=== PATIENT | male | born 1955 | race Caucasian/White ===

== ENCOUNTER 2017-08-06 20:28 | Inpatient (IN) | payer MEDICARE, OTHER ==
[~2017-08-06] VITALS: Ht 180.3 cm; Wt 136.3 kg
[2017-08-06 21:02] LABS: BASOPHILS % (AUTO) 1.3 % (0.0-2.0); EOSINOPHILS % (AUTO) 3.1 % (0.0-3.0); HEMATOCRIT 49.5 % (42.0-52.0); HEMOGLOBIN 17.4 G/DL (14.2-18.0); MEAN CORPUSCULAR VOLUME 88 FL (80-99); MONOCYTES % (AUTO) 9.9 % (1.0-10.0); NEUTROPHILS % (AUTO) 53.7 % (45.0-75.0); PLATELET COUNT 167 K/UL (150-450); RED CELL DISTRIBUTION WIDTH 12.1 % (11.6-14.8); WHITE BLOOD COUNT 10.6 K/UL (4.8-10.8)
[2017-08-06 21:06] LABS: ANION GAP 5 mmol/L (5-15); BLOOD UREA NITROGEN 18 mg/dL (7-18); CALCIUM 9.5 MG/DL (8.5-10.1); CARBON DIOXIDE 29 MMOL/L (21-32); CHLORIDE 103 MMOL/L (98-107); CREATININE 0.9 MG/DL (0.55-1.30); POTASSIUM 3.9 MMOL/L (3.5-5.1); SODIUM 137 MMOL/L (136-145)
--- NOTE | 2017-08-06 21:09 | Emergency Room Report ---
History of Present Illness General Chief Complaint: Chest Pain Source: Patient, Medical Record, EMS Present Illness HPI This is a 62-year-old male who has a history of schizophrenia and also has a pacemaker. [facility]. He presents with chief complaint of chest pain. This is an ongoing problem for several months. He said his been on and off since March. But seemed to be getting worse in the last week. Pain is nonexertional localized the left chest. Better when he goes to sleep. Usually lasts for a few hours. No nausea no vomiting. No fever or chills. Denies any other complaint. He said this is the first time that he tell anybody at the [facility]iary. EMS gave him aspirin and nitroglycerin which seemed to help. Denies any other complaint. No shortness of breath. No diaphoresis. Legs has chronic edema. He is wheelchair-bound. Allergies: Coded Allergies: No Known Allergies (Unverified , 08/06/17) Patient History Past Medical History: see triage record, old chart reviewed, psych hx Past Surgical History: pacemaker Pertinent Family History: none Social History: Reports: smoking Immunizations: other Reviewed Nursing Documentation: PMH: Agreed; PSxH: Agreed Nursing Documentation-PMH Past Medical History: No History, Except For Hx Hypertension: Yes Hx Pacemaker: Yes Hx Asthma: No - Bronchitis Hx Gastrointestinal Problems: Yes - Inflammatory Liver Disease History Of Psychiatric Problem: Yes - Schizophrenia, Anxiety, Major Depressive Disorder Hx Neurological Problems: No - Artifical left Hip Joint, Muscle Weakness, Localized edema, Gout Review of Systems Eye: Denies: eye pain, blurred vision ENT: Denies: ear pain, nose congestion, throat swelling Respiratory: Denies: cough, shortness of breath Cardiovascular: Reports: chest pain; Denies: palpitations Gastrointestinal: Denies: abdominal pain, diarrhea, nausea, vomiting Musculoskeletal: Denies: back pain, joint pain Skin: Denies: rash Neurological: Denies: headache, numbness Endocrine: Denies: increased thirst, increased urine Hematologic/Lymphatic: Denies: easy bruising All Other Systems: negative except mentioned in HPI Physical Exam Vital Signs Date Time Temp Pulse Resp B/P (MAP) Pulse Ox O2 Delivery O2 Flow Rate FiO2 08/06/17 20:22 97.8 96 18 167/85 97 Room Air 97.9 08/06/17 20:26 2.0 vitals with high blood pressure Sp02 EP Interpretation: reviewed, normal General Appearance: well appearing, no apparent distress, alert, obese Head: normocephalic, atraumatic Eyes: bilateral eye PERRL, bilateral eye EOMI ENT: hearing grossly normal, normal pharynx Neck: full range of motion, supple, no meningismus Respiratory: chest non-tender, lungs clear, normal breath sounds Cardiovascular #1: regular rate, rhythm, no murmur Gastrointestinal: normal bowel sounds, non tender, no mass, no organomegaly, no bruit, non-distended Musculoskeletal: back normal, normal range of motion, other - Lower extremities : There is lymphedema. There is hyperemia of the skin to the lower extremities. Some mild warmth on right versus left. Psychiatric: mood/affect normal Skin: warm/dry Medical Decision Making Diagnostic Impression: Primary Impression: Chest pain Qualified Codes: R07.9 - Chest pain, unspecified Additional Impression: Morbid obesity with BMI of 40.0-44.9, adult ER Course This patient presents with chest pain intermittently for prolonged period of time. He does have risk factor with his obesity, smoking, questionable previous heart issue with his maker. Troponin negative. EKG unremarkable. We' ll admit for further workup and cardiology consult. I contacted Dr. Valdez for admission. Lab Results Impression labs unremarkable EKG Diagnostic Results Rate: normal Rhythm: NSR ST Segments: no acute changes Rhythm Strip Diag. Results Rhythm Strip Time: 21:08 EP Interpretation: yes Rate: 70 Rhythm: NSR, no PVC's, no ectopy Chest X-Ray Diagnostic Results Chest X-Ray Diagnostic Results : Chest X-Ray Ordered: Yes # of Views/Limited/Complete: 1 View Indication: Chest Pain EP Interpretation: Yes Interpretation: no consolidation, no effusion, no pneumothorax, no acute cardiopulmonary disease, other - CM, pacer Impression: No acute disease Electronically Signed by: Anders Ray MD Last Vital Signs Date Time Temp Pulse Resp B/P (MAP) Pulse Ox O2 Delivery O2 Flow Rate FiO2 08/06/17 20:26 96 18 Nasal Cannula 2.0 08/06/17 20:22 97.8 167/85 97 97.9 Status: improved Disposition: ADMITTED INPATIENT Condition: Serious ANDERS RAY M.D. Aug 06, 2017 21:09
[2017-08-06] MEDS ORDERED: cefTRIAXone 1 GM in NS 55 ML IVPB ONE (21:15)
[2017-08-06 21:17] LABS: ALANINE AMINOTRANSFERASE 84 U/L (12-78); ALBUMIN 3.2 G/DL (3.4-5.0); ALBUMIN/GLOBULIN RATIO 0.6 (1.0-2.7); ALKALINE PHOSPHATASE 90 U/L (46-116); ASPARTATE AMINO TRANSFERASE 48 U/L (15-37); BILIRUBIN,TOTAL 0.3 MG/DL (0.2-1.0)
--- NOTE | 2017-08-06 21:21 | Diagnostic Imaging Report ---
EXAM: XR Chest, 1 View CLINICAL HISTORY: CP TECHNIQUE: Frontal view of the chest. COMPARISON: No relevant prior studies available. FINDINGS: Lungs: Unremarkable. No consolidation. Pleural space: Unremarkable. No pneumothorax. Heart: Cardiomegaly. Mediastinum: Unremarkable. Bones/joints: Unremarkable. Tubes, lines and devices: Left chest pacer. IMPRESSION: Cardiomegaly, otherwise unremarkable chest.
[2017-08-06] MEDS ORDERED: DULCOLAX10 MG RC (22:12)
[2017-08-06] MEDS ORDERED: BENZTROPINE ME0.5 MG PO (22:12)
[2017-08-06] MEDS ORDERED: ALBUTEROL2.5 MG/3 M INH (22:12)
[2017-08-06] MEDS ORDERED: FLEET ENEMA133 ML RECTAL (22:13)
[2017-08-06] MEDS ORDERED: GABAPENTIN300 MG ORAL (22:13)
[2017-08-06] MEDS ORDERED: GABAPENTIN100 MG ORAL (22:13)
[2017-08-06] MEDS ORDERED: SYNTHROID25 MCG ORAL (22:15)
[2017-08-06] MEDS ORDERED: LATUDA40 MG PO (22:15)
[2017-08-06] MEDS ORDERED: LISINOPRIL20 MG ORAL (22:15)
[2017-08-06] MEDS ORDERED: MILK OF MA400 MG/51 ORAL (22:22)
[2017-08-06] MEDS ORDERED: POTASSIUM CHLO20 ME1 ORAL (22:22)
[2017-08-06] MEDS ORDERED: ACETAMINOPHEN325 M1 ORAL (22:22)
[2017-08-06 22:30] VITALS: BP 111/41
[2017-08-06 23:30] VITALS: BP 102/54
[2017-08-07] VITALS: BP 102/54
[2017-08-07] MEDS ORDERED: Morphine Sulfate 2mg/ml Inj IVP PRN (03:45)
[2017-08-07] MEDS ORDERED: Albuterol/Ipratropium 3ml neb HHN PRN (03:45)
[2017-08-07] MEDS ORDERED: Nitroglycerin Subl 0.4mg tab SL PRN (03:45)
[2017-08-07] MEDS ORDERED: Enalaprilat 2.5mg/2ml Inj IV PRN (03:45)
[2017-08-07] MEDS ORDERED: Ketorolac 30mg Inj IV PRN (03:45)
[2017-08-07] MEDS ORDERED: dilTIAZem HCl 25mg/5ml Inj IV PRN (03:45)
[2017-08-07] MEDS ORDERED: Miralax 17gm pkt ORAL PRN (03:45)
[2017-08-07 04:00] VITALS: BP 100/65
--- NOTE | 2017-08-07 07:16 | Consultation ---
History of Present Illness General Date patient seen: Aug 07, 2017 Time patient seen: 06:45 Chief Complaint: Chest Pain Referring physician: Dr. Valdez Reason for Consultation: in hospital mnagement, asthma/bronchitis Present Illness HPI 62 years old male with past medical history of HTN, bronchitis/asthma, pacemaker , liver disease, hypothyroidism schizophrenia, anxiety, depression, resident of detention facility presented to emergency room with chief complaint of chest pain. ongoing problem for several months chest pain described as nonexertional ,lasting usually few hours. no fever no chills no shortness of breath no dizziness no palpitation sleep helps to alleviate pain paramedics gave en route nitroglycerin and aspirin with some relief Upon evaluation stable vital signs except elevated blood pressure 165/87 troponin negative , pro BNP 35 EKG revealed normal sinus rhythm, no acute ischemic changes Chest x-ray revealed no acute cardiopulmonary pathology Stable renal parameters and electrolytes no leukocytosis stable hemoglobin and hematocrit AST 48 ALT 84 patient admitted for further workup Allergies: Coded Allergies: No Known Allergies (Unverified , 08/06/17) Medication History Scheduled Benztropine Mesylate* (Cogentin*), 1 MG PO BID, (Reported) Gabapentin* (Gabapentin*), 300 MG ORAL BEDTIME, (Reported) Gabapentin* (Gabapentin*), 100 MG ORAL THREE TIMES A DAY, (Reported) Levothyroxine Sodium* (Synthroid*), 50 MCG ORAL DAILY, (Reported) Lisinopril (Lisinopril*), 20 MG ORAL DAILY, (Reported) Lurasidone Hcl (Latuda), 40 MG PO BEDTIME, (Reported) Magnesium Hydroxide* (Milk Of Magnesia*), 30 ML ORAL EVERY 3 DAYS, (Reported) Potassium Chloride* (K-Dur*), 20 MEQ ORAL DAILY, (Reported) Scheduled PRN Acetaminophen* (Acetaminophen 325MG Tablet*), 650 MG ORAL Q4H PRN for Fever/ Headache/Mild Pain, (Reported) Albuterol Sulfate* (Albuterol Sulfate Hhn*), 3 ML INH Q6H PRN for Shortness of Breath, (Reported) Bisacodyl (Dulcolax), 10 MG RC DAILY PRN for Constipation, (Reported) Na Phos,M-B/Na Phos,Di-Ba* (Fleet Enema*), 133 ML RECTAL EVERY OTHER DAY PRN for Constipation, (Reported) Patient History Healthcare decision maker Resuscitation status Full Code Advanced Directive on File No Review of Systems Constitutional: Reports: weakness Eye: Reports: no symptoms ENT: Reports: no symptoms Respiratory: Reports: see HPI, other - bronchitis, asthma Cardiovascular: Reports: see HPI, other - pacemaker, HTN Gastrointestinal: Reports: other - liver disease Genitourinary: Reports: no symptoms Musculoskeletal: Reports: other - w/chair bound Psychiatric: Reports: other - schizophrenia, anxiety, depression Neurological: Reports: no symptoms Endocrine: Reports: other - hypothyroidism Hematologic/Lymphatic: Reports: no symptoms Physical Exam General Appearance: no apparent distress, morbidly obese, other - awake, alert Lines, tubes and drains: peripheral HEENT: normocephalic, atraumatic, anicteric, mucous membranes moist, PERRL Neck: supple Respiratory/Chest: lungs clear, no respiratory distress, no accessory muscle use Cardiovascular/Chest: normal rate - SR on tele Abdomen: normal bowel sounds, non tender, soft - obese Extremities: other - +1 edema BLE Neurologic: abnormal gait - w/chair bound , alert, responsive Last 24 Hour Vital Signs Date Time Temp Pulse Resp B/P (MAP) Pulse Ox O2 Delivery O2 Flow Rate FiO2 08/07/17 04:00 97.6 71 18 100/65 93 Nasal Cannula 2.0 97.6 08/07/17 03:51 56 08/07/17 00:00 68 08/07/17 00:00 97.5 70 20 102/54 93 Nasal Cannula 2.0 97.5 08/06/17 23:30 97.6 70 17 102/54 95 Nasal Cannula 2.0 97.6 08/06/17 23:20 60 15 101/46 95 Nasal Cannula 2.0 08/06/17 22:30 63 17 111/41 95 Nasal Cannula 2.0 08/06/17 20:26 96 18 Nasal Cannula 2.0 08/06/17 20:22 97.8 96 18 167/85 97 Room Air 97.9 Intake and Output 08/06/17 08/07/17 19:00 07:00 Intake Total 310 ml Balance 310 ml Intake Oral 200 ml IV Total 110 ml # Voids 3 Laboratory Tests Test 08/06/17 20:20 08/07/17 05:15 White Blood Count 10.6 K/UL (4.8-10.8) Red Blood Count 5.60 M/UL (4.70-6.10) Hemoglobin 17.4 G/DL (14.2-18.0) Hematocrit 49.5 % (42.0-52.0) Mean Corpuscular Volume 88 FL (80-99) Mean Corpuscular Hemoglobin 31.1 PG (27.0-31.0) H Mean Corpuscular Hemoglobin Concent 35.2 G/DL (32.0-36.0) Red Cell Distribution Width 12.1 % (11.6-14.8) Platelet Count 167 K/UL (150-450) Mean Platelet Volume 9.5 FL (6.5-10.1) Neutrophils (%) (Auto) 53.7 % (45.0-75.0) Lymphocytes (%) (Auto) 32.0 % (20.0-45.0) Monocytes (%) (Auto) 9.9 % (1.0-10.0) Eosinophils (%) (Auto) 3.1 % (0.0-3.0) H Basophils (%) (Auto) 1.3 % (0.0-2.0) Sodium Level 137 MMOL/L (136-145) Potassium Level 3.9 MMOL/L (3.5-5.1) Chloride Level 103 MMOL/L (98-107) Carbon Dioxide Level 29 MMOL/L (21-32) Anion Gap 5 mmol/L (5-15) Blood Urea Nitrogen 18 mg/dL (7-18) Creatinine 0.9 MG/DL (0.55-1.30) Estimat Glomerular Filtration Rate > 60 mL/min (>60) Glucose Level 117 MG/DL (74-106) H Calcium Level 9.5 MG/DL (8.5-10.1) Total Bilirubin 0.3 MG/DL (0.2-1.0) Aspartate Amino Transf (AST/SGOT) 48 U/L (15-37) H Alanine Aminotransferase (ALT/SGPT) 84 U/L (12-78) H Alkaline Phosphatase 90 U/L (46-116) Troponin I 0.000 ng/mL (0.000-0.056) 0.000 ng/mL (0.000-0.056) Pro-B-Type Natriuretic Peptide 35 pg/mL (0-125) Total Protein 8.2 G/DL (6.4-8.2) Albumin 3.2 G/DL (3.4-5.0) L Globulin 5.0 g/dL Albumin/Globulin Ratio 0.6 (1.0-2.7) L Height (Feet): 5 Height (Inches): 11.00 Weight (Pounds): 305 Medications Current Medications Medications (Trade) Dose Ordered Sig/Aster Route PRN Reason Start Time Stop Time Status Last Admin Dose Admin Acetaminophen (Tylenol) 650 mg Q4H PRN ORAL FEVER 08/07/17 03:45 09/06/17 03:44 Albuterol/ Ipratropium (Albuterol/ Ipratropium) 3 ml Q4HRT PRN HHN Shortness of Breath 08/07/17 03:45 08/12/17 03:44 Aspirin (ASA) 162 mg DAILY ORAL 08/07/17 09:00 09/06/17 08:59 Benztropine Mesylate (Cogentin) 0.5 mg EVERY 12 HOURS ORAL 08/07/17 09:00 09/06/17 08:59 Diltiazem HCl (Cardizem) 10 mg EVERY HOUR PRN IV heart rate more than 120, 08/07/17 03:45 09/06/17 03:44 Enalaprilat (Vasotec) 2.5 mg EVERY 6 HOURS PRN IV sbp more than 160 08/07/17 03:45 09/06/17 03:44 Gabapentin (Neurontin) 100 mg THREE TIMES A DAY ORAL 08/07/17 09:00 09/06/17 08:59 Heparin Sodium (Porcine) (Heparin 5000 units/ml) 5,000 units EVERY 12 HOURS SUBQ 08/07/17 09:00 09/06/17 08:59 Ketorolac Tromethamine (Toradol 30mg) 30 mg Q6HR PRN IV moderate pain ( 4-6) 08/07/17 03:45 08/12/17 03:44 Levothyroxine Sodium (Synthroid) 50 mcg DAILY@0630 ORAL 08/07/17 06:30 09/06/17 06:29 08/07/17 06:47 Lisinopril (Prinivil) 20 mg DAILY ORAL 08/07/17 09:00 09/06/17 08:59 Morphine Sulfate (Morphine Sulfate) 2 mg EVERY 4 HOURS PRN IVP severe Pain (Pain Scale 7-10) 08/07/17 03:45 08/14/17 03:44 Nitroglycerin (Ntg) 0.4 mg PRN PRN SL Prn Chest Pain 08/07/17 03:45 09/06/17 03:44 Ondansetron HCl (Zofran) 4 mg Q6H PRN IVP Nausea & Vomiting 08/07/17 03:45 09/06/17 03:44 Polyethylene Glycol (Miralax) 17 gm DAILYPRN PRN ORAL Constipation 08/07/17 03:45 09/06/17 03:44 Temazepam (Restoril) 15 mg HSPRN PRN ORAL Insomnia 08/07/17 03:45 08/14/17 03:44 Ziprasidone (Geodon) 20 mg BIDPC ORAL 08/07/17 09:00 09/06/17 08:59 Assessment/Plan Assessment/Plan ASSESSMENT Chest pain rule, out acute coronary syndrome pacemaker Hypertension Morbid obesity Transaminitis Hypothyroidism Schizophrenia PLAN OF CARE [facility] Serial troponin , EKG to rule out acute AL 2-D Echo Cardiology consult per PMD Aspirin and nitroglycerin Blood pressure management with CATRACHO, consider beta mai if okay with healthcare project manager Lipid panel, TSH Pain management supplemental oxygen titrated to keep pulse ox above 92% pulmonary toilet when necessary no evidence of asthma exacerbation DVT prophylaxis continue current dose of Levothyroxine for now Psych consult per PMD bowel regimen supportive care case discussed and evaluated by supervising physician Lindy Bañuelos NP Aug 07, 2017 07:16
[2017-08-07 08:00] VITALS: BP 154/72
[2017-08-07] MEDS: Benztropine 1mg tab ORAL SCH ×2 (09:22→20:39)
[2017-08-07] MEDS: Ziprasidone 20mg cap ORAL SCH ×2 (09:22→17:23)
[2017-08-07] MEDS: Aspirin Baby 81mg ORAL SCH (09:22)
[2017-08-07] MEDS: Lisinopril 20mg tab ORAL SCH (09:22)
[2017-08-07] MEDS: Heparin 5000 units/ml inj SUBQ SCH ×2 (09:23→20:46)
[2017-08-07 12:00] VITALS: BP 122/56
[2017-08-07 16:00] VITALS: BP 128/68
--- NOTE | 2017-08-07 18:30 | Cardiac Electrophysiology PN ---
Subjective Subjective [id number] Objective Last 24 Hour Vital Signs Date Time Temp Pulse Resp B/P (MAP) Pulse Ox O2 Delivery O2 Flow Rate FiO2 08/07/17 16:00 98.1 68 18 128/68 94 Room Air 98.1 08/07/17 12:00 97.3 65 20 122/56 98 Nasal Cannula 2.0 97.3 08/07/17 12:00 60 08/07/17 09:22 154/72 08/07/17 08:04 66 18 Room Air 21 08/07/17 08:00 60 08/07/17 08:00 97.3 60 18 154/72 93 Nasal Cannula 2.0 97.3 08/07/17 04:00 97.6 71 18 100/65 93 Nasal Cannula 2.0 97.6 08/07/17 03:51 56 08/07/17 00:00 68 08/07/17 00:00 97.5 70 20 102/54 93 Nasal Cannula 2.0 97.5 08/06/17 23:30 97.6 70 17 102/54 95 Nasal Cannula 2.0 97.6 08/06/17 23:20 60 15 101/46 95 Nasal Cannula 2.0 08/06/17 22:30 63 17 111/41 95 Nasal Cannula 2.0 08/06/17 20:26 96 18 Nasal Cannula 2.0 08/06/17 20:22 97.8 96 18 167/85 97 Room Air 97.9 Intake and Output 08/06/17 08/07/17 19:00 07:00 Intake Total 310 ml Balance 310 ml Intake Oral 200 ml IV Total 110 ml # Voids 3 Laboratory Tests Test 08/06/17 20:20 08/07/17 05:15 White Blood Count 10.6 K/UL (4.8-10.8) Red Blood Count 5.60 M/UL (4.70-6.10) Hemoglobin 17.4 G/DL (14.2-18.0) Hematocrit 49.5 % (42.0-52.0) Mean Corpuscular Volume 88 FL (80-99) Mean Corpuscular Hemoglobin 31.1 PG (27.0-31.0) H Mean Corpuscular Hemoglobin Concent 35.2 G/DL (32.0-36.0) Red Cell Distribution Width 12.1 % (11.6-14.8) Platelet Count 167 K/UL (150-450) Mean Platelet Volume 9.5 FL (6.5-10.1) Neutrophils (%) (Auto) 53.7 % (45.0-75.0) Lymphocytes (%) (Auto) 32.0 % (20.0-45.0) Monocytes (%) (Auto) 9.9 % (1.0-10.0) Eosinophils (%) (Auto) 3.1 % (0.0-3.0) H Basophils (%) (Auto) 1.3 % (0.0-2.0) Sodium Level 137 MMOL/L (136-145) Potassium Level 3.9 MMOL/L (3.5-5.1) Chloride Level 103 MMOL/L (98-107) Carbon Dioxide Level 29 MMOL/L (21-32) Anion Gap 5 mmol/L (5-15) Blood Urea Nitrogen 18 mg/dL (7-18) Creatinine 0.9 MG/DL (0.55-1.30) Estimat Glomerular Filtration Rate > 60 mL/min (>60) Glucose Level 117 MG/DL (74-106) H Calcium Level 9.5 MG/DL (8.5-10.1) Total Bilirubin 0.3 MG/DL (0.2-1.0) Aspartate Amino Transf (AST/SGOT) 48 U/L (15-37) H Alanine Aminotransferase (ALT/SGPT) 84 U/L (12-78) H Alkaline Phosphatase 90 U/L (46-116) Troponin I 0.000 ng/mL (0.000-0.056) 0.000 ng/mL (0.000-0.056) Pro-B-Type Natriuretic Peptide 35 pg/mL (0-125) Total Protein 8.2 G/DL (6.4-8.2) Albumin 3.2 G/DL (3.4-5.0) L Globulin 5.0 g/dL Albumin/Globulin Ratio 0.6 (1.0-2.7) Larry Wellington MD Aug 07, 2017 18:30
--- NOTE | 2017-08-07 19:30 | Consultation ---
DATE OF CONSULTATION: NOTE: POOR AUDIO CONSULTING PHYSICIAN: Asad Mayfield M.D. HISTORY OF PRESENT ILLNESS: This is a 62-year-old male patient with . The patient has acute coronary artery syndrome. This patient also was diagnosed with bipolar 2 disorder. He is very confused, disorganized, and mood labile. This patient is originally from [facility]. He came in very confused and disorganized. His mood is labile. thought process. Speech worsened by stresses and acute coronary syndrome. That is why his attending has requested daily psychiatric consultation. SOCIAL HISTORY: He is financially supported by [employer] and Medicare. Lives in [facility]. SUBSTANCE ABUSE HISTORY: Denies drug or alcohol use. ALLERGIES: No known drug allergies. PSYCHIATRIC HISTORY: Bipolar 2 . FAMILY PSYCHIATRIC HISTORY: Denies. STRENGTHS: He is motivated to get better and he is healthy. . WEAKNESS: He is impulsive. MENTAL STATUS EXAMINATION: This is a 62-year-old male. Appearance is disheveled. Attitude, irritable and agitated. Affect, guarded and restricted. Intellect poor. Mood, depressed and anxious. Motor activity, psychomotor agitation. Attention span is poor. Orientation x2. Speech is pressured. Thought process, disorganized and illogical. Thought content, no auditory hallucinations and paranoid delusions. Insight and judgment is poor. DIAGNOSIS: History of bipolar 2. PLAN: Plan for this patient, followed by Psychiatry throughout hospital course. Chart reviewed and discussed with staff. The patient is seen and assessed in his bedside. Tran Batista M.D. DR: RAMSES JOB#: [id number] CC:
--- NOTE | 2017-08-07 19:30 | History and Physical Report ---
DATE OF ADMISSION: 08/06/2017 TIME SEEN: At 9 a.m. ADMITTING PHYSICIAN: Rocael Valdez D.O. CONSULTANTS: 1. Nicolas Brady M.D. 2. Larry Willard M.D. 3. Tran Gentile M.D. CHIEF COMPLAINT: Chest pain. BRIEF HISTORY: This is a 62-year-old male from [facility], who presented with history of chest pain, substernal, sharp, intermittent, no loss of consciousness, slight dizziness. The patient was sent to [place], diagnosed with the above, admitted to [facility] for further care. Currently, calm in bed, slight chest pain and slight shortness of breath, no other complaint. REVIEW OF SYSTEMS: Slight chest pain. Slight shortness of breath. No nausea, vomiting, or diarrhea. PAST MEDICAL HISTORY: Hypertension, asthma, obesity, schizophrenia. PAST SURGICAL HISTORY: Left hip and liver surgery. ALLERGIES: Denies. MEDICATIONS: Include Neurontin, Prinivil, Cogentin, aspirin, heparin, Geodon, Synthroid, nitroglycerin, Tylenol, ketorolac, morphine, Zofran, temazepam, enalapril, and diltiazem. SOCIAL HISTORY: Positive smoking. No alcohol. No intravenous drug abuse. FAMILY HISTORY: Noncontributory. PHYSICAL EXAMINATION: GENERAL: Calm in bed, oriented x3, in no acute distress. VITAL SIGNS: Temperature 97 degrees, pulse 71, respirations 18, and blood pressure 100/65. CARDIOVASCULAR: No murmur. LUNGS: Distant and clear. ABDOMEN: Bowel sounds positive. Nontender. Nondistended. EXTREMITIES: No cyanosis or clubbing. He has 1+ edema. NEUROLOGIC: The patient moves all extremities, slightly weak. LABORATORY DATA: Labs at this time show CBC is normal. BMP shows glucose 117, AST 48, ALT 84. Troponin 0.00. Albumin 3.2. ASSESSMENT: Chest pain, ACS, hypertension, asthma, obesity, schizophrenia. PLAN: Troponin q.8 h. x3. EKG in the morning. O2 and pulmonary treatment. Pain control. Blood pressure control. Dietary followup. Resume home medications. OT, PT, dietary evaluation. CBC and BMP in the morning. Dr. Brady, Dr. Willard, and Dr. Gentile to consult. Rocael Valdez D.O. DR: Waleska JOB#: [id number] CC:
--- NOTE | 2017-08-07 19:45 | Consultation ---
DATE OF CONSULTATION: 08/07/2017 CARDIOLOGY CONSULTATION CONSULTING PHYSICIAN: Larry Willard M.D. REFERRING PHYSICIAN: Rocael Valdez D.O. REASON FOR CONSULTATION: Chest pain and management of hypertension and pacemaker. HISTORY OF PRESENT ILLNESS: The patient is a 62-year-old gentleman with history of hypertension, asthma, morbid obesity as well as history for permanent pacemaker implantation as well as hypothyroidism and schizophrenia who is a resident of [facility] Facility was brought to the emergency room for chest pain. The patient has been having this for several months and is nonexertional lasting a few hours. The patient denies any nausea, vomiting, or known coronary artery disease. The patient was admitted and a Cardiology consultation was obtained for further evaluation. The patient's BNP was only 35 and troponin was negative. Chest x-ray showed no acute cardiopulmonary pathology. REVIEW OF SYSTEMS: Review of systems was thoroughly performed and was negative other than what was mentioned in the history of present illness. PAST MEDICAL HISTORY: As as mentioned above. ALLERGIES: He has no known drug allergies. MEDICATIONS: Per reconciliation. FAMILY HISTORY: Noncontributory. PHYSICAL EXAMINATION: VITAL SIGNS: Blood pressure 128/68, pulse 60, respirations 18, and he is afebrile. HEAD AND NECK: Shows no JVD. LUNGS: Decreased breath sounds. CARDIOVASCULAR: Regular S1 and S2 with no gallop or murmur. The pacemaker is in left subclavian. ABDOMEN: Morbidly obese EXTREMITIES: A 2+ pitting edema. DIAGNOSTIC DATA: Echocardiogram showed ejection fraction of 55% to 60%. His EKG shows normal sinus rhythm, normal electrocardiogram. LABORATORY DATA: White count of 10.7, hemoglobin 17.4, hematocrit of 49.5, and platelet count 167. Sodium 137, potassium 3.9, BUN of 18, creatinine 0.9, and glucose of 117. Troponin negative x2. ASSESSMENT AND PLAN: 1. Chest pain. The patient's pain is atypical. The patient will be ruled out for myocardial infarction by serial cardiac enzymes. EKG is completely normal, this is likely noncardiac. 2. Status post dual-chamber permanent pacemaker implantation. Chest x-ray also confirmed there is a dual-chamber pacemaker. The patient does know the brand of the pacemaker. We will try to call the half-way and try to find the brand of the pacemaker for further interrogation. 3. Hypertension, on lisinopril 20 mg daily. 4. Hypothyroidism on Synthroid. 5. Morbid obesity. 6. Chronic obstructive pulmonary disease. 7. Schizophrenia. Thank you very much, Dr. Valdez, for allowing me to participate in the care of this patient. Please do not hesitate to contact me for any questions regarding my evaluation. Sincerely, Larry Willard M.D. DR: Tommy JOB#: [id number] CC:
[2017-08-07 20:00] VITALS: BP 100/50
[2017-08-08 05:36] LABS: EOSINOPHILS % (AUTO) 4.3 % (0.0-3.0); HEMATOCRIT 50.2 % (42.0-52.0); LYMPHOCYTES % (AUTO) 28.8 % (20.0-45.0); MEAN CORPUSCULAR VOLUME 90 FL (80-99); MONOCYTES % (AUTO) 11.4 % (1.0-10.0); NEUTROPHILS % (AUTO) 54.5 % (45.0-75.0); PLATELET COUNT 169 K/UL (150-450); RED BLOOD COUNT 5.55 M/UL (4.70-6.10); WHITE BLOOD COUNT 9.5 K/UL (4.8-10.8)
[2017-08-08 06:15] LABS: ANION GAP 5 mmol/L (5-15); BLOOD UREA NITROGEN 19 mg/dL (7-18); CALCIUM 9.2 MG/DL (8.5-10.1); CARBON DIOXIDE 29 MMOL/L (21-32); CHLORIDE 105 MMOL/L (98-107); CREATININE 0.9 MG/DL (0.55-1.30); SODIUM 138 MMOL/L (136-145)
[2017-08-08 06:31] LABS: CHOLESTEROL 134 MG/DL (< 200); HDL CHOLESTEROL 33 MG/DL (40-60); TRIGLYCERIDES 131 MG/DL (30-150)
--- NOTE | 2017-08-08 08:10 | Pulmonology Progress Note ---
Assessment/Plan Assessment/Plan ASSESSMENT atypical chest pain / ACS was ruled out pacemaker Hypertension Morbid obesity Transaminitis Hypothyroidism with elevated TSH Schizophrenia Bipolar disorder PLAN OF CARE ANUJA Serial troponin negative, EKG no acute ischemic changes, ruled out for ACS 2-D Echo with pEF 55-60% Cardiology follows Aspirin and nitroglycerin Blood pressure management with CATRACHO, consider beta mai if okay with technical sales specialist cardio started on diuresis, monitor volumes, cardiorenal parameter Lipid panel stable, TSH elevated, increase Synthroid dose Pain management supplemental oxygen titrated to keep pulse ox above 92% pulmonary toilet when necessary no evidence of asthma exacerbation DVT prophylaxis Psych follows, psych meds as per psych recs bowel regimen supportive care case discussed and evaluated by supervising physician Subjective Allergies: Coded Allergies: No Known Allergies (Unverified , 08/06/17) Subjective denies chest pain no SOB pulse ox stable on RA Objective Last 24 Hour Vital Signs Date Time Temp Pulse Resp B/P (MAP) Pulse Ox O2 Delivery O2 Flow Rate FiO2 08/08/17 03:38 60 08/08/17 00:00 61 08/07/17 20:00 98.2 60 18 100/50 94 Room Air 98.2 08/07/17 20:00 60 08/07/17 19:30 68 18 Room Air 21 08/07/17 16:00 98.1 68 18 128/68 94 Room Air 98.1 08/07/17 16:00 60 08/07/17 12:00 97.3 65 20 122/56 98 Nasal Cannula 2.0 97.3 08/07/17 12:00 60 08/07/17 09:22 154/72 08/07/17 08:04 66 18 Room Air 21 Intake and Output 08/07/17 08/08/17 19:00 07:00 Intake Total 700 ml Output Total 1000 ml 1600 ml Balance -300 ml -1600 ml Intake Oral 700 ml Output Urine Total 1000 ml 1600 ml # Voids 2 # Bowel Movements 1 Objective General Appearance: no apparent distress, morbidly obese, awake, alert Lines, tubes and drains: peripheral HEENT: normocephalic, atraumatic, anicteric, mucous membranes moist, PERRL Neck: supple Respiratory/Chest: lungs clear, no respiratory distress, no accessory muscle use Cardiovascular/Chest: normal rate - SR on tele Abdomen: normal bowel sounds, non tender, soft - obese Extremities: other - +1 edema BLE Neurologic: abnormal gait - w/chair bound , alert, responsive Laboratory Tests 08/08/17 04:50: White Blood Count 9.5, Red Blood Count 5.55, Hemoglobin 17.0, Hematocrit 50.2, Mean Corpuscular Volume 90, Mean Corpuscular Hemoglobin 30.7, Mean Corpuscular Hemoglobin Concent 34.0, Red Cell Distribution Width 12.0, Platelet Count 169, Mean Platelet Volume 9.8, Neutrophils (%) (Auto) 54.5, Lymphocytes (%) (Auto) 28.8, Monocytes (%) (Auto) 11.4H, Eosinophils (%) (Auto) 4.3H, Basophils (%) ( Auto) 1.0, Prothrombin Time 10.4, Prothromb Time International Ratio 1.0, Activated Partial Thromboplast Time 28, Sodium Level 138, Potassium Level 4.0, Chloride Level 105, Carbon Dioxide Level 29, Anion Gap 5, Blood Urea Nitrogen 19H, Creatinine 0.9, Estimat Glomerular Filtration Rate > 60, Glucose Level 100 , Calcium Level 9.2, Troponin I 0.000, C-Reactive Protein, Quantitative 0.6, Triglycerides Level 131, Cholesterol Level 134, LDL Cholesterol 95, HDL Cholesterol 33L, Cholesterol/HDL Ratio 4.1, Thyroid Stimulating Hormone (TSH) 9.232H Current Medications Medications (Trade) Dose Ordered Sig/Aster Route PRN Reason Start Time Stop Time Status Last Admin Dose Admin Acetaminophen (Tylenol) 650 mg Q4H PRN ORAL FEVER 08/07/17 03:45 09/06/17 03:44 Albuterol/ Ipratropium (Albuterol/ Ipratropium) 3 ml Q4HRT PRN HHN Shortness of Breath 08/07/17 03:45 08/12/17 03:44 Aspirin (ASA) 162 mg DAILY ORAL 08/07/17 09:00 09/06/17 08:59 08/07/17 09:22 Benztropine Mesylate (Cogentin) 0.5 mg EVERY 12 HOURS ORAL 08/07/17 09:00 09/06/17 08:59 08/07/17 20:39 Diltiazem HCl (Cardizem) 10 mg EVERY HOUR PRN IV heart rate more than 120, 08/07/17 03:45 09/06/17 03:44 Enalaprilat (Vasotec) 2.5 mg EVERY 6 HOURS PRN IV sbp more than 160 08/07/17 03:45 09/06/17 03:44 Furosemide (Lasix) 40 mg DAILY IV 08/08/17 09:00 09/07/17 08:59 Gabapentin (Neurontin) 100 mg THREE TIMES A DAY ORAL 08/07/17 09:00 09/06/17 08:59 08/07/17 17:23 Heparin Sodium (Porcine) (Heparin 5000 units/ml) 5,000 units EVERY 12 HOURS SUBQ 08/07/17 09:00 09/06/17 08:59 08/07/17 20:46 Ketorolac Tromethamine (Toradol 30mg) 30 mg Q6HR PRN IV moderate pain ( 4-6) 08/07/17 03:45 08/12/17 03:44 Levothyroxine Sodium (Synthroid) 50 mcg DAILY@0630 ORAL 08/07/17 06:30 09/06/17 06:29 08/08/17 06:41 Lisinopril (Prinivil) 20 mg DAILY ORAL 08/07/17 09:00 09/06/17 08:59 08/07/17 09:22 Morphine Sulfate (Morphine Sulfate) 2 mg EVERY 4 HOURS PRN IVP severe Pain (Pain Scale 7-10) 08/07/17 03:45 08/14/17 03:44 Nitroglycerin (Ntg) 0.4 mg PRN PRN SL Prn Chest Pain 08/07/17 03:45 09/06/17 03:44 Ondansetron HCl (Zofran) 4 mg Q6H PRN IVP Nausea & Vomiting 08/07/17 03:45 09/06/17 03:44 Polyethylene Glycol (Miralax) 17 gm DAILYPRN PRN ORAL Constipation 08/07/17 03:45 09/06/17 03:44 Temazepam (Restoril) 15 mg HSPRN PRN ORAL Insomnia 08/07/17 03:45 08/14/17 03:44 Ziprasidone (Geodon) 20 mg BIDPC ORAL 08/07/17 09:00 09/06/17 08:59 08/07/17 17:23 Lindy Bañuelos SYSTEM DEVELOPMENT MANAGER Aug 08, 2017 08:10
[2017-08-08 08:41] VITALS: BP 122/67
[2017-08-08] MEDS: Aspirin Baby 81mg ORAL SCH (08:58)
[2017-08-08] MEDS: Lisinopril 20mg tab ORAL SCH (08:58)
[2017-08-08] MEDS: Benztropine 1mg tab ORAL SCH ×2 (08:58→20:42)
[2017-08-08] MEDS: Ziprasidone 20mg cap ORAL SCH ×2 (08:58→17:29)
[2017-08-08] MEDS: Heparin 5000 units/ml inj SUBQ SCH ×2 (08:59→20:44)
--- NOTE | 2017-08-08 09:18 | General Progress Note ---
Assessment/Plan Problem List: (1) Asthma ICD Codes: J45.909 - Unspecified asthma, uncomplicated SNOMED: 470995906 (2) Chest pain ICD Codes: R07.9 - Chest pain, unspecified SNOMED: 01860315, 591966616 Qualifiers: Qualified Codes: R07.9 - Chest pain, unspecified (3) Morbid obesity with BMI of 40.0-44.9, adult ICD Codes: E66.01 - Morbid (severe) obesity due to excess calories; Z68.41 - Body mass index (BMI) 40.0-44.9, adult SNOMED: 759409667, 176699240 (4) Acute coronary syndrome ICD Codes: I24.9 - Acute ischemic heart disease, unspecified SNOMED: 046207881 Status: unchanged Assessment/Plan ot pt diet bp pain control cbc bmp am Subjective Constitutional: Reports: weakness Allergies: Coded Allergies: No Known Allergies (Unverified , 08/06/17) All Systems: reviewed and negative except above Subjective calm in bed tired Objective Last 24 Hour Vital Signs Date Time Temp Pulse Resp B/P (MAP) Pulse Ox O2 Delivery O2 Flow Rate FiO2 08/08/17 08:58 122/67 08/08/17 08:41 97.7 63 22 122/67 96 Nasal Cannula 4.0 97.7 08/08/17 03:38 60 08/08/17 00:00 61 08/07/17 20:00 98.2 60 18 100/50 94 Room Air 98.2 08/07/17 20:00 60 08/07/17 19:30 68 18 Room Air 21 08/07/17 16:00 98.1 68 18 128/68 94 Room Air 98.1 08/07/17 16:00 60 08/07/17 12:00 97.3 65 20 122/56 98 Nasal Cannula 2.0 97.3 08/07/17 12:00 60 08/07/17 09:22 154/72 Intake and Output 08/07/17 08/08/17 19:00 07:00 Intake Total 700 ml Output Total 1000 ml 1600 ml Balance -300 ml -1600 ml Intake Oral 700 ml Output Urine Total 1000 ml 1600 ml # Voids 2 # Bowel Movements 1 Laboratory Tests 08/08/17 04:50: White Blood Count 9.5, Red Blood Count 5.55, Hemoglobin 17.0, Hematocrit 50.2, Mean Corpuscular Volume 90, Mean Corpuscular Hemoglobin 30.7, Mean Corpuscular Hemoglobin Concent 34.0, Red Cell Distribution Width 12.0, Platelet Count 169, Mean Platelet Volume 9.8, Neutrophils (%) (Auto) 54.5, Lymphocytes (%) (Auto) 28.8, Monocytes (%) (Auto) 11.4H, Eosinophils (%) (Auto) 4.3H, Basophils (%) ( Auto) 1.0, Prothrombin Time 10.4, Prothromb Time International Ratio 1.0, Activated Partial Thromboplast Time 28, Sodium Level 138, Potassium Level 4.0, Chloride Level 105, Carbon Dioxide Level 29, Anion Gap 5, Blood Urea Nitrogen 19H, Creatinine 0.9, Estimat Glomerular Filtration Rate > 60, Glucose Level 100 , Calcium Level 9.2, Troponin I 0.000, C-Reactive Protein, Quantitative 0.6, Triglycerides Level 131, Cholesterol Level 134, LDL Cholesterol 95, HDL Cholesterol 33L, Cholesterol/HDL Ratio 4.1, Thyroid Stimulating Hormone (TSH) 9.232H Height (Feet): 5 Height (Inches): 11.00 Weight (Pounds): 305 General Appearance: lethargic EENT: normal ENT inspection Neck: normal alignment Cardiovascular: normal peripheral pulses, normal rate, regular rhythm Respiratory/Chest: chest wall non-tender, lungs clear, normal breath sounds Abdomen: normal bowel sounds, non tender, soft Extremities: normal inspection Edema: 1+ Arm (L), 1+ Arm (R), 1+ Leg (L), 1+ Leg (R), 1+ Pedal (L), 1+ Pedal ( R), 1+ Generalized Edema: trace edema Neurologic: responsive, motor weakness Skin: normal pigmentation, warm/dry Rocael Valdez DO Aug 08, 2017 09:18
[2017-08-08 12:34] VITALS: BP 123/62
--- NOTE | 2017-08-08 14:43 | Cardiac Electrophysiology PN ---
Assessment/Plan Assessment/Plan 1. Atypical Chest pain. Ruled out for myocardial infarction by serial cardiac enzymes. EKG is normal 2. Status post dual-chamber permanent pacemaker implantation. Chest x-ray also confirmed there is a dual-chamber pacemaker. The patient does not know the brand of the pacemaker. We will try to call the [facility] and try to find the brand of the pacemaker for further interrogation. 3. Hypertension, on lisinopril 20 mg daily. 4. Hypothyroidism on Synthroid. 5. Morbid obesity. 6. Chronic obstructive pulmonary disease. 7. Schizophrenia. Subjective Subjective Feeling better with diuresis. Had an episode of Mobitz type2. Objective Last 24 Hour Vital Signs Date Time Temp Pulse Resp B/P (MAP) Pulse Ox O2 Delivery O2 Flow Rate FiO2 08/08/17 12:34 97.5 76 22 123/62 92 Room Air 97.5 08/08/17 11:28 61 08/08/17 08:58 122/67 08/08/17 08:41 97.7 63 22 122/67 96 Nasal Cannula 4.0 97.7 08/08/17 07:56 75 08/08/17 03:38 60 08/08/17 00:00 61 08/07/17 20:00 98.2 60 18 100/50 94 Room Air 98.2 08/07/17 20:00 60 08/07/17 19:30 68 18 Room Air 21 08/07/17 16:00 98.1 68 18 128/68 94 Room Air 98.1 08/07/17 16:00 60 Intake and Output 08/07/17 08/08/17 19:00 07:00 Intake Total 700 ml Output Total 1000 ml 1600 ml Balance -300 ml -1600 ml Intake Oral 700 ml Output Urine Total 1000 ml 1600 ml # Voids 2 # Bowel Movements 1 Laboratory Tests Test 08/08/17 04:50 White Blood Count 9.5 K/UL (4.8-10.8) Red Blood Count 5.55 M/UL (4.70-6.10) Hemoglobin 17.0 G/DL (14.2-18.0) Hematocrit 50.2 % (42.0-52.0) Mean Corpuscular Volume 90 FL (80-99) Mean Corpuscular Hemoglobin 30.7 PG (27.0-31.0) Mean Corpuscular Hemoglobin Concent 34.0 G/DL (32.0-36.0) Red Cell Distribution Width 12.0 % (11.6-14.8) Platelet Count 169 K/UL (150-450) Mean Platelet Volume 9.8 FL (6.5-10.1) Neutrophils (%) (Auto) 54.5 % (45.0-75.0) Lymphocytes (%) (Auto) 28.8 % (20.0-45.0) Monocytes (%) (Auto) 11.4 % (1.0-10.0) H Eosinophils (%) (Auto) 4.3 % (0.0-3.0) H Basophils (%) (Auto) 1.0 % (0.0-2.0) Prothrombin Time 10.4 SEC (9.30-11.50) Prothromb Time International Ratio 1.0 (0.9-1.1) Activated Partial Thromboplast Time 28 SEC (23-33) Sodium Level 138 MMOL/L (136-145) Potassium Level 4.0 MMOL/L (3.5-5.1) Chloride Level 105 MMOL/L (98-107) Carbon Dioxide Level 29 MMOL/L (21-32) Anion Gap 5 mmol/L (5-15) Blood Urea Nitrogen 19 mg/dL (7-18) H Creatinine 0.9 MG/DL (0.55-1.30) Estimat Glomerular Filtration Rate > 60 mL/min (>60) Glucose Level 100 MG/DL (74-106) Calcium Level 9.2 MG/DL (8.5-10.1) Troponin I 0.000 ng/mL (0.000-0.056) C-Reactive Protein, Quantitative 0.6 mg/dL (0.00-0.90) Triglycerides Level 131 MG/DL (30-150) Cholesterol Level 134 MG/DL (< 200) LDL Cholesterol 95 mg/dL (<100) HDL Cholesterol 33 MG/DL (40-60) L Cholesterol/HDL Ratio 4.1 (3.3-4.4) Thyroid Stimulating Hormone (TSH) 9.232 uiU/mL (0.358-3.740) Objective HEAD AND NECK: No JVD. LUNGS: Decreased breath sounds. CARDIOVASCULAR: Regular S1 and S2 with no gallop or murmur. The pacemaker is in left subclavian. ABDOMEN: Morbidly obese EXTREMITIES: A 2+ pitting edema. Larry Willard MD Aug 08, 2017 14:42
[2017-08-08 16:00] VITALS: BP 128/68
--- NOTE | 2017-08-08 17:45 | Cardiology Report ---
APPROVED REPORT EKG Measurement Heart [id number] Normal sinus rhythm Normal ECG
[2017-08-08 20:00] VITALS: BP 122/70
[2017-08-08] MEDS ORDERED: Milk of Magnesia 30ml Ud ORAL ONE (21:00)
[2017-08-09] VITALS: BP 100/60
[2017-08-09 04:04] LABS: BASOPHILS % (AUTO) 0.9 % (0.0-2.0); EOSINOPHILS % (AUTO) 3.7 % (0.0-3.0); HEMATOCRIT 50.4 % (42.0-52.0); HEMOGLOBIN 17.1 G/DL (14.2-18.0); MEAN CORPUSCULAR VOLUME 90 FL (80-99); NEUTROPHILS % (AUTO) 49.3 % (45.0-75.0); PLATELET COUNT 165 K/UL (150-450)
[2017-08-09 04:18] LABS: ANION GAP 3 mmol/L (5-15); BLOOD UREA NITROGEN 22 mg/dL (7-18); CALCIUM 9.2 MG/DL (8.5-10.1); CARBON DIOXIDE 32 MMOL/L (21-32); CHLORIDE 104 MMOL/L (98-107); POTASSIUM 4.1 MMOL/L (3.5-5.1); SODIUM 139 MMOL/L (136-145)
[2017-08-09 04:22] VITALS: BP 105/55
[2017-08-09 08:00] VITALS: BP 154/76
[2017-08-09] MEDS: Ziprasidone 20mg cap ORAL SCH ×2 (08:52→17:20)
[2017-08-09] MEDS: Lisinopril 20mg tab ORAL SCH (08:52)
[2017-08-09] MEDS: Aspirin Baby 81mg ORAL SCH (08:52)
[2017-08-09] MEDS: Heparin 5000 units/ml inj SUBQ SCH ×2 (08:53→20:54)
[2017-08-09] MEDS: Benztropine 1mg tab ORAL SCH ×2 (08:54→20:53)
--- NOTE | 2017-08-09 09:13 | Cardiology Report ---
APPROVED REPORT EXAM: Two-dimensional and M-mode echocardiogram with Doppler and color Doppler. INDICATION Left ventricular function M-Mode DIMENSIONS IVSd1.0 (0.7-1.1cm)Left Atrium (MM)5.1 (1.6-4.0cm) LVDd5.5 (3.5-5.6cm)Aortic Root2.9 (2.0-3.7cm) PWd1.1 (0.7-1.1cm)Aortic Cusp Exc.2.0 (1.5-2.0cm) LVDs4.4 (2.5-4.0cm) PWs1.4 cm Technically limited and difficult study due to poor acoustical windows. Normal left ventricular chamber size, systolic function and wall motion. Left ventricular ejection fraction estimated to be 55-60 %. No evidence of left ventricular hypertrophy. No evidence of pericardial or pleural effusion. Left cardiac chamber sizes are within normal limits. Mild right atrial enlargement by 2D. Focal aortic valve sclerosis with adequate cusp excursion. Thickened mitral valve leaflets with normal excursion. Mild mitral annulus and aortic root calcification. Pulmonic valve not well visualized. Normal tricuspid valve structure. IVC is normal in size and collapsible with respiration. A color flow and spectral Doppler study was performed and revealed: No aortic regurgitation. No mitral regurgitation. Mitral diastolic velocities suggest reduced left ventricular relaxation c/w diastolic dysfunction grade 1. No tricuspid regurgitation. Pulmonic regurgitation present.
--- NOTE | 2017-08-09 10:00 | Consultation ---
DATE OF CONSULTATION: 08/08/2017 ENDOCRINOLOGY CONSULTATION CONSULTING PHYSICIAN: Macario Varela M.D. REFERRING PHYSICIAN: Rocael Valdez D.O. REASON FOR CONSULTATION: Hypothyroidism. HISTORY OF PRESENT ILLNESS: The patient is a pleasant 62-year-old male with past medical history of hypertension, asthma, hypothyroidism, pacemaker placement, and schizophrenia, who resides in a skilled nurse facility. The patient was admitted to the hospital for evaluation of chest pain by Dr. Larry Willard, wellness consultant. TSH was obtained, which was as high as 9. Endocrinology was consulted as an outpatient. He is on Synthroid 50 mcg. PAST MEDICAL HISTORY: 1. Asthma. 2. Morbid obesity. 3. Hypertension. 4. Schizophrenia. 5. pacemaker placement. 6. Hypothyroidism. MEDICATIONS: Reviewed and reconciled. FAMILY HISTORY: Noncontributory. REVIEW OF SYSTEMS: A 12-point review of systems was performed. The pertinent positives and negatives are as mentioned in the history of present illness. PHYSICAL EXAMINATION: VITAL SIGNS: Blood pressure 128/68, pulse of 60, temperature of 98 degrees, and respiratory rate 18. HEENT: Pupils are equal and reactive to light. Sclerae are anicteric. NECK: No JVD. No thyromegaly. No bruit. LUNGS: Clear. HEART: Regular rate and rhythm. ABDOMEN: Positive bowel sounds. EXTREMITIES: No clubbing, cyanosis, or edema. LABORATORY DATA: TSH as discussed. WBC 9, hemoglobin 17, hematocrit 44. Sodium 138, potassium 4, chloride 105, bicarbonate 29, BUN 19, and creatinine 0.9. TSH of 9.2. . DIAGNOSES: 1. Chest pain. 2. Hypertension. 3. Hypothyroidism. 4. Obesity. 5. Schizophrenia. DISCUSSION: The patient's Synthroid dose is not adequate. The dosage needs to be increased to 75 mcg daily. In 4-6 weeks he needs to have a TSH and free T4 measured for further adjustment. We will follow the patient closely during hospital stay. Troponins are negative. Thank you, Dr. Valdez, for the courtesy of this consultation. Macario Varela M.D. DR: Ct JOB#: [id number] CC: EARNESTINE
--- NOTE | 2017-08-09 10:00 | Consultation ---
DATE OF CONSULTATION: 08/08/2017 HISTORY: This is a 62-year-old male patient, here with acute coronary syndrome. The patient is confused and disorganized and mood labile. The reason why he was admitted is acute coronary syndrome, but he has altered mental status secondary to the stress of his medical illness. That is why, his attending physician has requested daily psychiatric consultation. MENTAL STATUS EXAMINATION: This is a 62-year-old male. Appearance is disheveled. Attitude, irritable and agitated. Affect, guarded and restricted. Intellect poor. Mood, depressed and anxious. Motor activity, psychomotor agitation. Attention span is poor. Orientation x2. Speech is low volume and slurred. Thought process, disorganized. Thought content, paranoid delusions. Insight and judgment is poor. DIAGNOSIS: Major depression with psychotic features, rule out pseudodementia. PLAN: Treat the patient with Geodon 20 mg twice a day to reduce psychosis and stabilize his mood, 00:42 0.5 mg q.12 h., and Neurontin 100 mg 3 times a day. Provide 18 to 20 minutes of cognitive behavioral therapy to help the patient recognize his 01:01 due to outside stimuli and 01:05 more positive thinking to improve his mood and this is 18 to 20 minutes of cognitive behavior therapy. Chart reviewed. Discussed with staff. Seen and assessed in his room. Tran Batista M.D. DR: AUGUSTINE JOB#: [id number] CC:
--- NOTE | 2017-08-09 10:22 | Pulmonology Progress Note ---
Assessment/Plan Problems: (1) Chest pain (2) Asthma (3) Acute coronary syndrome (4) Morbid obesity with BMI of 40.0-44.9, adult Assessment/Plan respiratory treatment titrate fio2 to sat of 92% check sputum rule out NH, serial ekg, and troponin were negative. monitor BP dvt prophylaxis. Subjective ROS Limited/Unobtainable: No Constitutional: Reports: no symptoms HEENT: Repors: no symptoms Respiratory: Reports: no symptoms Allergies: Coded Allergies: No Known Allergies (Unverified , 08/06/17) Objective Last 24 Hour Vital Signs Date Time Temp Pulse Resp B/P (MAP) Pulse Ox O2 Delivery O2 Flow Rate FiO2 08/09/17 08:52 154/76 08/09/17 08:00 98.0 73 22 154/76 92 Room Air 98.0 08/09/17 08:00 76 08/09/17 04:22 97.3 73 20 105/55 95 Room Air 97.3 08/09/17 04:00 78 08/09/17 00:00 70 08/09/17 00:00 96.3 70 18 100/60 95 Room Air 96.3 08/08/17 20:00 97.9 74 18 122/70 95 Room Air 97.9 08/08/17 20:00 78 08/08/17 19:41 74 20 Room Air 21 08/08/17 16:00 98.1 68 18 128/68 94 Room Air 98.1 08/08/17 15:10 69 08/08/17 12:34 97.5 76 22 123/62 92 Room Air 97.5 08/08/17 11:28 61 Intake and Output 08/08/17 08/09/17 19:00 07:00 Intake Total 750 ml 120 ml Output Total 350 ml 700 ml Balance 400 ml -580 ml Intake Oral 750 ml 120 ml Output Urine Total 350 ml 700 ml # Voids 3 General Appearance: WD/WN HEENT: normocephalic Respiratory/Chest: chest wall non-tender, lungs clear Cardiovascular: normal peripheral pulses, normal rate Abdomen: normal bowel sounds, soft, non tender Genitourinary: normal external genitalia Extremities: no cyanosis Skin: no rash Neurologic/Psychiatric: no motor/sensory deficits Lymphatic: no neck adenopathy Microbiology Date/Time Source Procedure Growth Status 08/06/17 22:08 Rectum VRE Culture - Final NO VANCOMYCIN RESISTANT ENTEROCOCCUS ... Complete Laboratory Tests 08/09/17 03:15: White Blood Count 9.0, Red Blood Count 5.60, Hemoglobin 17.1, Hematocrit 50.4, Mean Corpuscular Volume 90, Mean Corpuscular Hemoglobin 30.6, Mean Corpuscular Hemoglobin Concent 34.0, Red Cell Distribution Width 12.0, Platelet Count 165, Mean Platelet Volume 10.3H, Neutrophils (%) (Auto) 49.3, Lymphocytes (%) (Auto) 34.0, Monocytes (%) (Auto) 12.0H, Eosinophils (%) (Auto) 3.7H, Basophils (%) ( Auto) 0.9, Sodium Level 139, Potassium Level 4.1, Chloride Level 104, Carbon Dioxide Level 32, Anion Gap 3L, Blood Urea Nitrogen 22H, Creatinine 1.0, Estimat Glomerular Filtration Rate > 60, Glucose Level 112H, Calcium Level 9.2, Troponin I 0.000 Current Medications Medications (Trade) Dose Ordered Sig/Aster Route PRN Reason Start Time Stop Time Status Last Admin Dose Admin Acetaminophen (Tylenol) 650 mg Q4H PRN ORAL FEVER 08/07/17 03:45 09/06/17 03:44 Albuterol/ Ipratropium (Albuterol/ Ipratropium) 3 ml Q4HRT PRN HHN Shortness of Breath 08/07/17 03:45 08/12/17 03:44 Aspirin (ASA) 162 mg DAILY ORAL 08/07/17 09:00 09/06/17 08:59 08/09/17 08:52 Benztropine Mesylate (Cogentin) 0.5 mg EVERY 12 HOURS ORAL 08/07/17 09:00 09/06/17 08:59 08/09/17 08:54 Diltiazem HCl (Cardizem) 10 mg EVERY HOUR PRN IV heart rate more than 120, 08/07/17 03:45 09/06/17 03:44 Enalaprilat (Vasotec) 2.5 mg EVERY 6 HOURS PRN IV sbp more than 160 08/07/17 03:45 09/06/17 03:44 Furosemide (Lasix) 40 mg DAILY IV 08/08/17 09:00 09/07/17 08:59 08/09/17 08:54 Gabapentin (Neurontin) 100 mg THREE TIMES A DAY ORAL 08/07/17 09:00 09/06/17 08:59 08/09/17 08:52 Heparin Sodium (Porcine) (Heparin 5000 units/ml) 5,000 units EVERY 12 HOURS SUBQ 08/07/17 09:00 09/06/17 08:59 08/09/17 08:53 Ketorolac Tromethamine (Toradol 30mg) 30 mg Q6HR PRN IV moderate pain ( 4-6) 08/07/17 03:45 08/12/17 03:44 Levothyroxine Sodium (Synthroid) 75 mcg DAILY@0630 ORAL 08/09/17 06:30 09/08/17 06:29 08/09/17 06:14 Lisinopril (Prinivil) 20 mg DAILY ORAL 08/07/17 09:00 09/06/17 08:59 08/09/17 08:52 Morphine Sulfate (Morphine Sulfate) 2 mg EVERY 4 HOURS PRN IVP severe Pain (Pain Scale 7-10) 08/07/17 03:45 08/14/17 03:44 Nitroglycerin (Ntg) 0.4 mg PRN PRN SL Prn Chest Pain 08/07/17 03:45 09/06/17 03:44 Ondansetron HCl (Zofran) 4 mg Q6H PRN IVP Nausea & Vomiting 08/07/17 03:45 09/06/17 03:44 Polyethylene Glycol (Miralax) 17 gm DAILYPRN PRN ORAL Constipation 08/07/17 03:45 09/06/17 03:44 Temazepam (Restoril) 15 mg HSPRN PRN ORAL Insomnia 08/07/17 03:45 08/14/17 03:44 Ziprasidone (Geodon) 20 mg BIDPC ORAL 08/07/17 09:00 09/06/17 08:59 08/09/17 08:52 Nicolas Brady MD Aug 09, 2017 10:22
[2017-08-09 11:58] VITALS: BP 118/60
--- NOTE | 2017-08-09 11:59 | General Progress Note ---
Assessment/Plan Problem List: (1) Asthma ICD Codes: J45.909 - Unspecified asthma, uncomplicated SNOMED: 205156517 (2) Chest pain ICD Codes: R07.9 - Chest pain, unspecified SNOMED: 83255494, 341599679 Qualifiers: Qualified Codes: R07.9 - Chest pain, unspecified (3) Morbid obesity with BMI of 40.0-44.9, adult ICD Codes: E66.01 - Morbid (severe) obesity due to excess calories; Z68.41 - Body mass index (BMI) 40.0-44.9, adult SNOMED: 229021877, 017718722 (4) Acute coronary syndrome ICD Codes: I24.9 - Acute ischemic heart disease, unspecified SNOMED: 585357702 Status: stable, progressing Assessment/Plan ot pt diet bp pain control cbc bmp am dc plan Subjective Constitutional: Reports: weakness Allergies: Coded Allergies: No Known Allergies (Unverified , 08/06/17) All Systems: reviewed and negative except above Subjective calm in bed tired Objective Last 24 Hour Vital Signs Date Time Temp Pulse Resp B/P (MAP) Pulse Ox O2 Delivery O2 Flow Rate FiO2 08/09/17 08:52 154/76 08/09/17 08:04 78 20 Room Air 21 08/09/17 08:00 98.0 73 22 154/76 92 Room Air 98.0 08/09/17 08:00 76 08/09/17 04:22 97.3 73 20 105/55 95 Room Air 97.3 08/09/17 04:00 78 08/09/17 00:00 70 08/09/17 00:00 96.3 70 18 100/60 95 Room Air 96.3 08/08/17 20:00 97.9 74 18 122/70 95 Room Air 97.9 08/08/17 20:00 78 08/08/17 19:41 74 20 Room Air 21 08/08/17 16:00 98.1 68 18 128/68 94 Room Air 98.1 08/08/17 15:10 69 08/08/17 12:34 97.5 76 22 123/62 92 Room Air 97.5 Intake and Output 08/08/17 08/09/17 19:00 07:00 Intake Total 750 ml 120 ml Output Total 350 ml 700 ml Balance 400 ml -580 ml Intake Oral 750 ml 120 ml Output Urine Total 350 ml 700 ml # Voids 3 Laboratory Tests 08/09/17 03:15: White Blood Count 9.0, Red Blood Count 5.60, Hemoglobin 17.1, Hematocrit 50.4, Mean Corpuscular Volume 90, Mean Corpuscular Hemoglobin 30.6, Mean Corpuscular Hemoglobin Concent 34.0, Red Cell Distribution Width 12.0, Platelet Count 165, Mean Platelet Volume 10.3H, Neutrophils (%) (Auto) 49.3, Lymphocytes (%) (Auto) 34.0, Monocytes (%) (Auto) 12.0H, Eosinophils (%) (Auto) 3.7H, Basophils (%) ( Auto) 0.9, Sodium Level 139, Potassium Level 4.1, Chloride Level 104, Carbon Dioxide Level 32, Anion Gap 3L, Blood Urea Nitrogen 22H, Creatinine 1.0, Estimat Glomerular Filtration Rate > 60, Glucose Level 112H, Calcium Level 9.2, Troponin I 0.000 Height (Feet): 5 Height (Inches): 11.00 Weight (Pounds): 298 General Appearance: lethargic EENT: normal ENT inspection Neck: normal alignment Cardiovascular: normal peripheral pulses, normal rate, regular rhythm Respiratory/Chest: chest wall non-tender, decreased breath sounds Abdomen: normal bowel sounds, non tender, soft Extremities: normal inspection Edema: 1+ Arm (L), 1+ Arm (R), 1+ Leg (L), 1+ Leg (R), 1+ Pedal (L), 1+ Pedal ( R), 1+ Generalized Edema: trace edema Neurologic: responsive, motor weakness Skin: normal pigmentation, warm/dry Rocael Valdez DO Aug 09, 2017 11:59
--- NOTE | 2017-08-09 12:16 | Diagnostic Imaging Report ---
Indication: Dyspnea Comparison: 08/06/2017 A single view chest radiograph was obtained. Findings: Pacemaker noted. No definite infiltrate or pulmonary vascular congestion identified. The heart is enlarged. The aorta is mildly enlarged consistent with atherosclerotic vascular disease. The bones are osteopenic. Impression: No acute disease
[2017-08-09 16:00] VITALS: BP 111/57
--- NOTE | 2017-08-09 16:12 | Cardiac Electrophysiology PN ---
Assessment/Plan Assessment/Plan 1. Atypical Chest pain. Ruled out for myocardial infarction by serial cardiac enzymes. EKG is normal 2. Status post dual-chamber permanent pacemaker implantation. The patient does not know the brand of the pacemaker and neither the retirement. Will try to find the brand of the pacemaker for further interrogation. 3. Hypertension, on lisinopril 20 mg daily. 4. Hypothyroidism on Synthroid. 5. Morbid obesity. 6. Chronic obstructive pulmonary disease. 7. Schizophrenia. WILTON RN Subjective Subjective RN at bedside. No events. Couldnt get the pacer brand from [facility] either. Objective Last 24 Hour Vital Signs Date Time Temp Pulse Resp B/P (MAP) Pulse Ox O2 Delivery O2 Flow Rate FiO2 08/09/17 12:00 73 08/09/17 11:58 98.5 76 21 118/60 92 Room Air 98.5 08/09/17 08:52 154/76 08/09/17 08:04 78 20 Room Air 21 08/09/17 08:00 98.0 73 22 154/76 92 Room Air 98.0 08/09/17 08:00 76 08/09/17 04:22 97.3 73 20 105/55 95 Room Air 97.3 08/09/17 04:00 78 08/09/17 00:00 70 08/09/17 00:00 96.3 70 18 100/60 95 Room Air 96.3 08/08/17 20:00 97.9 74 18 122/70 95 Room Air 97.9 08/08/17 20:00 78 08/08/17 19:41 74 20 Room Air 21 Intake and Output 08/08/17 08/09/17 19:00 07:00 Intake Total 750 ml 120 ml Output Total 350 ml 700 ml Balance 400 ml -580 ml Intake Oral 750 ml 120 ml Output Urine Total 350 ml 700 ml # Voids 3 Laboratory Tests Test 08/09/17 03:15 White Blood Count 9.0 K/UL (4.8-10.8) Red Blood Count 5.60 M/UL (4.70-6.10) Hemoglobin 17.1 G/DL (14.2-18.0) Hematocrit 50.4 % (42.0-52.0) Mean Corpuscular Volume 90 FL (80-99) Mean Corpuscular Hemoglobin 30.6 PG (27.0-31.0) Mean Corpuscular Hemoglobin Concent 34.0 G/DL (32.0-36.0) Red Cell Distribution Width 12.0 % (11.6-14.8) Platelet Count 165 K/UL (150-450) Mean Platelet Volume 10.3 FL (6.5-10.1) H Neutrophils (%) (Auto) 49.3 % (45.0-75.0) Lymphocytes (%) (Auto) 34.0 % (20.0-45.0) Monocytes (%) (Auto) 12.0 % (1.0-10.0) H Eosinophils (%) (Auto) 3.7 % (0.0-3.0) H Basophils (%) (Auto) 0.9 % (0.0-2.0) Sodium Level 139 MMOL/L (136-145) Potassium Level 4.1 MMOL/L (3.5-5.1) Chloride Level 104 MMOL/L (98-107) Carbon Dioxide Level 32 MMOL/L (21-32) Anion Gap 3 mmol/L (5-15) L Blood Urea Nitrogen 22 mg/dL (7-18) H Creatinine 1.0 MG/DL (0.55-1.30) Estimat Glomerular Filtration Rate > 60 mL/min (>60) Glucose Level 112 MG/DL (74-106) H Calcium Level 9.2 MG/DL (8.5-10.1) Troponin I 0.000 ng/mL (0.000-0.056) Microbiology Date/Time Source Procedure Growth Status 08/06/17 22:08 Nasal Nares MRSA Culture - Final Staphylococcus Aureus - Mrsa Complete 08/06/17 22:08 Rectum VRE Culture - Final NO VANCOMYCIN RESISTANT ENTEROCOCCUS ... Complete Objective HEAD AND NECK: No JVD. LUNGS: Decreased breath sounds. CARDIOVASCULAR: Regular S1 and S2 with no gallop or murmur. The pacemaker is in left subclavian. ABDOMEN: Morbidly obese EXTREMITIES: 2+ pitting edema. Larry Willard MD Aug 09, 2017 16:12
--- NOTE | 2017-08-09 18:16 | General Progress Note ---
Assessment/Plan Problem List: (1) Hypothyroid ICD Codes: E03.9 - Hypothyroidism, unspecified SNOMED: 57419221 (2) Chest pain ICD Codes: R07.9 - Chest pain, unspecified SNOMED: 10089734, 449537483 Qualifiers: Qualified Codes: R07.9 - Chest pain, unspecified (3) Morbid obesity with BMI of 40.0-44.9, adult ICD Codes: E66.01 - Morbid (severe) obesity due to excess calories; Z68.41 - Body mass index (BMI) 40.0-44.9, adult SNOMED: 536224320, 062890990 (4) Asthma ICD Codes: J45.909 - Unspecified asthma, uncomplicated SNOMED: 461814764 Assessment/Plan continue levothyroxine 75 mcg daily repeat thyroid function in 6 weeks Subjective Allergies: Coded Allergies: No Known Allergies (Unverified , 08/06/17) All Systems: reviewed and negative except above Subjective events noted Objective Last 24 Hour Vital Signs Date Time Temp Pulse Resp B/P (MAP) Pulse Ox O2 Delivery O2 Flow Rate FiO2 08/09/17 16:00 60 08/09/17 16:00 97.4 65 19 111/57 92 Room Air 97.4 08/09/17 12:00 73 08/09/17 11:58 98.5 76 21 118/60 92 Room Air 98.5 08/09/17 08:52 154/76 08/09/17 08:04 78 20 Room Air 21 08/09/17 08:00 98.0 73 22 154/76 92 Room Air 98.0 08/09/17 08:00 76 08/09/17 04:22 97.3 73 20 105/55 95 Room Air 97.3 08/09/17 04:00 78 08/09/17 00:00 70 08/09/17 00:00 96.3 70 18 100/60 95 Room Air 96.3 08/08/17 20:00 97.9 74 18 122/70 95 Room Air 97.9 08/08/17 20:00 78 08/08/17 19:41 74 20 Room Air 21 Intake and Output 08/08/17 08/09/17 19:00 07:00 Intake Total 750 ml 120 ml Output Total 350 ml 700 ml Balance 400 ml -580 ml Intake Oral 750 ml 120 ml Output Urine Total 350 ml 700 ml # Voids 3 Laboratory Tests 08/09/17 03:15: White Blood Count 9.0, Red Blood Count 5.60, Hemoglobin 17.1, Hematocrit 50.4, Mean Corpuscular Volume 90, Mean Corpuscular Hemoglobin 30.6, Mean Corpuscular Hemoglobin Concent 34.0, Red Cell Distribution Width 12.0, Platelet Count 165, Mean Platelet Volume 10.3H, Neutrophils (%) (Auto) 49.3, Lymphocytes (%) (Auto) 34.0, Monocytes (%) (Auto) 12.0H, Eosinophils (%) (Auto) 3.7H, Basophils (%) ( Auto) 0.9, Sodium Level 139, Potassium Level 4.1, Chloride Level 104, Carbon Dioxide Level 32, Anion Gap 3L, Blood Urea Nitrogen 22H, Creatinine 1.0, Estimat Glomerular Filtration Rate > 60, Glucose Level 112H, Calcium Level 9.2, Troponin I 0.000 Height (Feet): 5 Height (Inches): 11.00 Weight (Pounds): 298 General Appearance: no apparent distress Neck: normal alignment Cardiovascular: normal rate Respiratory/Chest: decreased breath sounds Abdomen: normal bowel sounds Pelvis: normal external exam Edema: 1+ Arm (L), 1+ Arm (R), 1+ Leg (L), 1+ Leg (R), 1+ Pedal (L), 1+ Pedal ( R), 1+ Generalized Objective Current Medications Medications (Trade) Dose Ordered Sig/Aster Route PRN Reason Start Time Stop Time Status Last Admin Dose Admin Acetaminophen (Tylenol) 650 mg Q4H PRN ORAL FEVER 08/07/17 03:45 09/06/17 03:44 Albuterol/ Ipratropium (Albuterol/ Ipratropium) 3 ml Q4HRT PRN HHN Shortness of Breath 08/07/17 03:45 08/12/17 03:44 Aspirin (ASA) 162 mg DAILY ORAL 08/07/17 09:00 09/06/17 08:59 08/09/17 08:52 Benztropine Mesylate (Cogentin) 0.5 mg EVERY 12 HOURS ORAL 08/07/17 09:00 09/06/17 08:59 08/09/17 08:54 Diltiazem HCl (Cardizem) 10 mg EVERY HOUR PRN IV heart rate more than 120, 08/07/17 03:45 09/06/17 03:44 Enalaprilat (Vasotec) 2.5 mg EVERY 6 HOURS PRN IV sbp more than 160 08/07/17 03:45 09/06/17 03:44 Furosemide (Lasix) 40 mg DAILY IV 08/08/17 09:00 09/07/17 08:59 08/09/17 08:54 Gabapentin (Neurontin) 100 mg THREE TIMES A DAY ORAL 08/07/17 09:00 09/06/17 08:59 08/09/17 17:20 Heparin Sodium (Porcine) (Heparin 5000 units/ml) 5,000 units EVERY 12 HOURS SUBQ 08/07/17 09:00 09/06/17 08:59 08/09/17 08:53 Ketorolac Tromethamine (Toradol 30mg) 30 mg Q6HR PRN IV moderate pain ( 4-6) 08/07/17 03:45 08/12/17 03:44 Levothyroxine Sodium (Synthroid) 75 mcg DAILY@0630 ORAL 08/09/17 06:30 09/08/17 06:29 08/09/17 06:14 Lisinopril (Prinivil) 20 mg DAILY ORAL 08/07/17 09:00 09/06/17 08:59 08/09/17 08:52 Morphine Sulfate (Morphine Sulfate) 2 mg EVERY 4 HOURS PRN IVP severe Pain (Pain Scale 7-10) 08/07/17 03:45 08/14/17 03:44 Nitroglycerin (Ntg) 0.4 mg PRN PRN SL Prn Chest Pain 08/07/17 03:45 09/06/17 03:44 Ondansetron HCl (Zofran) 4 mg Q6H PRN IVP Nausea & Vomiting 08/07/17 03:45 09/06/17 03:44 Polyethylene Glycol (Miralax) 17 gm DAILYPRN PRN ORAL Constipation 08/07/17 03:45 09/06/17 03:44 Temazepam (Restoril) 15 mg HSPRN PRN ORAL Insomnia 08/07/17 03:45 08/14/17 03:44 Ziprasidone (Geodon) 20 mg BIDPC ORAL 08/07/17 09:00 09/06/17 08:59 08/09/17 17:20 Macario Varela MD Aug 09, 2017 18:16
[2017-08-09 20:00] VITALS: BP 133/65
[2017-08-10] VITALS: BP 114/60
[2017-08-10 04:00] VITALS: BP 103/50
[2017-08-10 05:56] LABS: BASOPHILS % (AUTO) 0.9 % (0.0-2.0); EOSINOPHILS % (AUTO) 4.1 % (0.0-3.0); HEMOGLOBIN 17.1 G/DL (14.2-18.0); MEAN CORPUSCULAR VOLUME 90 FL (80-99); MONOCYTES % (AUTO) 8.7 % (1.0-10.0); NEUTROPHILS % (AUTO) 50.3 % (45.0-75.0); PLATELET COUNT 164 K/UL (150-450); RED BLOOD COUNT 5.55 M/UL (4.70-6.10); RED CELL DISTRIBUTION WIDTH 11.8 % (11.6-14.8); WHITE BLOOD COUNT 8.4 K/UL (4.8-10.8)
[2017-08-10 06:13] LABS: ALANINE AMINOTRANSFERASE 86 U/L (12-78); ALBUMIN 2.8 G/DL (3.4-5.0); ALBUMIN/GLOBULIN RATIO 0.6 (1.0-2.7); ALKALINE PHOSPHATASE 78 U/L (46-116); ANION GAP 5 mmol/L (5-15); ASPARTATE AMINO TRANSFERASE 58 U/L (15-37); BILIRUBIN,TOTAL 0.3 MG/DL (0.2-1.0); BLOOD UREA NITROGEN 21 mg/dL (7-18); CALCIUM 8.7 MG/DL (8.5-10.1); CARBON DIOXIDE 29 MMOL/L (21-32); CHLORIDE 104 MMOL/L (98-107); CREATININE 0.8 MG/DL (0.55-1.30); PHOSPHORUS 2.8 MG/DL (2.5-4.9); POTASSIUM 3.7 MMOL/L (3.5-5.1); SODIUM 138 MMOL/L (136-145)
--- NOTE | 2017-08-10 07:03 | General Progress Note ---
Assessment/Plan Problem List: (1) Hypothyroid ICD Codes: E03.9 - Hypothyroidism, unspecified SNOMED: 72286623 (2) Chest pain ICD Codes: R07.9 - Chest pain, unspecified SNOMED: 64968331, 554056367 Qualifiers: Qualified Codes: R07.9 - Chest pain, unspecified (3) Morbid obesity with BMI of 40.0-44.9, adult ICD Codes: E66.01 - Morbid (severe) obesity due to excess calories; Z68.41 - Body mass index (BMI) 40.0-44.9, adult SNOMED: 344319090, 253448780 (4) Asthma ICD Codes: J45.909 - Unspecified asthma, uncomplicated SNOMED: 986598969 Assessment/Plan continue levothyroxine 75 mcg daily repeat thyroid function in 6 weeks Subjective Allergies: Coded Allergies: No Known Allergies (Unverified , 08/06/17) All Systems: reviewed and negative except above Subjective events noted Objective Last 24 Hour Vital Signs Date Time Temp Pulse Resp B/P (MAP) Pulse Ox O2 Delivery O2 Flow Rate FiO2 08/10/17 04:00 61 08/10/17 04:00 98.1 72 20 103/50 95 Room Air 98.1 08/10/17 00:00 97.8 64 19 114/60 95 Room Air 97.8 08/10/17 00:00 63 08/09/17 20:00 70 08/09/17 20:00 97.3 62 19 133/65 95 Room Air 97.3 08/09/17 19:56 71 20 Room Air 21 08/09/17 16:00 60 08/09/17 16:00 97.4 65 19 111/57 92 Room Air 97.4 08/09/17 12:00 73 08/09/17 11:58 98.5 76 21 118/60 92 Room Air 98.5 08/09/17 08:52 154/76 08/09/17 08:04 78 20 Room Air 21 08/09/17 08:00 98.0 73 22 154/76 92 Room Air 98.0 08/09/17 08:00 76 Intake and Output 08/09/17 08/10/17 19:00 07:00 Intake Total 600 ml 400 ml Output Total 1120 ml 750 ml Balance -520 ml -350 ml Intake Oral 600 ml 400 ml Output Urine Total 1120 ml 750 ml Laboratory Tests 08/10/17 03:55: White Blood Count 8.4, Red Blood Count 5.55, Hemoglobin 17.1, Hematocrit 50.0, Mean Corpuscular Volume 90, Mean Corpuscular Hemoglobin 30.9, Mean Corpuscular Hemoglobin Concent 34.3, Red Cell Distribution Width 11.8, Platelet Count 164, Mean Platelet Volume 9.1, Neutrophils (%) (Auto) 50.3, Lymphocytes (%) (Auto) 36.0, Monocytes (%) (Auto) 8.7, Eosinophils (%) (Auto) 4.1H, Basophils (%) (Auto ) 0.9, Sodium Level 138, Potassium Level 3.7, Chloride Level 104, Carbon Dioxide Level 29, Anion Gap 5, Blood Urea Nitrogen 21H, Creatinine 0.8, Estimat Glomerular Filtration Rate > 60, Glucose Level 108H, Calcium Level 8.7, Phosphorus Level 2.8, Magnesium Level 2.1, Total Bilirubin 0.3, Aspartate Amino Transf (AST/SGOT) 58H, Alanine Aminotransferase (ALT/SGPT) 86H, Alkaline Phosphatase 78, Total Protein 7.4, Albumin 2.8L, Globulin 4.6, Albumin/Globulin Ratio 0.6L Height (Feet): 5 Height (Inches): 11.00 Weight (Pounds): 300 General Appearance: no apparent distress Neck: normal alignment Cardiovascular: normal rate Respiratory/Chest: decreased breath sounds Abdomen: normal bowel sounds Pelvis: normal external exam Objective Current Medications Medications (Trade) Dose Ordered Sig/Aster Route PRN Reason Start Time Stop Time Status Last Admin Dose Admin Acetaminophen (Tylenol) 650 mg Q4H PRN ORAL FEVER 08/07/17 03:45 09/06/17 03:44 Albuterol/ Ipratropium (Albuterol/ Ipratropium) 3 ml Q4HRT PRN HHN Shortness of Breath 08/07/17 03:45 08/12/17 03:44 Aspirin (ASA) 162 mg DAILY ORAL 08/07/17 09:00 09/06/17 08:59 08/09/17 08:52 Benztropine Mesylate (Cogentin) 0.5 mg EVERY 12 HOURS ORAL 08/07/17 09:00 09/06/17 08:59 08/09/17 20:53 Diltiazem HCl (Cardizem) 10 mg EVERY HOUR PRN IV heart rate more than 120, 08/07/17 03:45 09/06/17 03:44 Enalaprilat (Vasotec) 2.5 mg EVERY 6 HOURS PRN IV sbp more than 160 08/07/17 03:45 09/06/17 03:44 Furosemide (Lasix) 40 mg DAILY IV 08/08/17 09:00 09/07/17 08:59 08/09/17 08:54 Gabapentin (Neurontin) 100 mg THREE TIMES A DAY ORAL 08/07/17 09:00 09/06/17 08:59 08/09/17 17:20 Heparin Sodium (Porcine) (Heparin 5000 units/ml) 5,000 units EVERY 12 HOURS SUBQ 08/07/17 09:00 09/06/17 08:59 08/09/17 20:54 Ketorolac Tromethamine (Toradol 30mg) 30 mg Q6HR PRN IV moderate pain ( 4-6) 08/07/17 03:45 08/12/17 03:44 Levothyroxine Sodium (Synthroid) 75 mcg DAILY@0630 ORAL 08/09/17 06:30 09/08/17 06:29 08/10/17 06:13 Lisinopril (Prinivil) 20 mg DAILY ORAL 08/07/17 09:00 09/06/17 08:59 08/09/17 08:52 Morphine Sulfate (Morphine Sulfate) 2 mg EVERY 4 HOURS PRN IVP severe Pain (Pain Scale 7-10) 08/07/17 03:45 08/14/17 03:44 Nitroglycerin (Ntg) 0.4 mg PRN PRN SL Prn Chest Pain 08/07/17 03:45 09/06/17 03:44 Ondansetron HCl (Zofran) 4 mg Q6H PRN IVP Nausea & Vomiting 08/07/17 03:45 09/06/17 03:44 Polyethylene Glycol (Miralax) 17 gm DAILYPRN PRN ORAL Constipation 08/07/17 03:45 09/06/17 03:44 Temazepam (Restoril) 15 mg HSPRN PRN ORAL Insomnia 08/07/17 03:45 08/14/17 03:44 Ziprasidone (Geodon) 20 mg BIDPC ORAL 08/07/17 09:00 09/06/17 08:59 08/09/17 17:20 Macario Varela MD Aug 10, 2017 07:03
[2017-08-10 08:00] VITALS: BP 142/76
--- NOTE | 2017-08-10 09:00 | Progress Note ---
DATE: 08/10/2017 SUBJECTIVE: This is a 62-year-old male patient with acute coronary syndrome. He has altered mental status, confused, and cognition has declined below baseline. That is why, his attending physician has requested daily psychiatric consultation. MENTAL STATUS EXAMINATION: This is a 62-year-old male. Appearance is disheveled. Attitude, irritable and agitated. Affect, guarded and restricted. Intellect poor. Mood, depressed and anxious. Motor activity, psychomotor agitation. Attention span is poor. Orientation x2. Speech is low volume and slurred. Thought process, disorganized. Thought content, paranoid delusions. Insight and judgment is poor. DIAGNOSIS: Major depression with psychotic features. PLAN: Treat with medication regimen to stabilize his mood, prevent any further decline in his cognition. An 18 to 20 minutes of supportive psychotherapy provided. Chart reviewed. Discussed with staff. Seen and assessed in his bedside. Tran Batista M.D. DR: RAMSES JOB#: [id number] CC:
--- NOTE | 2017-08-10 09:11 | General Progress Note ---
Assessment/Plan Problem List: (1) Asthma ICD Codes: J45.909 - Unspecified asthma, uncomplicated SNOMED: 547551863 (2) Chest pain ICD Codes: R07.9 - Chest pain, unspecified SNOMED: 79666451, 477942937 Qualifiers: Qualified Codes: R07.9 - Chest pain, unspecified (3) Morbid obesity with BMI of 40.0-44.9, adult ICD Codes: E66.01 - Morbid (severe) obesity due to excess calories; Z68.41 - Body mass index (BMI) 40.0-44.9, adult SNOMED: 857175864, 543519030 (4) Acute coronary syndrome ICD Codes: I24.9 - Acute ischemic heart disease, unspecified SNOMED: 074732189 Status: stable, progressing Assessment/Plan ot pt diet bp pain control dc if clear Subjective Constitutional: Reports: weakness Allergies: Coded Allergies: No Known Allergies (Unverified , 08/06/17) All Systems: reviewed and negative except above Subjective calm in bed tired Objective Last 24 Hour Vital Signs Date Time Temp Pulse Resp B/P (MAP) Pulse Ox O2 Delivery O2 Flow Rate FiO2 08/10/17 08:00 74 08/10/17 08:00 97.7 75 18 142/76 92 Room Air 97.7 08/10/17 07:08 73 20 Room Air 21 08/10/17 04:00 61 08/10/17 04:00 98.1 72 20 103/50 95 Room Air 98.1 08/10/17 00:00 97.8 64 19 114/60 95 Room Air 97.8 08/10/17 00:00 63 08/09/17 20:00 70 08/09/17 20:00 97.3 62 19 133/65 95 Room Air 97.3 08/09/17 19:56 71 20 Room Air 21 08/09/17 16:00 60 08/09/17 16:00 97.4 65 19 111/57 92 Room Air 97.4 08/09/17 12:00 73 08/09/17 11:58 98.5 76 21 118/60 92 Room Air 98.5 Intake and Output 08/09/17 08/10/17 19:00 07:00 Intake Total 600 ml 400 ml Output Total 1120 ml 750 ml Balance -520 ml -350 ml Intake Oral 600 ml 400 ml Output Urine Total 1120 ml 750 ml Laboratory Tests 08/10/17 03:55: White Blood Count 8.4, Red Blood Count 5.55, Hemoglobin 17.1, Hematocrit 50.0, Mean Corpuscular Volume 90, Mean Corpuscular Hemoglobin 30.9, Mean Corpuscular Hemoglobin Concent 34.3, Red Cell Distribution Width 11.8, Platelet Count 164, Mean Platelet Volume 9.1, Neutrophils (%) (Auto) 50.3, Lymphocytes (%) (Auto) 36.0, Monocytes (%) (Auto) 8.7, Eosinophils (%) (Auto) 4.1H, Basophils (%) (Auto ) 0.9, Sodium Level 138, Potassium Level 3.7, Chloride Level 104, Carbon Dioxide Level 29, Anion Gap 5, Blood Urea Nitrogen 21H, Creatinine 0.8, Estimat Glomerular Filtration Rate > 60, Glucose Level 108H, Calcium Level 8.7, Phosphorus Level 2.8, Magnesium Level 2.1, Total Bilirubin 0.3, Aspartate Amino Transf (AST/SGOT) 58H, Alanine Aminotransferase (ALT/SGPT) 86H, Alkaline Phosphatase 78, Total Protein 7.4, Albumin 2.8L, Globulin 4.6, Albumin/Globulin Ratio 0.6L Height (Feet): 5 Height (Inches): 11.00 Weight (Pounds): 300 General Appearance: lethargic EENT: normal ENT inspection Neck: normal alignment Cardiovascular: normal peripheral pulses, normal rate, regular rhythm Respiratory/Chest: chest wall non-tender, lungs clear, normal breath sounds Abdomen: normal bowel sounds, non tender, soft Extremities: normal inspection Edema: 1+ Arm (L), 1+ Arm (R), 1+ Leg (L), 1+ Leg (R), 1+ Pedal (L), 1+ Pedal ( R), 1+ Generalized Edema: trace edema Neurologic: responsive, motor weakness Skin: normal pigmentation, warm/dry Rocael Valdez DO Aug 10, 2017 09:11
[2017-08-10] MEDS: Benztropine 1mg tab ORAL SCH (09:26)
[2017-08-10] MEDS: Aspirin Baby 81mg ORAL SCH (09:27)
[2017-08-10] MEDS: Ziprasidone 20mg cap ORAL SCH ×2 (09:27→17:17)
[2017-08-10] MEDS: Lisinopril 20mg tab ORAL SCH (09:27)
[2017-08-10] MEDS: Heparin 5000 units/ml inj SUBQ SCH (09:28)
--- NOTE | 2017-08-10 10:45 | Pulmonology Progress Note ---
Assessment/Plan Problems: (1) Chest pain (2) Asthma (3) Acute coronary syndrome (4) Morbid obesity with BMI of 40.0-44.9, adult Assessment/Plan respiratory treatment improving titrate fio2 to sat of 92% check sputum rule out [place], serial ekg, and troponin were negative. monitor BP dvt prophylaxis. dc planning dc All medications and treatment were reviewed. Subjective ROS Limited/Unobtainable: No Constitutional: Reports: no symptoms HEENT: Repors: no symptoms Respiratory: Reports: no symptoms Allergies: Coded Allergies: No Known Allergies (Unverified , 08/06/17) Objective Last 24 Hour Vital Signs Date Time Temp Pulse Resp B/P (MAP) Pulse Ox O2 Delivery O2 Flow Rate FiO2 08/10/17 09:27 142/76 08/10/17 08:00 74 08/10/17 08:00 97.7 75 18 142/76 92 Room Air 97.7 08/10/17 07:08 73 20 Room Air 21 08/10/17 04:00 61 08/10/17 04:00 98.1 72 20 103/50 95 Room Air 98.1 08/10/17 00:00 97.8 64 19 114/60 95 Room Air 97.8 08/10/17 00:00 63 08/09/17 20:00 70 08/09/17 20:00 97.3 62 19 133/65 95 Room Air 97.3 08/09/17 19:56 71 20 Room Air 21 08/09/17 16:00 60 08/09/17 16:00 97.4 65 19 111/57 92 Room Air 97.4 08/09/17 12:00 73 08/09/17 11:58 98.5 76 21 118/60 92 Room Air 98.5 Intake and Output 08/09/17 08/10/17 19:00 07:00 Intake Total 600 ml 400 ml Output Total 1120 ml 750 ml Balance -520 ml -350 ml Intake Oral 600 ml 400 ml Output Urine Total 1120 ml 750 ml General Appearance: WD/WN HEENT: normocephalic, atraumatic Respiratory/Chest: chest wall non-tender, lungs clear Cardiovascular: normal peripheral pulses, normal rate Abdomen: normal bowel sounds, soft, non tender Genitourinary: normal external genitalia Extremities: no cyanosis Neurologic/Psychiatric: no motor/sensory deficits Lymphatic: no neck adenopathy Laboratory Tests 08/10/17 03:55: White Blood Count 8.4, Red Blood Count 5.55, Hemoglobin 17.1, Hematocrit 50.0, Mean Corpuscular Volume 90, Mean Corpuscular Hemoglobin 30.9, Mean Corpuscular Hemoglobin Concent 34.3, Red Cell Distribution Width 11.8, Platelet Count 164, Mean Platelet Volume 9.1, Neutrophils (%) (Auto) 50.3, Lymphocytes (%) (Auto) 36.0, Monocytes (%) (Auto) 8.7, Eosinophils (%) (Auto) 4.1H, Basophils (%) (Auto ) 0.9, Sodium Level 138, Potassium Level 3.7, Chloride Level 104, Carbon Dioxide Level 29, Anion Gap 5, Blood Urea Nitrogen 21H, Creatinine 0.8, Estimat Glomerular Filtration Rate > 60, Glucose Level 108H, Calcium Level 8.7, Phosphorus Level 2.8, Magnesium Level 2.1, Total Bilirubin 0.3, Aspartate Amino Transf (AST/SGOT) 58H, Alanine Aminotransferase (ALT/SGPT) 86H, Alkaline Phosphatase 78, Total Protein 7.4, Albumin 2.8L, Globulin 4.6, Albumin/Globulin Ratio 0.6L Current Medications Medications (Trade) Dose Ordered Sig/Aster Route PRN Reason Start Time Stop Time Status Last Admin Dose Admin Acetaminophen (Tylenol) 650 mg Q4H PRN ORAL FEVER 08/07/17 03:45 09/06/17 03:44 Albuterol/ Ipratropium (Albuterol/ Ipratropium) 3 ml Q4HRT PRN HHN Shortness of Breath 08/07/17 03:45 08/12/17 03:44 Aspirin (ASA) 162 mg DAILY ORAL 08/07/17 09:00 09/06/17 08:59 08/10/17 09:27 Benztropine Mesylate (Cogentin) 0.5 mg EVERY 12 HOURS ORAL 08/07/17 09:00 09/06/17 08:59 08/10/17 09:26 Diltiazem HCl (Cardizem) 10 mg EVERY HOUR PRN IV heart rate more than 120, 08/07/17 03:45 09/06/17 03:44 Enalaprilat (Vasotec) 2.5 mg EVERY 6 HOURS PRN IV sbp more than 160 08/07/17 03:45 09/06/17 03:44 Furosemide (Lasix) 40 mg DAILY IV 08/08/17 09:00 09/07/17 08:59 08/10/17 09:28 Gabapentin (Neurontin) 100 mg THREE TIMES A DAY ORAL 08/07/17 09:00 09/06/17 08:59 08/10/17 09:27 Heparin Sodium (Porcine) (Heparin 5000 units/ml) 5,000 units EVERY 12 HOURS SUBQ 08/07/17 09:00 09/06/17 08:59 08/10/17 09:28 Ketorolac Tromethamine (Toradol 30mg) 30 mg Q6HR PRN IV moderate pain ( 4-6) 08/07/17 03:45 08/12/17 03:44 Levothyroxine Sodium (Synthroid) 75 mcg DAILY@0630 ORAL 08/09/17 06:30 09/08/17 06:29 08/10/17 06:13 Lisinopril (Prinivil) 20 mg DAILY ORAL 08/07/17 09:00 09/06/17 08:59 08/10/17 09:27 Morphine Sulfate (Morphine Sulfate) 2 mg EVERY 4 HOURS PRN IVP severe Pain (Pain Scale 7-10) 08/07/17 03:45 08/14/17 03:44 Nitroglycerin (Ntg) 0.4 mg PRN PRN SL Prn Chest Pain 08/07/17 03:45 09/06/17 03:44 Ondansetron HCl (Zofran) 4 mg Q6H PRN IVP Nausea & Vomiting 08/07/17 03:45 09/06/17 03:44 Polyethylene Glycol (Miralax) 17 gm DAILYPRN PRN ORAL Constipation 08/07/17 03:45 09/06/17 03:44 Temazepam (Restoril) 15 mg HSPRN PRN ORAL Insomnia 08/07/17 03:45 08/14/17 03:44 Ziprasidone (Geodon) 20 mg BIDPC ORAL 08/07/17 09:00 09/06/17 08:59 08/10/17 09:27 Nicolas Brady MD Aug 10, 2017 10:45
[2017-08-10 12:00] VITALS: BP 151/73
[2017-08-10 16:00] VITALS: BP 138/76
--- NOTE | 2017-08-10 17:03 | Cardiac Electrophysiology PN ---
Assessment/Plan Assessment/Plan 1. Atypical Chest pain. Ruled out for myocardial infarction by serial cardiac enzymes. EKG is normal 2. Status post dual-chamber Dung permanent pacemaker implantation, interrogation showed Nl Fx. 3. Hypertension, on lisinopril 20 mg daily. 4. Hypothyroidism on Synthroid. 5. Morbid obesity. 6. Chronic obstructive pulmonary disease. 7. Schizophrenia. DW RN Subjective Subjective RN at bedside. No events. Pacer was found to be Dung and interrogated. Objective Last 24 Hour Vital Signs Date Time Temp Pulse Resp B/P (MAP) Pulse Ox O2 Delivery O2 Flow Rate FiO2 08/10/17 16:00 63 08/10/17 12:00 97.9 76 19 151/73 92 Room Air 97.9 08/10/17 12:00 75 08/10/17 09:27 142/76 08/10/17 08:00 74 08/10/17 08:00 97.7 75 18 142/76 92 Room Air 97.7 08/10/17 07:08 73 20 Room Air 21 08/10/17 04:00 61 08/10/17 04:00 98.1 72 20 103/50 95 Room Air 98.1 08/10/17 00:00 97.8 64 19 114/60 95 Room Air 97.8 08/10/17 00:00 63 08/09/17 20:00 70 08/09/17 20:00 97.3 62 19 133/65 95 Room Air 97.3 08/09/17 19:56 71 20 Room Air 21 Intake and Output 08/09/17 08/10/17 19:00 07:00 Intake Total 600 ml 400 ml Output Total 1120 ml 750 ml Balance -520 ml -350 ml Intake Oral 600 ml 400 ml Output Urine Total 1120 ml 750 ml Laboratory Tests Test 08/10/17 03:55 White Blood Count 8.4 K/UL (4.8-10.8) Red Blood Count 5.55 M/UL (4.70-6.10) Hemoglobin 17.1 G/DL (14.2-18.0) Hematocrit 50.0 % (42.0-52.0) Mean Corpuscular Volume 90 FL (80-99) Mean Corpuscular Hemoglobin 30.9 PG (27.0-31.0) Mean Corpuscular Hemoglobin Concent 34.3 G/DL (32.0-36.0) Red Cell Distribution Width 11.8 % (11.6-14.8) Platelet Count 164 K/UL (150-450) Mean Platelet Volume 9.1 FL (6.5-10.1) Neutrophils (%) (Auto) 50.3 % (45.0-75.0) Lymphocytes (%) (Auto) 36.0 % (20.0-45.0) Monocytes (%) (Auto) 8.7 % (1.0-10.0) Eosinophils (%) (Auto) 4.1 % (0.0-3.0) H Basophils (%) (Auto) 0.9 % (0.0-2.0) Sodium Level 138 MMOL/L (136-145) Potassium Level 3.7 MMOL/L (3.5-5.1) Chloride Level 104 MMOL/L (98-107) Carbon Dioxide Level 29 MMOL/L (21-32) Anion Gap 5 mmol/L (5-15) Blood Urea Nitrogen 21 mg/dL (7-18) H Creatinine 0.8 MG/DL (0.55-1.30) Estimat Glomerular Filtration Rate > 60 mL/min (>60) Glucose Level 108 MG/DL (74-106) H Calcium Level 8.7 MG/DL (8.5-10.1) Phosphorus Level 2.8 MG/DL (2.5-4.9) Magnesium Level 2.1 MG/DL (1.8-2.4) Total Bilirubin 0.3 MG/DL (0.2-1.0) Aspartate Amino Transf (AST/SGOT) 58 U/L (15-37) H Alanine Aminotransferase (ALT/SGPT) 86 U/L (12-78) H Alkaline Phosphatase 78 U/L (46-116) Total Protein 7.4 G/DL (6.4-8.2) Albumin 2.8 G/DL (3.4-5.0) L Globulin 4.6 g/dL Albumin/Globulin Ratio 0.6 (1.0-2.7) L Objective HEAD AND NECK: No JVD. LUNGS: Decreased breath sounds. CARDIOVASCULAR: Regular S1 and S2 with no gallop or murmur. The pacemaker is in left subclavian. ABDOMEN: Morbidly obese EXTREMITIES: 2+ pitting edema. Larry Willard MD Aug 10, 2017 17:03
--- NOTE | 2017-08-13 08:41 | Discharge Summary ---
Discharge Summary Discharge Summary _ DATE OF ADMISSION: 08/06/2017 DATE OF DISCHARGE: 08/10/2017 REASON FOR ADMISSION: 62 years old male with past medical history of hypertension, COPD/asthma , permanent pacemaker, liver disease, hypothyroidism, schizophrenia, morbid obesity, presented with complaint of chest pain. Chest pain was described as nonexertional lasting for few hours. No shortness of breath, no dizziness, no palpitations. No fever, no chills. Sleep helped to alleviate pain. Paramedics gave nitroglycerin and aspirin with some relief. Upon evaluation ,vital signs were stable except elevated blood pressure- 165/87. Troponin was negative. Pro BNP 35. EKG revealed normal sinus rhythm, no acute ischemic changes. Chest x-ray revealed no acute cardiopulmonary pathology. Stable renal parameters and electrolytes. No leukocytosis. Stable hemoglobin and hematocrit. AST 48 ALT 84. Patient admitted for further workup with diagnosis of chest pain, rule out acute coronary syndrome, pacemaker, hypertension, morbid obesity, hypothyroidism , schizophrenia, transaminitis CONSULTANTS: dry chain operator Dr. Willard pulmonary Dr. Brady psychiatrist Dr. Batista regional service manager Dr. Varela [facility] COURSE: Patient initially admitted to [facility]. Serial troponin were negative. EKG revealed paced rhythm. Patient had no further cardiac complains. Wet Process Miller Head Assistant closely followed. Per dry chain operator chest pain was atypical. Pacemaker interrogation showed normal functioning. Patient was ruled out for acute coronary syndrome. Patient started on aspirin and nitroglycerin. Echocardiogram revealed preserved ejection fraction 55-60%. Blood pressure management was managed with CATRACHO inhibitor and remained stable. Lipid panel was within normal limits. TSH was elevated, Synthroid dose was increased. Milk Tanker Driver seen patient and recommended to repeat thyroid function tests in 6 months . DVT prophylaxis provided. Supplemental oxygen provided as needed to keep pulse oximetry above 92%. Pulmonary toilet was on standby as needed . No evidence of asthma exacerbation. Psychiatrist seen and evaluated patient , diagnosed patient with a major depression with psychotic features. Psychiatric medication regimen optimized as per psychiatrist . Supportive care provided . bowel regimen provided instituted . LFT were closely monitored , noted mild elevation likely secondary to liver disease , no abdominal pain . No further workup needed at this time , continue close [facility]. Patient stabilized and was ready for discharge back to [facility] facility for continuation of care FINAL DIAGNOSES: Atypical chest pain Status post permanent dual-chamber pacemaker implantation Hypertension Morbid obesity Hypothyroidism with elevated TSH COPD/asthma Major depression with psychotic features Transaminitis DISCHARGE MEDICATIONS: See Medication Reconciliation list. DISCHARGE INSTRUCTIONS: Patient was discharged to [facility] facility follow-up with medical doctor at the facility Lindy Bañuelos NP Aug 13, 2017 08:41
== END 2017-08-10 20:00 | DRG 313 ==
LOC: EDBD 20:28 → EMR 21:10 → 2W 21:43 → EDBEDREQ 22:48 → 2W 23:08
DX: R07.89 Other chest pain (principal); F31.81 Bipolar II disorder; F32.3 Major depressive disorder, single episode, severe with psychotic features; Z68.41 Body mass index [BMI] 40.0-44.9, adult; J45.909 Unspecified asthma, uncomplicated; E66.01 Morbid (severe) obesity due to excess calories; I10 Essential (primary) hypertension; F20.9 Schizophrenia, unspecified; Z95.0 Presence of cardiac pacemaker; E03.9 Hypothyroidism, unspecified; J44.9 Chronic obstructive pulmonary disease, unspecified; R74.0 Nonspecific elevation of levels of transaminase and lactic acid dehydrogenase [LDH]
CPT/HCPCS: 36415; 71045; 80048; 80053; 80061; 83735; 83880; 84100; 84443; 84484; 85025; 85610; 85730; 86140; 87081; 93005; 93306; 94664; 99285

== ENCOUNTER 2018-03-02 20:47 | Inpatient (IN) | payer MEDICARE, OTHER ==
[~2018-03-02] VITALS: Ht 180.3 cm; Wt 131.5 kg
[~2018-03-02 20:47] MED LIST: ACETAMINOPHEN325 M1 ORAL; ALBUTEROL2.5 MG/3 M INH; BENZTROPINE ME0.5 MG PO; DULCOLAX10 MG RC; FLEET ENEMA133 ML RECTAL; GABAPENTIN100 MG ORAL; GABAPENTIN300 MG ORAL; LATUDA40 MG PO; LISINOPRIL20 MG ORAL; MILK OF MA400 MG/51 ORAL; POTASSIUM CHLO20 ME1 ORAL; SYNTHROID25 MCG ORAL
[2018-03-02] MEDS ORDERED: Nitroglycerin 2% oint pkt TOPIC ONE (21:00)
--- NOTE | 2018-03-02 21:00 | NUR ---
ED Nurse Note: RECIEVED PT BIBA FROM SNF WITH C/O CHEST PAIN, PT WAS MEDICATED WITH NITRO MARINE SUPERINTENDENT AND IS PAIN FREE UPON ARRIVAL, ALSO HAS PATENT IV LINE IN RIGHT FOREARM, PT DENIES ANY OTHER COMPLAITNS OR DISCOMFORTS, PT GOWNED AND PLCED ON CARDIAC MONITORING, WILL REUSME CARE ORDERED AND CONTINUE TO CLOSELY MONITOR.
--- NOTE | 2018-03-02 21:01 | Emergency Room Report ---
History of Present Illness General Chief Complaint: Chest Pain Source: Patient, EMS Present Illness HPI Patient presents with chest pain. It started at rest. He reports it left sided and radiates to his shoulder. He was given 3 nitroglycerin at the facility where he stays. Paramedics gave him aspirin. He states the pain is gone at this time. Patient has a history of a pacemaker. He's uncertain if he's had cardiac catheterization in the past. The patient is under a lot of stress where he lives. He states there is a lot of pressure and he is not care for further psychiatric problems very well. He denies suicidal ideation. The patient has swelling in his legs and is not sure if he's taking a water pill. No fevers, chills, palpitations, nausea, vomiting, diarrhea, dysuria, abdominal pain, shortness of breath, cough, depression, visual changes, headache. Allergies: Coded Allergies: No Known Allergies (Unverified , 08/06/17) Patient History Past Medical History: see triage record Past Surgical History: pacemaker, other - Left hip Social History: Reports: smoking Social History Narrative [id number] Reviewed Nursing Documentation: PMH: Agreed; PSxH: Agreed Nursing Documentation-PMH Hx Cardiac Problems: Yes - CAD Hx Hypertension: Yes Hx Pacemaker: Yes Hx Asthma: No - Bronchitis Hx COPD: Yes Hx Cancer: No Hx Gastrointestinal Problems: Yes - Inflammatory Liver Disease History Of Psychiatric Problem: Yes - Schizophrenia Hx Neurological Problems: Yes - Artifical left Hip Joint, Muscle Weakness, Localized edema, Gout Review of Systems All Other Systems: negative except mentioned in HPI Physical Exam Vital Signs Date Time Temp Pulse Resp B/P (MAP) Pulse Ox O2 Delivery O2 Flow Rate FiO2 03/02/18 20:45 98.4 80 16 140/71 100 Room Air Sp02 EP Interpretation: reviewed, normal General Appearance: alert, GCS 15, obese Head: normocephalic Eyes: bilateral eye normal inspection, bilateral eye PERRL ENT: moist mucus membranes Neck: supple Respiratory: chest non-tender, lungs clear, normal breath sounds Cardiovascular #1: regular rate, rhythm, edema - Brawny bilateral lower legs Cardiovascular #2: 2+ radial (R) Gastrointestinal: normal inspection, normal bowel sounds, non tender, no mass, non-distended Musculoskeletal: back normal, gait/station normal, normal range of motion, no calf tenderness, Melissa's Sign negative Neurologic: alert, oriented x3, grossly normal Psychiatric: mood/affect normal, no suicidal/homicidal ideation, anxious Skin: normal inspection, warm/dry, other - Minimal erythema of the lower extremities Medical Decision Making Diagnostic Impression: Primary Impression: Acute coronary syndrome Additional Impressions: Bipolar depression Schizophrenia Qualified Codes: F20.9 - Schizophrenia, unspecified Bilateral leg edema ER Course Patient presents with chest pain. Differential includes acute myocardial infarction, acute coronary syndrome, chest wall pain, pleurisy amongst others. He will be evaluated with EKG, chest x-ray and labs. Nitroglycerin will be applied to his chest. He is pain-free right now. Due to risk factors and age the patient will need hernia. Observation. EKG with paced rhythm normal sinus rate 79 no acute changes. CXR with pacer. Labs with initial trop neg. Elevated WBC. Patient remains pain-free. He still needs to be observed for acute coronary syndrome. Is admitted to telemetry under the care of Dr. Rocael Valdez. Social service consult is entered. Laboratory Tests Test 03/02/18 21:00 03/03/18 00:40 03/03/18 08:00 White Blood Count 12.2 K/UL (4.8-10.8) H Red Blood Count 5.36 M/UL (4.70-6.10) Hemoglobin 16.3 G/DL (14.2-18.0) Hematocrit 48.9 % (42.0-52.0) Mean Corpuscular Volume 91 FL (80-99) Mean Corpuscular Hemoglobin 30.5 PG (27.0-31.0) Mean Corpuscular Hemoglobin Concent 33.4 G/DL (32.0-36.0) Red Cell Distribution Width 11.9 % (11.6-14.8) Platelet Count 179 K/UL (150-450) Mean Platelet Volume 9.9 FL (6.5-10.1) Neutrophils (%) (Auto) 71.6 % (45.0-75.0) Lymphocytes (%) (Auto) 18.4 % (20.0-45.0) L Monocytes (%) (Auto) 8.1 % (1.0-10.0) Eosinophils (%) (Auto) 1.0 % (0.0-3.0) Basophils (%) (Auto) 0.9 % (0.0-2.0) Prothrombin Time 10.7 SEC (9.30-11.50) Prothrombin Time INR 1.0 (0.9-1.1) PTT 27 SEC (23-33) Sodium Level 141 MMOL/L (136-145) Potassium Level 4.2 MMOL/L (3.5-5.1) Chloride Level 105 MMOL/L (98-107) Carbon Dioxide Level 30 MMOL/L (21-32) Anion Gap 6 mmol/L (5-15) Blood Urea Nitrogen 21 mg/dL (7-18) H Creatinine 0.8 MG/DL (0.55-1.30) Estimate Glomerular Filtration Rate > 60 mL/min (>60) Glucose Level 102 MG/DL (74-106) Calcium Level 9.4 MG/DL (8.5-10.1) Total Bilirubin 0.3 MG/DL (0.2-1.0) Aspartate Amino Transferase (AST) 38 U/L (15-37) H Alanine Aminotransferase (ALT) 59 U/L (12-78) Alkaline Phosphatase 89 U/L (46-116) Total Creatine Kinase 139 U/L (26-308) Troponin I 0.010 ng/mL (0.000-0.056) 0.018 ng/mL (0.000-0.056) Pro-B-Type Natriuretic Peptide 70 pg/mL (0-125) Total Protein 7.5 G/DL (6.4-8.2) Albumin 3.1 G/DL (3.4-5.0) L Globulin 4.4 g/dL Albumin/Globulin Ratio 0.7 (1.0-2.7) L Urine Color Yellow Urine Appearance Clear Urine pH 5 (4.5-8.0) Urine Specific [place] 1.025 (1.005-1.035) Urine Protein 2+ (NEGATIVE) H Urine Glucose (UA) Negative (NEGATIVE) Urine Ketones Negative (NEGATIVE) Urine Blood Negative (NEGATIVE) Urine Nitrite Negative (NEGATIVE) Urine Bilirubin Negative (NEGATIVE) Urine Urobilinogen 1 MG/DL (0.0-1.0) H Urine Leukocyte Esterase 1+ (NEGATIVE) H Urine RBC 0-2 /HPF (0 - 0) H Urine WBC 2-4 /HPF (0 - 0) Urine Squamous Epithelial Cells None /LPF (NONE/OCC) Urine Bacteria Few /HPF (NONE) Urine Opiates Screen Negative (NEGATIVE) Urine Barbiturates Screen Negative (NEGATIVE) Phencyclidine (PCP) Screen Negative (NEGATIVE) Urine Amphetamines Screen Negative (NEGATIVE) Urine Benzodiazepines Screen Negative (NEGATIVE) Urine Cocaine Screen Negative (NEGATIVE) Urine Marijuana (THC) Screen Negative (NEGATIVE) EKG Diagnostic Results Rate: normal Rhythm: other - pased ST Segments: no acute changes Rhythm Strip Diag. Results EP Interpretation: yes Rhythm: no PVC's, no ectopy, other - Paced Chest X-Ray Diagnostic Results Chest X-Ray Diagnostic Results : Chest X-Ray Ordered: Yes # of Views/Limited/Complete: 1 View Indication: Chest Pain EP Interpretation: Yes Interpretation: no consolidation, no effusion, no pneumothorax, other - pacer Impression: Other Electronically Signed by: Electronically signed by Magan Faria MD Last Vital Signs Date Time Temp Pulse Resp B/P (MAP) Pulse Ox O2 Delivery O2 Flow Rate FiO2 03/03/18 09:00 Room Air 03/03/18 08:00 97.9 79 20 110/90 (97) 94 Status: improved Disposition: ADMITTED INPATIENT Condition: Serious Magan Faria MD Mar 02, 2018 21:01
[2018-03-02] MEDS ORDERED: ZESTRIL20 MG ORAL (21:10)
[2018-03-02] MEDS ORDERED: IBUPROFEN600 MG ORAL (21:10)
[2018-03-02] MEDS ORDERED: SENNA176 MG/5 M PO (21:10)
[2018-03-02] MEDS ORDERED: FLEET ENEMA133 ML RECTAL (21:10)
[2018-03-02] MEDS ORDERED: POTASSIUM CHLO20 ME1 ORAL (21:10)
[2018-03-02] MEDS ORDERED: COLACE100 MG ORAL (21:10)
[2018-03-02] MEDS ORDERED: DULCOLAX10 MG RC (21:10)
[2018-03-02 21:33] LABS: BASOPHILS % (AUTO) 0.9 % (0.0-2.0); HEMATOCRIT 48.9 % (42.0-52.0); HEMOGLOBIN 16.3 G/DL (14.2-18.0); LYMPHOCYTES % (AUTO) 18.4 % (20.0-45.0); MEAN CORPUSCULAR VOLUME 91 FL (80-99); MONOCYTES % (AUTO) 8.1 % (1.0-10.0); NEUTROPHILS % (AUTO) 71.6 % (45.0-75.0); PLATELET COUNT 179 K/UL (150-450); RED BLOOD COUNT 5.36 M/UL (4.70-6.10); RED CELL DISTRIBUTION WIDTH 11.9 % (11.6-14.8); WHITE BLOOD COUNT 12.2 K/UL (4.8-10.8)
[2018-03-02 21:34] LABS: ANION GAP 6 mmol/L (5-15); BLOOD UREA NITROGEN 21 mg/dL (7-18); CALCIUM 9.4 MG/DL (8.5-10.1); CARBON DIOXIDE 30 MMOL/L (21-32); CHLORIDE 105 MMOL/L (98-107); CREATININE 0.8 MG/DL (0.55-1.30); POTASSIUM 4.2 MMOL/L (3.5-5.1); SODIUM 141 MMOL/L (136-145)
[2018-03-02 21:50] LABS: ALANINE AMINOTRANSFERASE 59 U/L (12-78); ALBUMIN 3.1 G/DL (3.4-5.0); ALBUMIN/GLOBULIN RATIO 0.7 (1.0-2.7); ALKALINE PHOSPHATASE 89 U/L (46-116); ASPARTATE AMINO TRANSFERASE 38 U/L (15-37); BILIRUBIN,TOTAL 0.3 MG/DL (0.2-1.0); CREATINE KINASE 139 U/L (26-308)
[2018-03-02 22:00] VITALS: BP 133/66
[2018-03-02 23:30] VITALS: BP 127/66
--- NOTE | 2018-03-02 23:30 | NUR ---
ED Nurse Note: PT CONTINUES TO REST IN BED, SLEEPING MOSTLY, AROUSES EASILY TO VERBAL STIMULI, PT CONTINUES TO DENY CHEST PAIN OR ANY PAIN, NO SOB OR LABORED BREATHING, IV SITE PATENT, WILL CONTINUE TO CLOSELY MONITIOR AND PREAPRE FOR ADMISSION.
[2018-03-03 01:00] VITALS: BP 119/62
--- NOTE | 2018-03-03 01:00 | NUR ---
ED Nurse Note: RECIEVED PT BIBA FROM SNF WITH C/O CHEST PAIN, PT WAS MEDICATED NET WEB DEVELOPER WITH NITRO AND ARRIVED PAIN FREE, PT IS AWAKE, ALERT AND ORIENTED X 4, PT STATES HE IS HERE BECAUSE STAFF TOLD HIM THAT HE BELONGS IN [facility] AND THAT IS THE WRONG PLACE, PT GOWNED AND PLACED ON CARDIAC MONITORING, PT HAS PATENT IV SITE, WILL RESUME CARE ORDERED BY MD.
[2018-03-03 01:44] LABS: APPEARANCE,URINE CLEAR; BILIRUBIN, URINE NEGATIVE (NEGATIVE); GLUCOSE, URINE (UA) NEGATIVE (NEGATIVE); KETONES,URINE NEGATIVE (NEGATIVE); LEUKOCYTE ESTERASE ,URINE 1+ (NEGATIVE); NITRITE,URINE NEGATIVE (NEGATIVE); PH,URINE 5 (4.5-8.0); PROTEIN,URINE 2+ (NEGATIVE); UROBILINOGEN,URINE 1 MG/DL (0.0-1.0)
[2018-03-03 01:54] LABS: COLOR,URINE YELLOW
--- NOTE | 2018-03-03 02:13 | NUR ---
NURSE NOTES: Nyla RN called to give report on patient. ETA to floor is 15-20 minutes.
--- NOTE | 2018-03-03 02:35 | NUR ---
NURSE NOTES: Pt transferred from ER via gurney and assisted to [facility] without incidence. electronic device monitor applied. Belongings list checked with transferring RN and patient at bedside. Pt has $45 in [place] and has declined option to place in safe. Pt is awake, alert, and oriented x4. Pt is on room air and breathing is even and unlabored. No acute distress noted. IV site is asymptomatic, patent, and intact. Bed is in lowest position with brake engaged, side rails up x2, and bed alarm on. Call light and side table placed within reach. Will continue to monitor and contact MD Lopez for admitting orders.
--- NOTE | 2018-03-03 02:40 | NUR ---
ED Nurse Note: PT NOW BEING SEEN BY , PT IS VERY UPSET OF WAIT TIME AND NOT HAVING ULTRASOUND, PT WANTS TO LEAVE AMA, PT COMPLETELY DRESSED IN ROOM AND TOOK OUT OWN IV LINE, SPOKE WITH PT AND ATTEMPTING TO TRANSFER PT TO ANOTHER HOSPITAL FOR ULTRASOUND.
--- NOTE | 2018-03-03 03:00 | NUR ---
NURSE NOTES: Pt denies chest pain at this time. Will continue to monitor.
--- NOTE | 2018-03-03 03:33 | NUR ---
NURSE NOTES: MD Valdez contact for admitting orders for patient. Per MD Valdez, contact MD Brady for admitting orders.
--- NOTE | 2018-03-03 03:35 | NUR ---
NURSE NOTES: MD Brady contacted for admission orders for patient. Left message. Awaiting call back for further instructions. Will continue to monitor.
[2018-03-03 04:00] VITALS: BP 136/67
[2018-03-03] MEDS ORDERED: Albuterol/Ipratropium 3ml neb HHN PRN (07:15)
[2018-03-03] MEDS ORDERED: Nitroglycerin Subl 0.4mg tab SL PRN (07:15)
[2018-03-03] MEDS ORDERED: Ketorolac 30mg Inj IV PRN (07:15)
[2018-03-03] MEDS ORDERED: Miralax 17gm pkt ORAL PRN (07:15)
[2018-03-03] MEDS ORDERED: Enalaprilat 2.5mg/2ml Inj IV PRN (07:15)
[2018-03-03] MEDS ORDERED: dilTIAZem HCl 25mg/5ml Inj IV PRN (07:15)
[2018-03-03] MEDS ORDERED: Morphine Sulfate 4mg/ml Inj (IV/IM USE ONLY) IVP PRN (07:15)
--- NOTE | 2018-03-03 07:27 | NUR ---
HAND-OFF: Report given to Jerson CARLOS. Pt is resting in bed in stable condition. No acute distress noted. Endorsed plan of care.
--- NOTE | 2018-03-03 07:30 | NUR ---
NURSE NOTES: Pt received from Radha Pineda RN alert and oriented x4 with no s/s of SOB or n/v. Pt stated that he has 2/10 chest pain, no acute distress noted. IV site asymptomatic and patent. Bed in lowest position, call light and belongings within reach.
[2018-03-03 08:00] VITALS: BP 110/90
[2018-03-03] MEDS: Aspirin Baby 81mg ORAL SCH (08:27)
[2018-03-03] MEDS: Promethazine/Codeine 5ml UD ORAL PRN ×2 (08:27→17:54)
[2018-03-03] MEDS: Heparin 5000 units/ml inj SUBQ SCH ×2 (08:28→21:00)
--- NOTE | 2018-03-03 09:25 | NUR ---
NURSE NOTES: Pt's initial BP was 131/79 HR 79, complaining of chest pain 4/10 with no s/s of acute distress or SOB. Pulled Ntg from Pyxis and reassessed BP - 110/90 HR 79 - withheld Ntg for now and wasted with Peri Garcia RN. Pt is coughing at bedside, administered Phenergan with Codeine PRN for relief. Will continue to monitor pt.
--- NOTE | 2018-03-03 11:05 | Diagnostic Imaging Report ---
Indication: Chest pain Technique: One view of the chest Comparison: 08/09/2017 Findings: Left chest pacemaker is again demonstrated. Lungs and pleural spaces are clear. Heart size is upper limits of normal. There is no significant interim change Impression: No acute process
[2018-03-03 12:00] VITALS: BP 146/61
--- NOTE | 2018-03-03 12:10 | NUR ---
PT EVALUATION NOTE: Patient seen for initial evaluation, see complete evaluation for details. Patient will benefit from skilled inpatient PT intervention to address strength, safety, balance and functional mobility. Patient requires SBA for bed mobility, CGA for transfers and able to ambulate 50 feet with FWW and CGA, impaired gait mechanics and impulsive behavior. Recommend SNF at [place] for continued rehab. Addendum: 03/03/18 at 1211 by ASHLI ALSTON PT Amended: Links added.
--- NOTE | 2018-03-03 12:15 | Consultation ---
History of Present Illness General Date patient seen: Mar 03, 2018 Chief Complaint: Chest Pain Present Illness HPI 62 years old male with past medical history of HTN, bronchitis/asthma, pacemaker , liver disease, hypothyroidism schizophrenia, anxiety, depression, detention resident presented to emergency room with chief complaint of chest pain, ongoing problem for several months, chest pain described as nonexertional , paramedics gave en route nitroglycerin and aspirin with some relief. Pt is admitted to telemetry for further work up. Allergies: Coded Allergies: No Known Allergies (Unverified , 08/06/17) Medication History Scheduled Benztropine Mesylate* (Cogentin*), 1 MG PO BID, (Reported) Docusate Sodium* (Colace*), 100 MG ORAL DAILY, (Reported) Gabapentin* (Gabapentin*), 300 MG ORAL BEDTIME, (Reported) Gabapentin* (Gabapentin*), 100 MG ORAL THREE TIMES A DAY, (Reported) Levothyroxine Sodium* (Synthroid*), 50 MCG ORAL DAILY, (Reported) Lisinopril (Lisinopril*), 20 MG ORAL DAILY, (Reported) Lisinopril* (Zestril*), 20 MG ORAL DAILY, (Reported) Lurasidone Hcl (Latuda), 40 MG PO BEDTIME, (Reported) Magnesium Hydroxide* (Milk Of Magnesia*), 30 ML ORAL EVERY 3 DAYS, (Reported) Potassium Chloride* (K-Dur*), 20 MEQ ORAL DAILY, (Reported) Potassium Chloride* (K-Dur*), 20 MEQ ORAL DAILY, (Reported) Senna [place] Extract (Senna), 17.6 MG PO HS, (Reported) Scheduled PRN Acetaminophen* (Acetaminophen 325MG Tablet*), 650 MG ORAL Q4H PRN for Fever/ Headache/Mild Pain, (Reported) Albuterol Sulfate* (Albuterol Sulfate Hhn*), 3 ML INH Q6H PRN for Shortness of Breath, (Reported) Bisacodyl (Dulcolax), 10 MG RC DAILY PRN for Constipation, (Reported) Bisacodyl (Dulcolax), 10 MG RC DAILY PRN for Constipation, (Reported) Ibuprofen* (Motrin*), 400 MG ORAL FOUR TIMES A DAY PRN for For Pain, (Reported) Na Phos,M-B/Na Phos,Di-Ba* (Fleet Enema*), 133 ML RECTAL EVERY OTHER DAY PRN for Constipation, (Reported) Na Phos,M-B/Na Phos,Di-Ba* (Fleet Enema*), 133 ML RECTAL DAILY PRN for Constipation, (Reported) Patient History Healthcare decision maker Resuscitation status Full Code Advanced Directive on File Yes Past Medical/Surgical History Past Medical/Surgical History: (1) Hypothyroid (2) Asthma (3) Schizophrenia (4) Bipolar depression Review of Systems Cardiovascular: Reports: chest pain All Other Systems: negative except mentioned in HPI Physical Exam General Appearance: WD/WN, no apparent distress Lines, tubes and drains: peripheral HEENT: normocephalic, atraumatic Neck: non-tender, normal alignment Respiratory/Chest: chest wall non-tender, lungs clear Breasts: no masses Cardiovascular/Chest: normal rate Abdomen: normal bowel sounds, non tender Genitourinary/Rectal: normal genital exam Extremities: normal range of motion Last 24 Hour Vital Signs Date Time Temp Pulse Resp B/P (MAP) Pulse Ox O2 Delivery O2 Flow Rate FiO2 03/03/18 09:00 Room Air 03/03/18 08:00 97.9 79 20 110/90 (97) 94 03/03/18 08:00 66 03/03/18 04:00 77 03/03/18 04:00 97.9 77 20 136/67 (90) 99 03/03/18 03:08 Room Air 03/03/18 02:15 98.4 80 16 119/62 100 Room Air 03/03/18 01:00 98.4 80 16 119/62 100 Room Air 03/02/18 23:30 98.4 85 16 127/66 100 Room Air 03/02/18 22:00 98.4 81 16 133/66 100 Room Air 03/02/18 21:16 144/78 03/02/18 21:00 80 16 Room Air 03/02/18 20:45 98.4 80 16 140/71 100 Room Air Intake and Output 03/02/18 03/03/18 19:00 07:00 Intake Total 240 ml Balance 240 ml Intake Oral 240 ml # Voids 1 Laboratory Tests Test 03/02/18 21:00 03/03/18 00:40 03/03/18 08:00 White Blood Count 12.2 K/UL (4.8-10.8) H Red Blood Count 5.36 M/UL (4.70-6.10) Hemoglobin 16.3 G/DL (14.2-18.0) Hematocrit 48.9 % (42.0-52.0) Mean Corpuscular Volume 91 FL (80-99) Mean Corpuscular Hemoglobin 30.5 PG (27.0-31.0) Mean Corpuscular Hemoglobin Concent 33.4 G/DL (32.0-36.0) Red Cell Distribution Width 11.9 % (11.6-14.8) Platelet Count 179 K/UL (150-450) Mean Platelet Volume 9.9 FL (6.5-10.1) Neutrophils (%) (Auto) 71.6 % (45.0-75.0) Lymphocytes (%) (Auto) 18.4 % (20.0-45.0) L Monocytes (%) (Auto) 8.1 % (1.0-10.0) Eosinophils (%) (Auto) 1.0 % (0.0-3.0) Basophils (%) (Auto) 0.9 % (0.0-2.0) Prothrombin Time 10.7 SEC (9.30-11.50) Prothromb Time International Ratio 1.0 (0.9-1.1) Activated Partial Thromboplast Time 27 SEC (23-33) Sodium Level 141 MMOL/L (136-145) Potassium Level 4.2 MMOL/L (3.5-5.1) Chloride Level 105 MMOL/L (98-107) Carbon Dioxide Level 30 MMOL/L (21-32) Anion Gap 6 mmol/L (5-15) Blood Urea Nitrogen 21 mg/dL (7-18) H Creatinine 0.8 MG/DL (0.55-1.30) Estimat Glomerular Filtration Rate > 60 mL/min (>60) Glucose Level 102 MG/DL (74-106) Calcium Level 9.4 MG/DL (8.5-10.1) Total Bilirubin 0.3 MG/DL (0.2-1.0) Aspartate Amino Transf (AST/SGOT) 38 U/L (15-37) H Alanine Aminotransferase (ALT/SGPT) 59 U/L (12-78) Alkaline Phosphatase 89 U/L (46-116) Total Creatine Kinase 139 U/L (26-308) Troponin I 0.010 ng/mL (0.000-0.056) 0.018 ng/mL (0.000-0.056) Pro-B-Type Natriuretic Peptide 70 pg/mL (0-125) Total Protein 7.5 G/DL (6.4-8.2) Albumin 3.1 G/DL (3.4-5.0) L Globulin 4.4 g/dL Albumin/Globulin Ratio 0.7 (1.0-2.7) L Urine Color Yellow Urine Appearance Clear Urine pH 5 (4.5-8.0) Urine Specific [place] 1.025 (1.005-1.035) Urine Protein 2+ (NEGATIVE) H Urine Glucose (UA) Negative (NEGATIVE) Urine Ketones Negative (NEGATIVE) Urine Blood Negative (NEGATIVE) Urine Nitrite Negative (NEGATIVE) Urine Bilirubin Negative (NEGATIVE) Urine Urobilinogen 1 MG/DL (0.0-1.0) H Urine Leukocyte Esterase 1+ (NEGATIVE) H Urine RBC 0-2 /HPF (0 - 0) H Urine WBC 2-4 /HPF (0 - 0) Urine Squamous Epithelial Cells None /LPF (NONE/OCC) Urine Bacteria Few /HPF (NONE) Urine Opiates Screen Negative (NEGATIVE) Urine Barbiturates Screen Negative (NEGATIVE) Phencyclidine (PCP) Screen Negative (NEGATIVE) Urine Amphetamines Screen Negative (NEGATIVE) Urine Benzodiazepines Screen Negative (NEGATIVE) Urine Cocaine Screen Negative (NEGATIVE) Urine Marijuana (THC) Screen Negative (NEGATIVE) Height (Feet): 5 Height (Inches): 11.00 Weight (Pounds): 290 Medications Current Medications Medications (Trade) Dose Ordered Sig/Aster Route PRN Reason Start Time Stop Time Status Last Admin Dose Admin Acetaminophen (Tylenol) 650 mg Q4H PRN ORAL FEVER 03/03/18 07:15 04/02/18 07:14 Albuterol/ Ipratropium (Albuterol/ Ipratropium) 3 ml Q4H PRN HHN Shortness of Breath 03/03/18 07:15 03/08/18 07:14 Aspirin (ASA) 162 mg DAILY ORAL 03/03/18 09:00 04/02/18 08:59 03/03/18 08:27 Diltiazem HCl (Cardizem) 10 mg Q1H PRN IV heart rate more than 120, 03/03/18 07:15 04/02/18 07:14 Enalaprilat (Vasotec) 2.5 mg Q6H PRN IV sbp more than 160 03/03/18 07:15 04/02/18 07:14 Gabapentin (Neurontin) 100 mg THREE TIMES A DAY ORAL 03/03/18 09:00 04/02/18 08:59 03/03/18 08:27 Heparin Sodium (Porcine) (Heparin 5000 units/ml) 5,000 units EVERY 12 HOURS SUBQ 03/03/18 09:00 04/02/18 08:59 Ketorolac Tromethamine (Toradol 30mg) 30 mg Q6H PRN IV moderate pain ( 4-6) 03/03/18 07:15 03/08/18 07:14 Levothyroxine Sodium (Synthroid) 50 mcg ACBREAKFAST ORAL 03/03/18 07:30 04/02/18 07:29 03/03/18 08:30 Morphine Sulfate (Morphine Sulfate) 2 mg Q4H PRN IVP severe Pain (Pain Scale 7-10) 03/03/18 07:15 03/10/18 07:14 Nitroglycerin (Ntg) 0.4 mg Q5M PRN SL Prn Chest Pain 03/03/18 07:15 04/02/18 07:14 Ondansetron HCl (Zofran) 4 mg Q6H PRN IVP Nausea & Vomiting 03/03/18 07:15 04/02/18 07:14 Polyethylene Glycol (Miralax) 17 gm DAILYPRN PRN ORAL Constipation 03/03/18 07:15 04/02/18 07:14 Promethazine HCl/ Codeine (Phenergan with Codeine) 5 ml Q6H PRN ORAL For Cough 03/03/18 08:30 04/02/18 08:29 03/03/18 08:27 Temazepam (Restoril) 15 mg HSPRN PRN ORAL Insomnia 03/03/18 07:15 03/10/18 07:14 Assessment/Plan Problem List: (1) Acute coronary syndrome ICD Codes: I24.9 - Acute ischemic heart disease, unspecified SNOMED: 025570454 (2) Hypothyroid ICD Codes: E03.9 - Hypothyroidism, unspecified SNOMED: 50387052 (3) Schizophrenia ICD Codes: F20.9 - Schizophrenia, unspecified SNOMED: 08031344 (4) Bipolar depression ICD Codes: F31.30 - Bipolar disorder, current episode depressed, mild or moderate severity, unspecified SNOMED: 540190937 Assessment/Plan serial EKG, troponin, echo cardiology consult doppler of US to screen for PE, ( unlikely) symptomatic treatment check tsh, T3, T4 dvt prophylaxis monitor BP continue psych meds. and f/u by psychiatry. Nicolas Brady MD Mar 03, 2018 12:15
--- NOTE | 2018-03-03 14:30 | NUR ---
NURSE NOTES: Pt asked that Refrigeration Tech contact his public relations consultant to confirm status of pending conservatorship and to inform them of hospitalization, provided number . RN made Deisy Refrigeration Tech aware and provided number. Per patient, "I don't have the name of the public relations consultant but you can tell them my name and they can look me up in a list."
[2018-03-03 16:00] VITALS: BP 135/82
--- NOTE | 2018-03-03 17:06 | NUR ---
Social Service Note SW contacted the Inspector Mechanical's Office [phone]. Patient's Inspector Mechanical is Lizet Fam. Mrs. Fam was out of the office today in court. Message left on her voice mail. Main office states the only way to reach Mrs. Fam is to contact the main office, they do not provide a direct line for their public defenders. Patient is pending a hiring for conservatorship. Patient is a resident of [facility] [phone] since 04/2016, anticipated return to SNF upon discharge. Will monitor and follow up as needed.
--- NOTE | 2018-03-03 19:30 | History and Physical Report ---
DATE OF ADMISSION: 03/02/2018 TIME SEEN: 3 p.m. CONSULTANTS: 1. Nicolas Brady M.D. 2. Larry Avila M.D. 3. Tran Batista M.D. CHIEF COMPLAINT: Chest pain, dizziness, weakness. BRIEF HISTORY: This is a 62-year-old male from [facility], presented with the above-mentioned diagnosis, sharp, intermittent substernal. No radiation. No loss of consciousness. No nausea, vomiting. PAST MEDICAL HISTORY: Includes heart disease and schizophrenia. PAST SURGICAL HISTORY: Right hip surgery. MEDICATIONS: Gabapentin, aspirin, heparin, levothyroxine, albuterol, nitroglycerin, ketorolac, morphine, Zofran, temazepam, enalapril, diltiazem. ALLERGIES: Denies. SOCIAL HISTORY: Positive smoking. Occasional alcohol. No intravenous drug abuse. FAMILY HISTORY: Noncontributory. PHYSICAL EXAMINATION: GENERAL: Calm in bed, oriented x2, in no acute distress. VITAL SIGNS: Temperature is 97, pulse 77, respirations 16, blood pressure 146/61. CARDIOVASCULAR: No murmur. LUNGS: Distant and clear. ABDOMEN: Bowel sounds positive. Nontender. Nondistended. EXTREMITIES: No cyanosis, clubbing, or edema. NEUROLOGIC: The patient moves all extremities, slightly weak. LABORATORY AND DIAGNOSTIC DATA: White count 12.2 otherwise CBC is normal. BMP shows BUN 21, AST 38, troponin 0.01, albumin 3.1, otherwise BMP is normal. INR is 1.0. PTT 27. Urine toxicology is negative. Urine urinalysis showed 1+ leukocyte esterase. ASSESSMENT: 1. UTI. 2. Chest pain. 3. Heart disease. 4. Schizophrenia. 5. Asthma. PLAN: 1. Antibiotics per Infectious disease. 2. Troponin q. 8h. x3 and EKG in a.m. 3. Cardiac evaluation. 4. Pain control. 5. Psych evaluation. 6. CBC and BMP in the morning. 7. PT and dietary evaluation. Rocael Valdez D.O. DR: Billie JOB#: [id number] CC:
--- NOTE | 2018-03-03 19:32 | NUR ---
CASE MANAGEMENT: REVIEW 62/M BIBA FROM [facility] CC: CHEST PAIN SI: CHEST PAIN . ACS T 97.2 HR 77 RR 16 BP 146/61 SAT 96% ROOM AIR WBC 12.2 TROPONIN I 0.018 IS: NITRO TOPICAL X1 PATIENT ADMITTED TO TELEMETRY UNIT 03/02/2018 DCP: PATIENT IS FROM [facility]
--- NOTE | 2018-03-03 19:57 | NUR ---
HAND-OFF: Report given to Janette Meng RN.
[2018-03-03 20:00] VITALS: BP 130/67
--- NOTE | 2018-03-03 20:05 | NUR ---
NURSE NOTES: Received report from BREANNA Arthur. Patient is asleep lying semi-moreno's; resting comfortably. Arousable to verbal and tactile stimuli. No signs of acute distress noted; denies pain at this time. AOx4; able to make needs known. Checked IV site; patent and flushed. No erythema, bleeding, or infiltration noted. Urinal at bedside. Bed at lowest position, brakes on, siderails up x3. Call light within reach. Will continue to monitor.
[2018-03-04] VITALS: BP 130/65
[2018-03-04 04:00] VITALS: BP 149/100
--- NOTE | 2018-03-04 04:25 | NUR ---
NURSE NOTES: Patient is asleep lying semi-moreno's; resting comfortably. No signs of acute distress or pain noted at this time.
[2018-03-04] MEDS: Promethazine/Codeine 5ml UD ORAL PRN (05:43)
[2018-03-04 07:13] LABS: BASOPHILS % (AUTO) 1.4 % (0.0-2.0); EOSINOPHILS % (AUTO) 4.3 % (0.0-3.0); HEMATOCRIT 48.3 % (42.0-52.0); HEMOGLOBIN 16.1 G/DL (14.2-18.0); LYMPHOCYTES % (AUTO) 28.2 % (20.0-45.0); MEAN CORPUSCULAR VOLUME 91 FL (80-99); MONOCYTES % (AUTO) 10.2 % (1.0-10.0); PLATELET COUNT 155 K/UL (150-450); RED BLOOD COUNT 5.32 M/UL (4.70-6.10); RED CELL DISTRIBUTION WIDTH 12.5 % (11.6-14.8); WHITE BLOOD COUNT 9.8 K/UL (4.8-10.8)
[2018-03-04 07:24] LABS: ANION GAP 4 mmol/L (5-15); BLOOD UREA NITROGEN 17 mg/dL (7-18); CALCIUM 8.8 MG/DL (8.5-10.1); CARBON DIOXIDE 30 MMOL/L (21-32); CHLORIDE 104 MMOL/L (98-107); CREATININE 0.8 MG/DL (0.55-1.30); POTASSIUM 4.4 MMOL/L (3.5-5.1); SODIUM 138 MMOL/L (136-145)
--- NOTE | 2018-03-04 07:33 | NUR ---
HAND-OFF: Report given to BREANNA Walker. Patient is awake sitting on the edge of the bed eating breakfast. In stable condition.
[2018-03-04 07:52] LABS: CHOLESTEROL 131 MG/DL (< 200); HDL CHOLESTEROL 35 MG/DL (40-60); TRIGLYCERIDES 98 MG/DL (30-150)
[2018-03-04 08:00] VITALS: BP 125/74
--- NOTE | 2018-03-04 08:52 | NUR ---
NURSE NOTES: Pt in bed sitting on the edge eating breakfast, bed in low position, calll light at bedside, bed alarm on due to unstable due to left foot pain, IV site patient and intact, pt Ox4 calm and cooperative, denies pain, 2 rails up for safety, on room air, no s/s of distress or sob noted.
[2018-03-04] MEDS: Aspirin Baby 81mg ORAL SCH (09:40)
[2018-03-04] MEDS: Heparin 5000 units/ml inj SUBQ SCH ×2 (09:43→21:29)
--- NOTE | 2018-03-04 11:33 | General Progress Note ---
Assessment/Plan Problem List: (1) Hypothyroid ICD Codes: E03.9 - Hypothyroidism, unspecified SNOMED: 30647462 (2) Asthma ICD Codes: J45.909 - Unspecified asthma, uncomplicated SNOMED: 386619451 (3) Chest pain ICD Codes: R07.9 - Chest pain, unspecified SNOMED: 61765842 (4) Schizophrenia ICD Codes: F20.9 - Schizophrenia, unspecified SNOMED: 61367377 Qualifiers: Qualified Codes: F20.9 - Schizophrenia, unspecified (5) Acute coronary syndrome ICD Codes: I24.9 - Acute ischemic heart disease, unspecified SNOMED: 298689059 Status: unchanged Assessment/Plan pt diet pain control cardio f/u cbc bmp am endo eval dc plan Subjective Constitutional: Reports: weakness Allergies: Coded Allergies: No Known Allergies (Unverified , 08/06/17) All Systems: reviewed and negative except above Subjective calm in bed Objective Last 24 Hour Vital Signs Date Time Temp Pulse Resp B/P (MAP) Pulse Ox O2 Delivery O2 Flow Rate FiO2 03/04/18 08:30 Room Air 03/04/18 08:07 89 20 Room Air 21 03/04/18 08:00 97.4 74 20 125/74 (91) 99 03/04/18 04:00 60 03/04/18 04:00 97.7 80 20 149/100 (116) 98 03/04/18 03:33 85 20 Room Air 21 03/04/18 00:00 60 03/04/18 00:00 97.6 65 20 130/65 (86) 93 03/03/18 21:00 Room Air 03/03/18 20:00 60 03/03/18 20:00 97.6 71 19 130/67 (88) 95 03/03/18 16:00 97.2 79 16 135/82 (99) 95 03/03/18 16:00 80 03/03/18 12:00 75 03/03/18 12:00 97.1 77 16 146/61 (89) 96 Intake and Output 03/03/18 03/04/18 18:59 06:59 Intake Total 480 ml 200 ml Output Total 700 ml Balance -220 ml 200 ml Intake Oral 480 ml 200 ml Output Urine Total 700 ml # Voids 2 3 Laboratory Tests 03/04/18 06:40: White Blood Count 9.8, Red Blood Count 5.32, Hemoglobin 16.1, Hematocrit 48.3, Mean Corpuscular Volume 91, Mean Corpuscular Hemoglobin 30.3, Mean Corpuscular Hemoglobin Concent 33.4, Red Cell Distribution Width 12.5, Platelet Count 155, Mean Platelet Volume 10.7H, Neutrophils (%) (Auto) 56.0, Lymphocytes (%) (Auto) 28.2, Monocytes (%) (Auto) 10.2H, Eosinophils (%) (Auto) 4.3H, Basophils (%) ( Auto) 1.4, Prothrombin Time 10.9, Prothromb Time International Ratio 1.0, Activated Partial Thromboplast Time 29, Sodium Level 138, Potassium Level 4.4, Chloride Level 104, Carbon Dioxide Level 30, Anion Gap 4L, Blood Urea Nitrogen 17, Creatinine 0.8, Estimat Glomerular Filtration Rate > 60, Glucose Level 94, Calcium Level 8.8, Troponin I 0.021, C-Reactive Protein, Quantitative 0.9, Triglycerides Level 98, Cholesterol Level 131, LDL Cholesterol 83, HDL Cholesterol 35L, Cholesterol/HDL Ratio 3.7, Thyroid Stimulating Hormone (TSH) 9.735H Height (Feet): 5 Height (Inches): 11.00 Weight (Pounds): 290 General Appearance: lethargic EENT: normal ENT inspection Neck: normal alignment Cardiovascular: normal peripheral pulses, normal rate, regular rhythm Respiratory/Chest: chest wall non-tender, lungs clear, normal breath sounds Abdomen: normal bowel sounds, non tender, soft Extremities: normal inspection Edema: no edema noted Arm (L), no edema noted Arm (R), no edema noted Leg (L), no edema noted Leg (R), no edema noted Pedal (L), no edema noted Pedal (R), no edema noted Generalized Neurologic: motor weakness Skin: normal pigmentation, warm/dry Rocael Valdez DO Mar 04, 2018 11:33
--- NOTE | 2018-03-04 11:59 | Pulmonology Progress Note ---
Assessment/Plan Problems: (1) Acute coronary syndrome (2) Hypothyroid (3) Schizophrenia (4) Bipolar depression Assessment/Plan improving all reviewed symptomatic treatment f/u by psych Subjective ROS Limited/Unobtainable: No Constitutional: Reports: no symptoms HEENT: Repors: no symptoms Respiratory: Reports: no symptoms Allergies: Coded Allergies: No Known Allergies (Unverified , 08/06/17) Objective Last 24 Hour Vital Signs Date Time Temp Pulse Resp B/P (MAP) Pulse Ox O2 Delivery O2 Flow Rate FiO2 03/04/18 08:30 Room Air 03/04/18 08:07 89 20 Room Air 21 03/04/18 08:00 97.4 74 20 125/74 (91) 99 03/04/18 04:00 60 03/04/18 04:00 97.7 80 20 149/100 (116) 98 03/04/18 03:33 85 20 Room Air 21 03/04/18 00:00 60 03/04/18 00:00 97.6 65 20 130/65 (86) 93 03/03/18 21:00 Room Air 03/03/18 20:00 60 03/03/18 20:00 97.6 71 19 130/67 (88) 95 03/03/18 16:00 97.2 79 16 135/82 (99) 95 03/03/18 16:00 80 03/03/18 12:00 75 03/03/18 12:00 97.1 77 16 146/61 (89) 96 Intake and Output 03/03/18 03/04/18 18:59 06:59 Intake Total 480 ml 200 ml Output Total 700 ml Balance -220 ml 200 ml Intake Oral 480 ml 200 ml Output Urine Total 700 ml # Voids 2 3 General Appearance: WD/WN HEENT: normocephalic, anicteric Respiratory/Chest: lungs clear, normal breath sounds, chest wall tender Cardiovascular: normal peripheral pulses, normal rate Abdomen: normal bowel sounds, no organomegaly Genitourinary: normal external genitalia Extremities: no clubbing Neurologic/Psychiatric: no motor/sensory deficits Lymphatic: no neck adenopathy Musculoskeletal: no effusion Laboratory Tests 03/04/18 06:40: White Blood Count 9.8, Red Blood Count 5.32, Hemoglobin 16.1, Hematocrit 48.3, Mean Corpuscular Volume 91, Mean Corpuscular Hemoglobin 30.3, Mean Corpuscular Hemoglobin Concent 33.4, Red Cell Distribution Width 12.5, Platelet Count 155, Mean Platelet Volume 10.7H, Neutrophils (%) (Auto) 56.0, Lymphocytes (%) (Auto) 28.2, Monocytes (%) (Auto) 10.2H, Eosinophils (%) (Auto) 4.3H, Basophils (%) ( Auto) 1.4, Prothrombin Time 10.9, Prothromb Time International Ratio 1.0, Activated Partial Thromboplast Time 29, Sodium Level 138, Potassium Level 4.4, Chloride Level 104, Carbon Dioxide Level 30, Anion Gap 4L, Blood Urea Nitrogen 17, Creatinine 0.8, Estimat Glomerular Filtration Rate > 60, Glucose Level 94, Calcium Level 8.8, Troponin I 0.021, C-Reactive Protein, Quantitative 0.9, Triglycerides Level 98, Cholesterol Level 131, LDL Cholesterol 83, HDL Cholesterol 35L, Cholesterol/HDL Ratio 3.7, Thyroid Stimulating Hormone (TSH) 9.735H Current Medications Medications (Trade) Dose Ordered Sig/Aster Route PRN Reason Start Time Stop Time Status Last Admin Dose Admin Acetaminophen (Tylenol) 650 mg Q4H PRN ORAL FEVER 03/03/18 07:15 04/02/18 07:14 Albuterol/ Ipratropium (Albuterol/ Ipratropium) 3 ml Q4H PRN HHN Shortness of Breath 03/03/18 07:15 03/08/18 07:14 Aspirin (ASA) 162 mg DAILY ORAL 03/03/18 09:00 04/02/18 08:59 03/04/18 09:40 Diltiazem HCl (Cardizem) 10 mg Q1H PRN IV heart rate more than 120, 03/03/18 07:15 04/02/18 07:14 Enalaprilat (Vasotec) 2.5 mg Q6H PRN IV sbp more than 160 03/03/18 07:15 04/02/18 07:14 Gabapentin (Neurontin) 100 mg THREE TIMES A DAY ORAL 03/03/18 09:00 04/02/18 08:59 03/04/18 09:40 Heparin Sodium (Porcine) (Heparin 5000 units/ml) 5,000 units EVERY 12 HOURS SUBQ 03/03/18 09:00 04/02/18 08:59 03/04/18 09:43 Ketorolac Tromethamine (Toradol 30mg) 30 mg Q6H PRN IV moderate pain ( 4-6) 03/03/18 07:15 03/08/18 07:14 Levothyroxine Sodium (Synthroid) 50 mcg ACBREAKFAST ORAL 03/03/18 07:30 04/02/18 07:29 03/04/18 05:43 Morphine Sulfate (Morphine Sulfate) 2 mg Q4H PRN IVP severe Pain (Pain Scale 7-10) 03/03/18 07:15 03/10/18 07:14 Nitroglycerin (Ntg) 0.4 mg Q5M PRN SL Prn Chest Pain 03/03/18 07:15 04/02/18 07:14 Ondansetron HCl (Zofran) 4 mg Q6H PRN IVP Nausea & Vomiting 03/03/18 07:15 04/02/18 07:14 Polyethylene Glycol (Miralax) 17 gm DAILYPRN PRN ORAL Constipation 03/03/18 07:15 04/02/18 07:14 Promethazine HCl/ Codeine (Phenergan with Codeine) 5 ml Q6H PRN ORAL For Cough 03/03/18 08:30 04/02/18 08:29 03/04/18 05:43 Temazepam (Restoril) 15 mg HSPRN PRN ORAL Insomnia 03/03/18 07:15 03/10/18 07:14 Nicolas Brady MD Mar 04, 2018 11:59
[2018-03-04 12:00] VITALS: BP 134/102
--- NOTE | 2018-03-04 14:21 | NUR ---
Social Work Patient requesting to speak with this SW. This SW met with patient who is refusing to discharge back to [facility], requesting another facility instead. This Sw informed patient assisted beds aren't available at other SNF's, will need to return to his prior facility and wait for a bed to become available from there. Patient becoming upset, stating "I was told if I don't want to go back to that facility, I don't have to." This Sw is recommending for patient to discharge back to [facility] when medically cleared.
--- NOTE | 2018-03-04 15:20 | Consultation ---
History of Present Illness General Date patient seen: Mar 04, 2018 Chief Complaint: Chest Pain Present Illness HPI 62 y/o M with hx of HTN, bronchitis/asthma, pacemaker, liver disease, CAD, HTN, L hip replacement, Gout, hypothyroidism schizophrenia, anxiety, depression, [facility] resident presented to ED on 03/02 with chest pain. Patient refers has been going on for several months months and it is described as nonexertional. The chest pain that brought him to the hospital it warted as rest , located in L side and radiated to shoulder. He was given aspirin and Nitroglycerin en route with improvement. He also b/l leg swelling. Denied f/c, palpitations, n/v/d, dysuria, abd pain, SOB, cough. AGUILAR. ID consulted for leukocytosis which as now resolved. Allergies: Coded Allergies: No Known Allergies (Unverified , 08/06/17) Medication History Scheduled Benztropine Mesylate* (Cogentin*), 1 MG PO BID, (Reported) Docusate Sodium* (Colace*), 100 MG ORAL DAILY, (Reported) Gabapentin* (Gabapentin*), 300 MG ORAL BEDTIME, (Reported) Gabapentin* (Gabapentin*), 100 MG ORAL THREE TIMES A DAY, (Reported) Levothyroxine Sodium* (Synthroid*), 50 MCG ORAL DAILY, (Reported) Lisinopril (Lisinopril*), 20 MG ORAL DAILY, (Reported) Lisinopril* (Zestril*), 20 MG ORAL DAILY, (Reported) Lurasidone Hcl (Latuda), 40 MG PO BEDTIME, (Reported) Magnesium Hydroxide* (Milk Of Magnesia*), 30 ML ORAL EVERY 3 DAYS, (Reported) Potassium Chloride* (K-Dur*), 20 MEQ ORAL DAILY, (Reported) Potassium Chloride* (K-Dur*), 20 MEQ ORAL DAILY, (Reported) Senna [place] Extract (Senna), 17.6 MG PO HS, (Reported) Scheduled PRN Acetaminophen* (Acetaminophen 325MG Tablet*), 650 MG ORAL Q4H PRN for Fever/ Headache/Mild Pain, (Reported) Albuterol Sulfate* (Albuterol Sulfate Hhn*), 3 ML INH Q6H PRN for Shortness of Breath, (Reported) Bisacodyl (Dulcolax), 10 MG RC DAILY PRN for Constipation, (Reported) Bisacodyl (Dulcolax), 10 MG RC DAILY PRN for Constipation, (Reported) Ibuprofen* (Motrin*), 400 MG ORAL FOUR TIMES A DAY PRN for For Pain, (Reported) Na Phos,M-B/Na Phos,Di-Ba* (Fleet Enema*), 133 ML RECTAL EVERY OTHER DAY PRN for Constipation, (Reported) Na Phos,M-B/Na Phos,Di-Ba* (Fleet Enema*), 133 ML RECTAL DAILY PRN for Constipation, (Reported) Patient History Healthcare decision maker Resuscitation status Full Code Advanced Directive on File Yes Patient History Narrative Pmhx: as above Shx: Positive smoking. Occasional alcohol. No intravenous drug abuse. Fhx: non contributory Review of Systems All Other Systems: negative except mentioned in HPI Physical Exam Physical Exam Narrative GENERAL: Calm in bed, oriented x2, in no acute distress. CARDIOVASCULAR: No murmur. LUNGS: Distant and clear. ABDOMEN: Bowel sounds positive. Nontender. Nondistended. EXTREMITIES: No cyanosis, clubbing, or edema. NEUROLOGIC: The patient moves all extremities, slightly weak. Last 24 Hour Vital Signs Date Time Temp Pulse Resp B/P (MAP) Pulse Ox O2 Delivery O2 Flow Rate FiO2 03/04/18 12:00 97.0 78 20 134/102 (113) 96 03/04/18 11:22 76 03/04/18 08:30 Room Air 03/04/18 08:07 89 20 Room Air 21 03/04/18 08:00 97.4 74 20 125/74 (91) 99 03/04/18 07:40 80 03/04/18 04:00 60 03/04/18 04:00 97.7 80 20 149/100 (116) 98 03/04/18 03:33 85 20 Room Air 21 03/04/18 00:00 60 03/04/18 00:00 97.6 65 20 130/65 (86) 93 03/03/18 21:00 Room Air 03/03/18 20:00 60 03/03/18 20:00 97.6 71 19 130/67 (88) 95 03/03/18 16:00 97.2 79 16 135/82 (99) 95 03/03/18 16:00 80 Intake and Output 03/03/18 03/04/18 19:00 07:00 Intake Total 480 ml 200 ml Output Total 700 ml Balance -220 ml 200 ml Intake Oral 480 ml 200 ml Output Urine Total 700 ml # Voids 2 3 Laboratory Tests Test 03/04/18 06:40 White Blood Count 9.8 K/UL (4.8-10.8) Red Blood Count 5.32 M/UL (4.70-6.10) Hemoglobin 16.1 G/DL (14.2-18.0) Hematocrit 48.3 % (42.0-52.0) Mean Corpuscular Volume 91 FL (80-99) Mean Corpuscular Hemoglobin 30.3 PG (27.0-31.0) Mean Corpuscular Hemoglobin Concent 33.4 G/DL (32.0-36.0) Red Cell Distribution Width 12.5 % (11.6-14.8) Platelet Count 155 K/UL (150-450) Mean Platelet Volume 10.7 FL (6.5-10.1) H Neutrophils (%) (Auto) 56.0 % (45.0-75.0) Lymphocytes (%) (Auto) 28.2 % (20.0-45.0) Monocytes (%) (Auto) 10.2 % (1.0-10.0) H Eosinophils (%) (Auto) 4.3 % (0.0-3.0) H Basophils (%) (Auto) 1.4 % (0.0-2.0) Prothrombin Time 10.9 SEC (9.30-11.50) Prothromb Time International Ratio 1.0 (0.9-1.1) Activated Partial Thromboplast Time 29 SEC (23-33) Sodium Level 138 MMOL/L (136-145) Potassium Level 4.4 MMOL/L (3.5-5.1) Chloride Level 104 MMOL/L (98-107) Carbon Dioxide Level 30 MMOL/L (21-32) Anion Gap 4 mmol/L (5-15) L Blood Urea Nitrogen 17 mg/dL (7-18) Creatinine 0.8 MG/DL (0.55-1.30) Estimat Glomerular Filtration Rate > 60 mL/min (>60) Glucose Level 94 MG/DL (74-106) Calcium Level 8.8 MG/DL (8.5-10.1) Troponin I 0.021 ng/mL (0.000-0.056) C-Reactive Protein, Quantitative 0.9 mg/dL (0.00-0.90) Triglycerides Level 98 MG/DL (30-150) Cholesterol Level 131 MG/DL (< 200) LDL Cholesterol 83 mg/dL (<100) HDL Cholesterol 35 MG/DL (40-60) L Cholesterol/HDL Ratio 3.7 (3.3-4.4) Thyroid Stimulating Hormone (TSH) 9.735 uiU/mL (0.358-3.740) Height (Feet): 5 Height (Inches): 11.00 Weight (Pounds): 290 Medications Current Medications Medications (Trade) Dose Ordered Sig/Aster Route PRN Reason Start Time Stop Time Status Last Admin Dose Admin Acetaminophen (Tylenol) 650 mg Q4H PRN ORAL FEVER 03/03/18 07:15 04/02/18 07:14 Albuterol/ Ipratropium (Albuterol/ Ipratropium) 3 ml Q4H PRN HHN Shortness of Breath 03/03/18 07:15 03/08/18 07:14 Aspirin (ASA) 162 mg DAILY ORAL 03/03/18 09:00 04/02/18 08:59 03/04/18 09:40 Diltiazem HCl (Cardizem) 10 mg Q1H PRN IV heart rate more than 120, 03/03/18 07:15 04/02/18 07:14 Enalaprilat (Vasotec) 2.5 mg Q6H PRN IV sbp more than 160 03/03/18 07:15 04/02/18 07:14 Gabapentin (Neurontin) 100 mg THREE TIMES A DAY ORAL 03/03/18 09:00 04/02/18 08:59 03/04/18 13:06 Heparin Sodium (Porcine) (Heparin 5000 units/ml) 5,000 units EVERY 12 HOURS SUBQ 03/03/18 09:00 04/02/18 08:59 03/04/18 09:43 Ketorolac Tromethamine (Toradol 30mg) 30 mg Q6H PRN IV moderate pain ( 4-6) 03/03/18 07:15 03/08/18 07:14 Levothyroxine Sodium (Synthroid) 50 mcg ACBREAKFAST ORAL 03/03/18 07:30 04/02/18 07:29 03/04/18 05:43 Morphine Sulfate (Morphine Sulfate) 2 mg Q4H PRN IVP severe Pain (Pain Scale 7-10) 03/03/18 07:15 03/10/18 07:14 Nitroglycerin (Ntg) 0.4 mg Q5M PRN SL Prn Chest Pain 03/03/18 07:15 04/02/18 07:14 Ondansetron HCl (Zofran) 4 mg Q6H PRN IVP Nausea & Vomiting 03/03/18 07:15 04/02/18 07:14 Polyethylene Glycol (Miralax) 17 gm DAILYPRN PRN ORAL Constipation 03/03/18 07:15 04/02/18 07:14 Promethazine HCl/ Codeine (Phenergan with Codeine) 5 ml Q6H PRN ORAL For Cough 03/03/18 08:30 04/02/18 08:29 03/04/18 05:43 Temazepam (Restoril) 15 mg HSPRN PRN ORAL Insomnia 03/03/18 07:15 03/10/18 07:14 Assessment/Plan Assessment/Plan Abx: None Assessment: Leukocytosis, SP- suspect reactive- no evidence of infectious process at present -u/a neg -CXR: No acute process Afebrile Chest pain -?etiology -trops neg x3 HTN bronchitis/asthma s/p pacemaker liver disease CAD HTN L hip replacement Gout hypothyroidism schizophrenia anxiety depression [facility] resident Plan: -Continue to monitor off abx -f/u cx -Monitor CBC/CMP, temperatures Thank you for this consultation. Will continue to follow along with you. Discussed with Sarita Rogers M.D. Mar 04, 2018 15:20
[2018-03-04 16:00] VITALS: BP 128/70
--- NOTE | 2018-03-04 16:18 | Cardiology Progress Note ---
Assessment/Plan Assessment/Plan The patient is seen and examined, full consult note will be dictated. Objective Last 24 Hour Vital Signs Date Time Temp Pulse Resp B/P (MAP) Pulse Ox O2 Delivery O2 Flow Rate FiO2 03/04/18 12:00 97.0 78 20 134/102 (113) 96 03/04/18 11:22 76 03/04/18 08:30 Room Air 03/04/18 08:07 89 20 Room Air 21 03/04/18 08:00 97.4 74 20 125/74 (91) 99 03/04/18 07:40 80 03/04/18 04:00 60 03/04/18 04:00 97.7 80 20 149/100 (116) 98 03/04/18 03:33 85 20 Room Air 21 03/04/18 00:00 60 03/04/18 00:00 97.6 65 20 130/65 (86) 93 03/03/18 21:00 Room Air 03/03/18 20:00 60 03/03/18 20:00 97.6 71 19 130/67 (88) 95 Intake and Output 03/03/18 03/04/18 18:59 06:59 Intake Total 480 ml 200 ml Output Total 700 ml Balance -220 ml 200 ml Intake Oral 480 ml 200 ml Output Urine Total 700 ml # Voids 2 3 Laboratory Tests Test 03/04/18 06:40 White Blood Count 9.8 K/UL (4.8-10.8) Red Blood Count 5.32 M/UL (4.70-6.10) Hemoglobin 16.1 G/DL (14.2-18.0) Hematocrit 48.3 % (42.0-52.0) Mean Corpuscular Volume 91 FL (80-99) Mean Corpuscular Hemoglobin 30.3 PG (27.0-31.0) Mean Corpuscular Hemoglobin Concent 33.4 G/DL (32.0-36.0) Red Cell Distribution Width 12.5 % (11.6-14.8) Platelet Count 155 K/UL (150-450) Mean Platelet Volume 10.7 FL (6.5-10.1) H Neutrophils (%) (Auto) 56.0 % (45.0-75.0) Lymphocytes (%) (Auto) 28.2 % (20.0-45.0) Monocytes (%) (Auto) 10.2 % (1.0-10.0) H Eosinophils (%) (Auto) 4.3 % (0.0-3.0) H Basophils (%) (Auto) 1.4 % (0.0-2.0) Prothrombin Time 10.9 SEC (9.30-11.50) Prothromb Time International Ratio 1.0 (0.9-1.1) Activated Partial Thromboplast Time 29 SEC (23-33) Sodium Level 138 MMOL/L (136-145) Potassium Level 4.4 MMOL/L (3.5-5.1) Chloride Level 104 MMOL/L (98-107) Carbon Dioxide Level 30 MMOL/L (21-32) Anion Gap 4 mmol/L (5-15) L Blood Urea Nitrogen 17 mg/dL (7-18) Creatinine 0.8 MG/DL (0.55-1.30) Estimat Glomerular Filtration Rate > 60 mL/min (>60) Glucose Level 94 MG/DL (74-106) Calcium Level 8.8 MG/DL (8.5-10.1) Troponin I 0.021 ng/mL (0.000-0.056) C-Reactive Protein, Quantitative 0.9 mg/dL (0.00-0.90) Triglycerides Level 98 MG/DL (30-150) Cholesterol Level 131 MG/DL (< 200) LDL Cholesterol 83 mg/dL (<100) HDL Cholesterol 35 MG/DL (40-60) L Cholesterol/HDL Ratio 3.7 (3.3-4.4) Thyroid Stimulating Hormone (TSH) 9.735 uiU/mL (0.358-3.740) Larry Aivla MD Mar 04, 2018 16:18
[2018-03-04] MEDS ORDERED: Lisinopril 20mg tab ORAL SCH (16:42)
--- NOTE | 2018-03-04 19:08 | NUR ---
HAND-OFF: Report given to Jonel Rn.
--- NOTE | 2018-03-04 19:10 | NUR ---
NURSE NOTES: Received report from Kevan Gaitan RN. Patient in bed asleep with HOB elevated at semifowlers, no complaints of acute pain at this time. Kept clean, dry, and comfortable in bed at all times. IV line intact and patent. Cardiac monitoring in place per protocol. Safety measures in place; siderails x3 up, call light within reach, bed in lowest position, brakes and alarm on at all times. Needs and wants anticipated and attended, will continue plan of care and monitor for any changes noted
[2018-03-04 20:00] VITALS: BP 99/50
--- NOTE | 2018-03-04 22:26 | NUR ---
NURSE NOTES: Called MD Caitlyn.and left message regarding patients behavior, outbursts of screaming with no apparent reason. Awaiting call back and will continue plan of care. Will monitor for any further changes noted
--- NOTE | 2018-03-04 22:30 | Consultation ---
DATE OF CONSULTATION: 03/04/2018 CARDIOLOGY CONSULTATION CONSULTING PHYSICIAN: Larry Avila M.D. REFERRING PHYSICIAN: 1. Irma Lopez M.D. 2. Rocael Valdez D.O. REASON FOR CONSULTATION: Management of chest pain. HISTORY OF PRESENT ILLNESS: The patient is a very unfortunate 62-year-old gentleman, resides at [facility], who presented to the hospital, who was brought in from the nursing facility for evaluation of chest pain that started at rest. Initially, it was at the right lower region of the chest wall at the right precordial area just above the liver with characteristic of sharp, with radiation to the mid sternum and to the left precordial area, constant, did not respond to first or second nitroglycerin. With the third nitroglycerin, he felt some relief. He was also given aspirin by the paramedics. At the time of arrival to the hospital, the patient did not have any chest pain. Initial blood pressure was 140/71 mmHg and heart rate of 80. A 12-lead electrocardiogram done in the emergency department showed atrial-paced rhythm at rate of [address] and T-wave abnormalities. The patient had negative troponin I level and sent to the telemetry for further evaluation and management. Cardiology consultation was made at the request of Dr. Lopez to assess and evaluate, admitted to telemetry unit. Cardiology consultation was made at the request of Dr. Lopez for evaluation and management of chest pain. PAST MEDICAL HISTORY: 1. History of hypertension. 2. History of dual-chamber pacemaker implantation. 3. History of bronchitis. 4. History of COPD. 5. History of liver disorder. 6. History of schizophrenia. 7. History of left hip replacement. PAST SURGICAL HISTORY: 1. Left hip replacement. 2. History of dual-chamber pacemaker implantation. SOCIAL HISTORY: Resident of a [facility]. Ex-smoker. Denies any alcohol or illicit drug use. ALLERGIES: No known drug allergies. MEDICATIONS: List [facility]: 1. Acetaminophen 650 mg q.4 h. p.r.n. fever, headache, mild pain. 2. Albuterol 3 mL INH q.6 h. p.r.n. shortness of breath. 3. Cogentin 1 mg p.o. twice daily. 4. Dulcolax 10 mg rectal daily p.r.n. constipation. 5. Colace 100 mg p.o. daily. 6. Gabapentin 300 mg nightly. 7. Motrin 400 mg four times a day. 8. Synthroid 50 mcg p.o. daily. 9. Lisinopril 20 mg p.o. daily. 10. Latuda 40 mg p.o. nightly. 11. Milk of magnesia 30 mL every three days p.r.n. constipation. 12. Fleet Enema 133 mL rectal every other day p.r.n. constipation. 13. K-Dur 20 mEq p.o. daily. 14. Senna mg p.o. nightly. REVIEW OF SYSTEMS: HEENT: Denies any headache, diplopia, or blurred vision. CONSTITUTIONAL: Denies any fever, chills, night sweats, or weight loss. CARDIOVASCULAR: Denies any chest pain at this time, however, chest pain was evident prior to arrival to this hospital and had some shortness of breath with it. Denies any PND, orthopnea, or leg swelling. PULMONARY: Denies any cough, hemoptysis, or wheezing. GASTROINTESTINAL: Denies any nausea, vomiting, diarrhea, constipation, abdominal pain, or GI bleed. GENITOURINARY: Denies any hematuria, dysuria, or incontinence. NEUROLOGIC: Denies any motor dysfunction, sensory deficit, or altered speech. PHYSICAL EXAMINATION: VITAL SIGNS: Blood pressure was 140/71, pulse of 80, respirations of 16, O2 saturation 100% on room air, and temperature 98.4 degrees Fahrenheit. GENERAL: The patient is a very morbidly obese 62-year-old gentleman, in no apparent respiratory distress. Alert and oriented x4. HEENT: Atraumatic and normocephalic. Anicteric. Pupils are equal, round, and reactive to light and accommodation. Extraocular muscles intact. NECK: JVP less than 5 cm. No carotid bruit. Carotid upstrokes 2+ bilaterally. CARDIOVASCULAR: Distant heart sounds. No murmurs, gallops, or rubs. PMI is at fourth intercostal space in the midclavicular line. LUNGS: Clear to auscultation bilaterally. ABDOMEN: Soft, nontender, and nondistended. No hepatosplenomegaly. Positive bowel sounds. EXTREMITIES: No evidence of edema, clubbing, or cyanosis. LABORATORY FINDINGS: Urine toxicology screen was negative. Chemistry showed sodium 141, potassium 4.2, chloride 105, bicarbonate 30, BUN 21, creatinine 0.8, glucose 102, and calcium 9.4. Troponin I x3 negative. ProBNP was 70. Triglyceride 98, cholesterol 131, LDL 83, and HDL of 35. INR is 1.0. WBC 12.2, hemoglobin of 16.3, hematocrit of 48.9, and platelet count 179,000. A chest x-ray showed dual-chamber pacemaker with no acute cardiopulmonary disease. ASSESSMENT AND PLAN: The patient is a very unfortunate 62-year-old gentleman, who was seen in Cardiology consultation. 1. Most likely noncardiac chest pain as the chest pain started in the right upper quadrant, right lower costal margin with radiation to the midsternal and to the left pericardial area, constant, no EKG changes on the 12-lead electrocardiogram, acute myocardial infarction is ruled out, the patient has not had any chest pain upon arrival to this facility. He did not respond to nitroglycerin initially. This is most likely musculoskeletal in origin or due to the patient's underlying anxiety. There is no indication for proceeding with cardiac stress test at this time. Primary CAD preventive measures will be done. 2. Dyslipidemia. 3. Dual-chamber pacemaker implantation, atrial-paced rhythm at this time. 4. History of hypertension. Continue lisinopril which is used at the nursing facility. I would like to thank Dr. Lopez and Dr. Rocael Valdez for allowing me to participate in care of this patient. Larry Avila M.D. DR: KERRY JOB#: [id number] CC:
--- NOTE | 2018-03-04 23:30 | NUR ---
NURSE NOTES: Called MD José Miguel.and left message regarding patients behavior, outbursts of screaming with no apparent reason. Awaiting call back and will continue plan of care. Will monitor for any further changes noted
--- NOTE | 2018-03-05 01:30 | NUR ---
NURSE NOTES: No call back from either José Miguel or Caitlyn, regarding patients disruptive behavior. CN aware, will endorse in the morning. Will continuously and closely monitor patient for any changes in condition.
--- NOTE | 2018-03-05 02:15 | NUR ---
NURSE NOTES: Patient awake with episodes of screaming and shouting, no S/S of distress at this time. Will continue to monitor
--- NOTE | 2018-03-05 06:30 | NUR ---
NURSE NOTES: New orders received and carried out. Will continue plan of care
[2018-03-05] MEDS ORDERED: LORazepam 1mg tab ORAL PRN (07:00)
--- NOTE | 2018-03-05 07:02 | NUR ---
HAND-OFF: Report given to Kevan Gaitan RN. Patient in bed asleep in stable condition, endorsed plan of care.
--- NOTE | 2018-03-05 07:30 | NUR ---
NURSE NOTES: Per night nurse pt has been screaming throughout the night, during assessment and rounding in the morning pt is no talkative, pt continues to yell and appears to be hallucinating as he was speaking to someone that was not there, Pt has remained unpredictable since yesterday with some aggressive bx like yelling and facial gestures and mood swings of being nice and cooperative to angry episodes, IV intact and patent, no s/s of distress or sob noted, pt maybe discharged soon back to [facility]. Md Wynne who is Dr Batista's psychologist came in to assess the pt recommended risperdal and ativan to Dr Batista, and he agreed per Night Nurse Jonel.
[2018-03-05] MEDS: Aspirin Baby 81mg ORAL SCH (08:15)
[2018-03-05] MEDS: Heparin 5000 units/ml inj SUBQ SCH ×2 (08:17→21:00)
--- NOTE | 2018-03-05 08:21 | Infectious Diseases Prog Note ---
Assessment/Plan Assessment/Plan Abx: None Assessment: Leukocytosis, SP- suspect reactive- no evidence of infectious process at present -u/a neg -CXR: No acute process Afebrile Chest pain -?etiology -trops neg x3 HTN bronchitis/asthma s/p pacemaker liver disease CAD HTN L hip replacement Gout hypothyroidism schizophrenia anxiety depression senior living resident Plan: -Continue to monitor off abx as clinically stable -f/u cx -Monitor CBC/CMP, temperatures Thank you for this consultation. Will continue to follow along with you. Subjective Allergies: Coded Allergies: No Known Allergies (Unverified , 08/06/17) Subjective Afebrile No leukocytosis Objective Vital Signs Last 24 Hour Vital Signs Date Time Temp Pulse Resp B/P (MAP) Pulse Ox O2 Delivery O2 Flow Rate FiO2 03/05/18 07:24 87 16 Room Air 21 03/05/18 04:00 60 03/05/18 04:00 03/05/18 00:00 60 03/04/18 21:22 91 20 Room Air 21 03/04/18 21:00 Room Air 03/04/18 20:00 60 03/04/18 20:00 97.7 60 18 99/50 (66) 94 03/04/18 17:23 128/70 03/04/18 16:00 97.9 70 20 128/70 (89) 95 03/04/18 15:50 60 03/04/18 12:00 97.0 78 20 134/102 (113) 96 03/04/18 11:22 76 03/04/18 08:30 Room Air Height (Feet): 5 Height (Inches): 11.00 Weight (Pounds): 290 Objective GENERAL: NAD CARDIOVASCULAR: RRR, No murmur. LUNGS: Distant and clear. ABDOMEN: Bowel sounds positive. Nontender. Nondistended. NEUROLOGIC: The patient moves all extremities, slightly weak. Current Medications Medications (Trade) Dose Ordered Sig/Aster Route PRN Reason Start Time Stop Time Status Last Admin Dose Admin Acetaminophen (Tylenol) 650 mg Q4H PRN ORAL FEVER 03/03/18 07:15 04/02/18 07:14 Albuterol/ Ipratropium (Albuterol/ Ipratropium) 3 ml Q4H PRN HHN Shortness of Breath 03/03/18 07:15 03/08/18 07:14 Aspirin (ASA) 162 mg DAILY ORAL 03/03/18 09:00 04/02/18 08:59 03/05/18 08:15 Diltiazem HCl (Cardizem) 10 mg Q1H PRN IV heart rate more than 120, 03/03/18 07:15 04/02/18 07:14 Enalaprilat (Vasotec) 2.5 mg Q6H PRN IV sbp more than 160 03/03/18 07:15 04/02/18 07:14 Gabapentin (Neurontin) 100 mg THREE TIMES A DAY ORAL 03/03/18 09:00 04/02/18 08:59 03/05/18 08:15 Heparin Sodium (Porcine) (Heparin 5000 units/ml) 5,000 units EVERY 12 HOURS SUBQ 03/03/18 09:00 04/02/18 08:59 03/04/18 21:29 Ketorolac Tromethamine (Toradol 30mg) 30 mg Q6H PRN IV moderate pain ( 4-6) 03/03/18 07:15 03/08/18 07:14 Levothyroxine Sodium (Synthroid) 50 mcg ACBREAKFAST ORAL 03/03/18 07:30 04/02/18 07:29 03/04/18 05:43 Lorazepam (Ativan) 1 mg Q6H PRN ORAL For Anxiety 03/05/18 07:00 03/12/18 06:59 03/05/18 08:15 Morphine Sulfate (Morphine Sulfate) 2 mg Q4H PRN IVP severe Pain (Pain Scale 7-10) 03/03/18 07:15 03/10/18 07:14 Nitroglycerin (Ntg) 0.4 mg Q5M PRN SL Prn Chest Pain 03/03/18 07:15 04/02/18 07:14 Ondansetron HCl (Zofran) 4 mg Q6H PRN IVP Nausea & Vomiting 03/03/18 07:15 04/02/18 07:14 Polyethylene Glycol (Miralax) 17 gm DAILYPRN PRN ORAL Constipation 03/03/18 07:15 04/02/18 07:14 Promethazine HCl/ Codeine (Phenergan with Codeine) 5 ml Q6H PRN ORAL For Cough 03/03/18 08:30 04/02/18 08:29 03/04/18 05:43 Risperidone (RisperDAL) 2 mg BID ORAL 03/05/18 09:00 04/04/18 08:59 03/05/18 08:16 Temazepam (Restoril) 15 mg HSPRN PRN ORAL Insomnia 03/03/18 07:15 03/10/18 07:14 Magan Soliman MD Mar 05, 2018 08:20
--- NOTE | 2018-03-05 09:05 | General Progress Note ---
Assessment/Plan Problem List: (1) Hypothyroid ICD Codes: E03.9 - Hypothyroidism, unspecified SNOMED: 70563863 (2) Asthma ICD Codes: J45.909 - Unspecified asthma, uncomplicated SNOMED: 849837378 (3) Chest pain ICD Codes: R07.9 - Chest pain, unspecified SNOMED: 71979033 (4) Schizophrenia ICD Codes: F20.9 - Schizophrenia, unspecified SNOMED: 22704354 Qualifiers: Qualified Codes: F20.9 - Schizophrenia, unspecified (5) Acute coronary syndrome ICD Codes: I24.9 - Acute ischemic heart disease, unspecified SNOMED: 762275333 Status: stable, progressing Assessment/Plan pt diet pain control cardio f/u cbc bmp am endo eval dc plan Subjective Constitutional: Reports: weakness Allergies: Coded Allergies: No Known Allergies (Unverified , 08/06/17) All Systems: reviewed and negative except above Subjective calm in bed Objective Last 24 Hour Vital Signs Date Time Temp Pulse Resp B/P (MAP) Pulse Ox O2 Delivery O2 Flow Rate FiO2 03/05/18 07:24 87 16 Room Air 21 03/05/18 04:00 60 03/05/18 04:00 03/05/18 00:00 60 03/04/18 21:22 91 20 Room Air 21 03/04/18 21:00 Room Air 03/04/18 20:00 60 03/04/18 20:00 97.7 60 18 99/50 (66) 94 03/04/18 17:23 128/70 03/04/18 16:00 97.9 70 20 128/70 (89) 95 03/04/18 15:50 60 03/04/18 12:00 97.0 78 20 134/102 (113) 96 03/04/18 11:22 76 Intake and Output 03/04/18 03/05/18 19:00 07:00 Intake Total 920 ml Output Total 850 ml 900 ml Balance 70 ml -900 ml Intake Oral 920 ml Output Urine Total 850 ml 900 ml Height (Feet): 5 Height (Inches): 11.00 Weight (Pounds): 290 General Appearance: lethargic EENT: normal ENT inspection Neck: normal alignment Cardiovascular: normal peripheral pulses, normal rate, regular rhythm Respiratory/Chest: chest wall non-tender, lungs clear, normal breath sounds Abdomen: normal bowel sounds, non tender, soft Extremities: normal inspection Edema: no edema noted Arm (L), no edema noted Arm (R), no edema noted Leg (L), no edema noted Leg (R), no edema noted Pedal (L), no edema noted Pedal (R), no edema noted Generalized Neurologic: motor weakness Skin: normal pigmentation, warm/dry Rocael Valdez DO Mar 05, 2018 09:05
--- NOTE | 2018-03-05 09:33 | Pulmonology Progress Note ---
Assessment/Plan Problems: (1) Acute coronary syndrome (2) Hypothyroid (3) Schizophrenia (4) Bipolar depression Assessment/Plan improving all reviewed symptomatic treatment f/u by psych f/u cardio recommendations continue current meds. Subjective ROS Limited/Unobtainable: No Constitutional: Reports: no symptoms HEENT: Repors: no symptoms Respiratory: Reports: no symptoms Cardiovascular: Reports: no symptoms Allergies: Coded Allergies: No Known Allergies (Unverified , 08/06/17) Objective Last 24 Hour Vital Signs Date Time Temp Pulse Resp B/P (MAP) Pulse Ox O2 Delivery O2 Flow Rate FiO2 03/05/18 07:24 87 16 Room Air 21 03/05/18 04:00 60 03/05/18 04:00 03/05/18 00:00 60 03/04/18 21:22 91 20 Room Air 21 03/04/18 21:00 Room Air 03/04/18 20:00 60 03/04/18 20:00 97.7 60 18 99/50 (66) 94 03/04/18 17:23 128/70 03/04/18 16:00 97.9 70 20 128/70 (89) 95 03/04/18 15:50 60 03/04/18 12:00 97.0 78 20 134/102 (113) 96 03/04/18 11:22 76 Intake and Output 03/04/18 03/05/18 18:59 06:59 Intake Total 920 ml Output Total 850 ml 900 ml Balance 70 ml -900 ml Intake Oral 920 ml Output Urine Total 850 ml 900 ml General Appearance: WD/WN HEENT: normocephalic Respiratory/Chest: chest wall non-tender, lungs clear, normal breath sounds Cardiovascular: normal peripheral pulses, normal rate Abdomen: normal bowel sounds, non distended Skin: no rash Current Medications Medications (Trade) Dose Ordered Sig/Aster Route PRN Reason Start Time Stop Time Status Last Admin Dose Admin Acetaminophen (Tylenol) 650 mg Q4H PRN ORAL FEVER 03/03/18 07:15 04/02/18 07:14 Albuterol/ Ipratropium (Albuterol/ Ipratropium) 3 ml Q4H PRN HHN Shortness of Breath 03/03/18 07:15 03/08/18 07:14 Aspirin (ASA) 162 mg DAILY ORAL 03/03/18 09:00 04/02/18 08:59 03/05/18 08:15 Diltiazem HCl (Cardizem) 10 mg Q1H PRN IV heart rate more than 120, 03/03/18 07:15 04/02/18 07:14 Enalaprilat (Vasotec) 2.5 mg Q6H PRN IV sbp more than 160 03/03/18 07:15 04/02/18 07:14 Gabapentin (Neurontin) 100 mg THREE TIMES A DAY ORAL 03/03/18 09:00 04/02/18 08:59 03/05/18 08:15 Heparin Sodium (Porcine) (Heparin 5000 units/ml) 5,000 units EVERY 12 HOURS SUBQ 03/03/18 09:00 04/02/18 08:59 03/04/18 21:29 Ketorolac Tromethamine (Toradol 30mg) 30 mg Q6H PRN IV moderate pain ( 4-6) 03/03/18 07:15 03/08/18 07:14 Levothyroxine Sodium (Synthroid) 50 mcg ACBREAKFAST ORAL 03/03/18 07:30 04/02/18 07:29 03/04/18 05:43 Lorazepam (Ativan) 1 mg Q6H PRN ORAL For Anxiety 03/05/18 07:00 03/12/18 06:59 03/05/18 08:15 Morphine Sulfate (Morphine Sulfate) 2 mg Q4H PRN IVP severe Pain (Pain Scale 7-10) 03/03/18 07:15 03/10/18 07:14 Nitroglycerin (Ntg) 0.4 mg Q5M PRN SL Prn Chest Pain 03/03/18 07:15 04/02/18 07:14 Ondansetron HCl (Zofran) 4 mg Q6H PRN IVP Nausea & Vomiting 03/03/18 07:15 04/02/18 07:14 Polyethylene Glycol (Miralax) 17 gm DAILYPRN PRN ORAL Constipation 03/03/18 07:15 04/02/18 07:14 Promethazine HCl/ Codeine (Phenergan with Codeine) 5 ml Q6H PRN ORAL For Cough 03/03/18 08:30 04/02/18 08:29 03/04/18 05:43 Risperidone (RisperDAL) 2 mg BID ORAL 03/05/18 09:00 04/04/18 08:59 03/05/18 08:16 Temazepam (Restoril) 15 mg HSPRN PRN ORAL Insomnia 03/03/18 07:15 03/10/18 07:14 Nicolas Brady MD Mar 05, 2018 09:33
--- NOTE | 2018-03-05 14:04 | NUR ---
PT note Attempted to see patient for treatment but patient refused. States, "Not today."
--- NOTE | 2018-03-05 19:40 | NUR ---
NURSE NOTES: Received pt. and report from BREANNA Walker. Observe pt. resting in bed. line runner is in placed, IV site is intact, asymptomatic, and patent. Bed is in the lowest position and locked, call light within reach. No chest pain or acute distress noted at this time. Will continue plan of care.
[2018-03-05 20:00] VITALS: BP 120/66
--- NOTE | 2018-03-05 23:00 | Consultation ---
DATE OF CONSULTATION: 03/05/2018 NOTE: "POOR AUDIO QUALITY" INITIAL PSYCHIATRIC EVALUATION CONSULTING PHYSICIAN: Tran Batista M.D. REFERRING PHYSICIAN: Rocael Valdez D.O. HISTORY OF PRESENT ILLNESS: This is a 62-year-old male patient with chest pain. He has extreme mood lability, agitation, and altered mental status worsened by stress of his medical illness. That is why, the attending has requested daily psychiatric consultation. I saw and assessed the patient at bedside today. He seemed to have intermittent bouts of confusion, agitation, and screaming behaviors intermittently throughout his hospital course and because of extreme mood lability and psychomotor agitation, this is the reason for daily psychiatric consultation to be requested for this patient. As far as this patient's psychomotor agitation and irritability, that is why he does require daily consultation at this point. PAST MEDICAL HISTORY: This patient does have medical history consisting of angina. He has chronic angina. He also has hyperlipidemia and per chart, he has neuropathy and difficulty with ambulation. As far as this patient's previous medical problems, please see Internal Medicine note for further details. ALLERGIES: He has no known drug allergies. SUBSTANCE ABUSE HISTORY: No known history of drug or alcohol use. Denies. PSYCHOTROPIC MEDICATIONS: Currently, the patient is on Neurontin 300 mg 3 times a day. PAIN ASSESSMENT: 0/10. DEVELOPMENTAL PROBLEMS: Denies. PSYCHIATRIC HISTORY: He has history of major depressive disorder, severe, recurrent with psychotic features, rule out paranoid schizophrenia, rule out dementia with psychosis. STRENGTHS: He is motivated to get better. He is healthy. WEAKNESSES: He is impulsive and no support system. SOCIAL HISTORY: He lives in [facility]. Financially supported by [facility] and Medicare. MENTAL STATUS EXAMINATION: This is a 62-year-old male. His appearance is disheveled. Attitude, irritable and agitated. Affect, guarded and restricted. Intellect poor because he does not know current events, does not know last 4 presidents. Mood, depressed and anxious. Motor activity, psychomotor agitation. Attention span is poor because he cannot do serial 7's or spell world backwards. Orientation x2, only oriented to person and place, not to time or situation. Speech is pressured. Thought process, disorganized and illogical. Thought content, auditory hallucinations and paranoid delusions. Insight and judgment is poor. DIAGNOSIS: Major depressive disorder, severe, recurrent with psychotic features, rule out dementia with psychosis. Medical problems include GERD and acute chest pain. Psychosis. PLAN: For this patient, I will treat him with Risperdal 2 mg twice a day, Ativan 1 mg every 6 hours for anxiety or agitation, Neurontin 300 mg three times a day. Provided him with 20 minutes of cognitive behavioral therapy to help him identify his automatic negative thoughts and help him convert those negative thoughts to more positive thoughts to reduce depression, anxiety, and suicidality. Twenty minutes of cognitive behavioral therapy. He will continue to be followed. Chart was reviewed and discussed with staff. Continue Risperdal 2 mg twice a day. Chart was reviewed and discussed with staff. He was seen and assessed in his room. I would like to thank Dr. Rocael Valdez for this interesting consultation. Tran Batista M.D. DR: Virgilio JOB#: [id number] CC:
[2018-03-06] VITALS: BP 120/70
[2018-03-06 04:00] VITALS: BP 130/72
--- NOTE | 2018-03-06 05:15 | Consultation ---
DATE OF CONSULTATION: 03/05/2018 NOTE: POOR AUDIO. PSYCHOTHERAPY CONSULTATION PROGRESS NOTE CONSULTING PHYSICIAN: Lance Rinaldi M.D. TREATING ATTENDING PHYSICIAN: Rocael Valdez D.O. HISTORY OF PRESENT ILLNESS: This patient is a 62-year-old male patient. The patient has history of schizophrenia. . The patient is yelling and screaming ____. The patient has thoughts of agitation and mood lability. The clinician assessed this patient today. The patient remains guarded, paranoid, and agitated. He states that he is not on medications. He has been very . He has very poor insight at this time. He has increased agitation and extremely paranoid at this time. He denies suicidal or homicidal thoughts of ideation. He denies auditory or visual hallucinations. However, he does appear internally preoccupied. MENTAL STATUS EXAMINATION: He is alert and oriented to person and place. Mood is irritable. Affect is guarded. Thought process is disorganized. Thought content, delusional. He has poor attention and concentration. Poor insight, judgment, and impulse control. PLAN: This clinician assessed the patient. Provided the patient with, 1. Reality orientation to help him improve function . The patient is disoriented. oriented to place, time, and situation. The patient is provided with psychotherapy. The patient is agitation ____ here in the hospital setting. 2. Provided the patient poor impulse control. . Positive coping skills and relaxation mood lability and anxiety. the patient has disoriented and delusional thoughts and provided him with thought processes. hospital setting. Continue with behavioral management. Continue with positive coping skills . Psychotherapy provided to this patient, 20 minutes. Lance Rinaldi PsyD. DR: JORGITO JOB#: [id number] CC:
--- NOTE | 2018-03-06 05:15 | Consultation ---
DATE OF CONSULTATION: 03/04/2018 NOTE: POOR AUDIO. PSYCHOTHERAPY CONSULTATION PROGRESS NOTE CONSULTING PHYSICIAN: Lance Rinaldi M.D. TREATING ATTENDING PHYSICIAN: Rocael Valdez D.O. HISTORY: This is a 62-year-old male patient . The patient has a history of schizophrenia. The patient is admitted to the hospital for intermittent chest pain, dizziness, and weakness. Since in the hospital, the patient has been very agitated, irritable, yelling, and screaming. For these reasons, the patient is referred for psychotherapeutic services. This clinician assessed this patient. The patient keeping to himself. He states that he has seen a psychiatrist in the past. He states that he has a history of schizophrenia. He states he feels tired admitting in the hospital . He just wants to go back to his nursing facility. He is extremely guarded, agitated . He denies suicidal or homicidal thoughts of ideation. He denies auditory or visual hallucinations . He is disorganized and slightly confused. He has poor frustration tolerance. PAST MEDICAL HISTORY: History of heart disease. ALLERGIES: The patient has no known drug allergies. SUBSTANCE ABUSE HISTORY: The patient has a history of occasional alcohol use. He does smoke cigarettes. Denies history of illicit substance use. PSYCHIATRIC HISTORY: This patient has a history of schizophrenia and has been treated with psychotropic medications in the past. SOCIAL HISTORY: The patient is a 62-year-old male. The patient is from [facility]. Financially sustained through [facility]. MENTAL STATUS EXAMINATION: The patient is alert and oriented to person and place. His mood is irritable. Affect is labile. Thought process, disorganized. Thought content is linear. He has poor attention and concentration. He has poor insight, judgment, and impulse control. ASSESSMENT: Today, this clinician assessed the patient. Provided the patient with, 1. Reality orientation, ____ cognitive function confused and disoriented oriented to person, place, time, and situation. Provided the patient with cognitive behavioral therapy helpless and poor impulse control. Providing the patient ____ relaxation, positive coping skills and not feeling appropriate depression. Encouraging the patient medication compliance positive thoughts and to provide the patient positive coping skills . DIAGNOSIS: Paranoid schizophrenia. FOLLOWUP: This clinician has reviewed the patient's chart. Discussed treatment with treatment staff. Psychotherapy provided to this patient, 50 minutes. Lance Rinaldi PsyD. DR: JORGITO JOB#: [id number] CC:
--- NOTE | 2018-03-06 07:20 | NUR ---
NURSE NOTES: I received the patient awake and resting in bed. Patient alert and oriented x4. Bed in the lowest position and call light within reach. I will continue to monitor the patient and implement care.
--- NOTE | 2018-03-06 07:46 | NUR ---
HAND-OFF: Report given to BREANNA Chino.
[2018-03-06 08:00] VITALS: BP 118/68
[2018-03-06 08:11] LABS: EOSINOPHILS % (AUTO) 3.8 % (0.0-3.0); HEMATOCRIT 49.3 % (42.0-52.0); HEMOGLOBIN 16.8 G/DL (14.2-18.0); LYMPHOCYTES % (AUTO) 27.4 % (20.0-45.0); MEAN CORPUSCULAR VOLUME 91 FL (80-99); NEUTROPHILS % (AUTO) 59.7 % (45.0-75.0); PLATELET COUNT 136 K/UL (150-450); RED BLOOD COUNT 5.44 M/UL (4.70-6.10); RED CELL DISTRIBUTION WIDTH 12.5 % (11.6-14.8); WHITE BLOOD COUNT 10.1 K/UL (4.8-10.8)
--- NOTE | 2018-03-06 08:15 | NUR ---
NURSE NOTES: Patient resting in bed. Patient awake and talkative. Patient educated about using the call light when he needs to get out of bed. Bed in the lowest position and call light within reach.
[2018-03-06] MEDS: Aspirin Baby 81mg ORAL SCH (08:21)
[2018-03-06] MEDS: Heparin 5000 units/ml inj SUBQ SCH ×2 (08:21→20:59)
[2018-03-06 08:36] LABS: ANION GAP 8 mmol/L (5-15); BLOOD UREA NITROGEN 20 mg/dL (7-18); CALCIUM 9.2 MG/DL (8.5-10.1); CARBON DIOXIDE 27 MMOL/L (21-32); CHLORIDE 104 MMOL/L (98-107); CREATININE 0.7 MG/DL (0.55-1.30); POTASSIUM 4.1 MMOL/L (3.5-5.1); SODIUM 139 MMOL/L (136-145)
--- NOTE | 2018-03-06 08:46 | General Progress Note ---
Assessment/Plan Problem List: (1) Hypothyroid ICD Codes: E03.9 - Hypothyroidism, unspecified SNOMED: 16444782 (2) Asthma ICD Codes: J45.909 - Unspecified asthma, uncomplicated SNOMED: 907584733 (3) Chest pain ICD Codes: R07.9 - Chest pain, unspecified SNOMED: 86539479 (4) Schizophrenia ICD Codes: F20.9 - Schizophrenia, unspecified SNOMED: 86338300 Qualifiers: Qualified Codes: F20.9 - Schizophrenia, unspecified (5) Acute coronary syndrome ICD Codes: I24.9 - Acute ischemic heart disease, unspecified SNOMED: 924302436 Status: stable, progressing Assessment/Plan pt diet pain control cardio f/u cbc bmp am endo eval dc plan Subjective Constitutional: Reports: weakness Allergies: Coded Allergies: No Known Allergies (Unverified , 08/06/17) All Systems: reviewed and negative except above Subjective calm in bed Objective Last 24 Hour Vital Signs Date Time Temp Pulse Resp B/P (MAP) Pulse Ox O2 Delivery O2 Flow Rate FiO2 03/06/18 08:40 Room Air Room Air 03/06/18 08:00 97.0 71 20 118/68 (85) 94 03/06/18 04:00 98.2 65 20 130/72 (91) 98 03/06/18 04:00 60 03/06/18 00:00 66 03/06/18 00:00 98.4 74 20 120/70 (87) 97 03/05/18 21:41 72 16 Room Air 21 03/05/18 21:00 Room Air Room Air 03/05/18 20:00 81 03/05/18 20:00 98.4 70 20 120/66 (84) 94 03/05/18 15:20 60 03/05/18 11:45 60 Intake and Output 03/05/18 03/06/18 19:00 07:00 Intake Total 480 ml Output Total 550 ml Balance -70 ml Intake Oral 480 ml Output Urine Total 550 ml Laboratory Tests 03/06/18 07:15: White Blood Count 10.1, Red Blood Count 5.44, Hemoglobin 16.8, Hematocrit 49.3, Mean Corpuscular Volume 91, Mean Corpuscular Hemoglobin 30.9, Mean Corpuscular Hemoglobin Concent 34.1, Red Cell Distribution Width 12.5, Platelet Count 136L, Mean Platelet Volume 9.8, Neutrophils (%) (Auto) 59.7, Lymphocytes (%) (Auto) 27.4, Monocytes (%) (Auto) 8.0, Eosinophils (%) (Auto) 3.8H, Basophils (%) (Auto ) 1.0, Sodium Level 139, Potassium Level 4.1, Chloride Level 104, Carbon Dioxide Level 27, Anion Gap 8, Blood Urea Nitrogen 20H, Creatinine 0.7, Estimat Glomerular Filtration Rate > 60, Glucose Level 111H, Calcium Level 9.2 Height (Feet): 5 Height (Inches): 11.00 Weight (Pounds): 290 General Appearance: lethargic EENT: normal ENT inspection Neck: normal alignment Cardiovascular: normal peripheral pulses, normal rate, regular rhythm Respiratory/Chest: chest wall non-tender, lungs clear, normal breath sounds Abdomen: normal bowel sounds, non tender, soft Extremities: normal inspection Edema: no edema noted Arm (L), no edema noted Arm (R), no edema noted Leg (L), no edema noted Leg (R), no edema noted Pedal (L), no edema noted Pedal (R), no edema noted Generalized Neurologic: motor weakness Skin: normal pigmentation, warm/dry Rocael Valdez DO Mar 06, 2018 08:46
--- NOTE | 2018-03-06 11:18 | Cardiology Report ---
APPROVED REPORT EKG Measurement Heart [id number] LA [id number] Normal sinus rhythm Normal ECG
[2018-03-06 11:43] VITALS: BP 138/67
--- NOTE | 2018-03-06 12:12 | Cardiology Report ---
APPROVED REPORT EXAM: Two-dimensional and M-mode echocardiogram with Doppler and color Doppler. INDICATION LV FUCNTION M-Mode DIMENSIONS IVSd1.4 (0.7-1.1cm)Left Atrium (MM)2.8 (1.6-4.0cm) LVDd3.7 (3.5-5.6cm)Aortic Root5.0 (2.0-3.7cm) PWd1.4 (0.7-1.1cm)Aortic Cusp Exc.2.1 (1.5-2.0cm) IVSs2.4 cm LVDs2.4 (2.5-4.0cm) PWs1.2 cm Technically difficult study due to Pts body habitus . Normal left ventricular chamber size, systolic function and wall motion to extent visualized. Left ventricular ejection fraction estimated to be 60-65 %. Study quality precludes accurate assessment of regional wall motion. No evidence left ventricular hypertrophy. Anterior Echo-free space, may be due to pericardial fat or effusion. Normal left atrial chamber size . Right cardiac chamber sizes are within upper normal limits. Focal aortic valve sclerosis with adequate cusp excursion. Thickened mitral valve leaflets with normal excursion. Mitral annulus and aortic root calcification. Pulmonic valve not well visualized. Normal tricuspid valve structure. IVC at normal size with physiological collapse . A color flow and spectral Doppler study was performed and revealed: No aortic insufficiency . Trace mitral regurgitation. Mitral inflow indicates normal left ventricular diastolic function. Trace tricuspid regurgitation. Tricuspid systolic velocities suggests peak right ventricular systolic pressure of 15 mmHg.
--- NOTE | 2018-03-06 12:26 | Pulmonology Progress Note ---
Assessment/Plan Problems: (1) Acute coronary syndrome (2) Hypothyroid (3) Schizophrenia (4) Bipolar depression Assessment/Plan dc planning in progress improving all reviewed symptomatic treatment f/u by psych f/u cardio recommendations continue current meds. Subjective ROS Limited/Unobtainable: No HEENT: Repors: no symptoms Respiratory: Reports: no symptoms Allergies: Coded Allergies: No Known Allergies (Unverified , 08/06/17) Objective Last 24 Hour Vital Signs Date Time Temp Pulse Resp B/P (MAP) Pulse Ox O2 Delivery O2 Flow Rate FiO2 03/06/18 11:43 98.1 64 20 138/67 (90) 93 03/06/18 08:40 Room Air Room Air 03/06/18 08:00 97.0 71 20 118/68 (85) 94 03/06/18 07:47 60 03/06/18 04:00 98.2 65 20 130/72 (91) 98 03/06/18 04:00 60 03/06/18 00:00 66 03/06/18 00:00 98.4 74 20 120/70 (87) 97 03/05/18 21:41 72 16 Room Air 21 03/05/18 21:00 Room Air Room Air 03/05/18 20:00 81 03/05/18 20:00 98.4 70 20 120/66 (84) 94 03/05/18 15:20 60 Intake and Output 03/05/18 03/06/18 18:59 06:59 Intake Total 480 ml Output Total 550 ml Balance -70 ml Intake Oral 480 ml Output Urine Total 550 ml General Appearance: WD/WN HEENT: normocephalic, atraumatic Respiratory/Chest: chest wall non-tender, lungs clear, normal breath sounds Cardiovascular: normal peripheral pulses, normal rate Abdomen: normal bowel sounds Genitourinary: normal external genitalia Extremities: no cyanosis 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 Lymphatic: no neck adenopathy Laboratory Tests 03/06/18 07:15: White Blood Count 10.1, Red Blood Count 5.44, Hemoglobin 16.8, Hematocrit 49.3, Mean Corpuscular Volume 91, Mean Corpuscular Hemoglobin 30.9, Mean Corpuscular Hemoglobin Concent 34.1, Red Cell Distribution Width 12.5, Platelet Count 136L, Mean Platelet Volume 9.8, Neutrophils (%) (Auto) 59.7, Lymphocytes (%) (Auto) 27.4, Monocytes (%) (Auto) 8.0, Eosinophils (%) (Auto) 3.8H, Basophils (%) (Auto ) 1.0, Sodium Level 139, Potassium Level 4.1, Chloride Level 104, Carbon Dioxide Level 27, Anion Gap 8, Blood Urea Nitrogen 20H, Creatinine 0.7, Estimat Glomerular Filtration Rate > 60, Glucose Level 111H, Calcium Level 9.2 Current Medications Medications (Trade) Dose Ordered Sig/Aster Route PRN Reason Start Time Stop Time Status Last Admin Dose Admin Acetaminophen (Tylenol) 650 mg Q4H PRN ORAL FEVER 03/03/18 07:15 04/02/18 07:14 Albuterol/ Ipratropium (Albuterol/ Ipratropium) 3 ml Q4H PRN HHN Shortness of Breath 03/03/18 07:15 03/08/18 07:14 Aspirin (ASA) 162 mg DAILY ORAL 03/03/18 09:00 04/02/18 08:59 03/06/18 08:21 Diltiazem HCl (Cardizem) 10 mg Q1H PRN IV heart rate more than 120, 03/03/18 07:15 04/02/18 07:14 Enalaprilat (Vasotec) 2.5 mg Q6H PRN IV sbp more than 160 03/03/18 07:15 04/02/18 07:14 Gabapentin (Neurontin) 100 mg THREE TIMES A DAY ORAL 03/03/18 09:00 04/02/18 08:59 03/06/18 08:21 Heparin Sodium (Porcine) (Heparin 5000 units/ml) 5,000 units EVERY 12 HOURS SUBQ 03/03/18 09:00 04/02/18 08:59 03/04/18 21:29 Ketorolac Tromethamine (Toradol 30mg) 30 mg Q6H PRN IV moderate pain ( 4-6) 03/03/18 07:15 03/08/18 07:14 Levothyroxine Sodium (Synthroid) 50 mcg ACBREAKFAST ORAL 03/03/18 07:30 04/02/18 07:29 03/06/18 06:21 Lorazepam (Ativan) 1 mg Q6H PRN ORAL For Anxiety 03/05/18 07:00 03/12/18 06:59 03/05/18 08:15 Morphine Sulfate (Morphine Sulfate) 2 mg Q4H PRN IVP severe Pain (Pain Scale 7-10) 03/03/18 07:15 03/10/18 07:14 Nitroglycerin (Ntg) 0.4 mg Q5M PRN SL Prn Chest Pain 03/03/18 07:15 04/02/18 07:14 Ondansetron HCl (Zofran) 4 mg Q6H PRN IVP Nausea & Vomiting 03/03/18 07:15 04/02/18 07:14 Polyethylene Glycol (Miralax) 17 gm DAILYPRN PRN ORAL Constipation 03/03/18 07:15 04/02/18 07:14 Promethazine HCl/ Codeine (Phenergan with Codeine) 5 ml Q6H PRN ORAL For Cough 03/03/18 08:30 04/02/18 08:29 03/04/18 05:43 Risperidone (RisperDAL) 2 mg BID ORAL 03/05/18 09:00 04/04/18 08:59 03/06/18 08:20 Temazepam (Restoril) 15 mg HSPRN PRN ORAL Insomnia 03/03/18 07:15 03/10/18 07:14 03/05/18 22:46 Nicolas Brady MD Mar 06, 2018 12:26
--- NOTE | 2018-03-06 14:45 | Consultation ---
DATE OF CONSULTATION: 03/06/2018 ENDOCRINOLOGY CONSULTATION: CONSULTING PHYSICIAN: Macario Varela M.D. REFERRING PHYSICIAN: Rocael Valdez D.O. REASON FOR CONSULTATION: Abnormal thyroid function. HISTORY OF PRESENT ILLNESS: The patient is a 62-year-old male morbidly obese with a past medical history of hypertension, schizophrenia, anxiety, depression who presented to the hospital with chief complaint of chest pain for several months, nonexertional. Paramedics have given nitroglycerin, aspirin upon arrival with some relief and the patient was admitted to the hospital to a telemetry bed. Seen by timber spotter. Thyroid function test was obtained as a part of the evaluation and was noted the TSH to be abnormal at 9.7. PAST MEDICAL HISTORY: 1. Hypertension. 2. Asthma. 3. Pacemaker placement. 4. Chronic GERD. 5. Liver disease. 6. Hypothyroidism. 7. Schizophrenia. MEDICATIONS: Reviewed and reconciled. ALLERGIES TO MEDICATIONS: None. SOCIAL HISTORY: Resides in a snf facility. No smoking, alcohol, or drug use. REVIEW OF SYSTEMS: As per HPI. PHYSICAL EXAMINATION: GENERAL: The patient is awake. VITAL SIGNS: Blood pressure 130/72, pulse 60, respiratory rate of 20, temperature 98.2. HEENT: Pupils are equal and reactive to light and accommodation. NECK: Difficult to palpate thyroid. Thick neck. HEART: Regular. LUNGS: Clear. ABDOMEN: Positive bowel sounds. Soft. EXTREMITIES: No clubbing, cyanosis. Positive for edema. DIAGNOSES: 1. Chest pain. 2. Hypothyroidism. 3. Morbid obesity. DISCUSSION: The patient's symptomatology has improved. Currently, the TSH is on the higher side on levothyroxine 25 mcg. The dosage of levothyroxine increased to 50 mcg daily. We will continue with the same. Repeat thyroid function should be repeated in 3 to 4 weeks for further adjustment. We will follow the patient. Thank you, Dr. Valdez, for the courtesy of this consultation. Macario Varela M.D. DR: SIMIN JOB#: [id number] CC: EARNESTINE
[2018-03-06 16:00] VITALS: BP 120/52
--- NOTE | 2018-03-06 19:18 | Cardiology Progress Note ---
Assessment/Plan Assessment/Plan 1. Most likely noncardiac chest pain no EKG changes on the 12-lead electrocardiogram, acute myocardial infarction is ruled out, no indication for proceeding with cardiac stress test at this time. Continue with primary CAD preventive measures. 2. Dyslipidemia with low HDL. 3. Dual-chamber pacemaker implantation, atrial-paced rhythm at this time. 4. History of hypertension, continue lisinopril. Subjective Subjective Sinus rhythm at rate of 84. Objective Last 24 Hour Vital Signs Date Time Temp Pulse Resp B/P (MAP) Pulse Ox O2 Delivery O2 Flow Rate FiO2 03/06/18 16:00 98.2 84 18 120/52 (74) 96 03/06/18 15:20 85 03/06/18 11:43 98.1 64 20 138/67 (90) 93 03/06/18 11:32 60 03/06/18 08:40 Room Air Room Air 03/06/18 08:00 97.0 71 20 118/68 (85) 94 03/06/18 07:47 60 03/06/18 04:00 98.2 65 20 130/72 (91) 98 03/06/18 04:00 60 03/06/18 00:00 66 03/06/18 00:00 98.4 74 20 120/70 (87) 97 03/05/18 21:41 72 16 Room Air 21 03/05/18 21:00 Room Air Room Air 03/05/18 20:00 81 03/05/18 20:00 98.4 70 20 120/66 (84) 94 Intake and Output 03/05/18 03/06/18 18:59 06:59 Intake Total 480 ml Output Total 550 ml Balance -70 ml Intake Oral 480 ml Output Urine Total 550 ml 2D Echo: LVEF 65%, RVSP 15 mmHg Laboratory Tests Test 03/06/18 07:15 White Blood Count 10.1 K/UL (4.8-10.8) Red Blood Count 5.44 M/UL (4.70-6.10) Hemoglobin 16.8 G/DL (14.2-18.0) Hematocrit 49.3 % (42.0-52.0) Mean Corpuscular Volume 91 FL (80-99) Mean Corpuscular Hemoglobin 30.9 PG (27.0-31.0) Mean Corpuscular Hemoglobin Concent 34.1 G/DL (32.0-36.0) Red Cell Distribution Width 12.5 % (11.6-14.8) Platelet Count 136 K/UL (150-450) L Mean Platelet Volume 9.8 FL (6.5-10.1) Neutrophils (%) (Auto) 59.7 % (45.0-75.0) Lymphocytes (%) (Auto) 27.4 % (20.0-45.0) Monocytes (%) (Auto) 8.0 % (1.0-10.0) Eosinophils (%) (Auto) 3.8 % (0.0-3.0) H Basophils (%) (Auto) 1.0 % (0.0-2.0) Sodium Level 139 MMOL/L (136-145) Potassium Level 4.1 MMOL/L (3.5-5.1) Chloride Level 104 MMOL/L (98-107) Carbon Dioxide Level 27 MMOL/L (21-32) Anion Gap 8 mmol/L (5-15) Blood Urea Nitrogen 20 mg/dL (7-18) H Creatinine 0.7 MG/DL (0.55-1.30) Estimat Glomerular Filtration Rate > 60 mL/min (>60) Glucose Level 111 MG/DL (74-106) H Calcium Level 9.2 MG/DL (8.5-10.1) Larry Avila MD Mar 06, 2018 19:18
--- NOTE | 2018-03-06 19:22 | NUR ---
HAND-OFF: Report given to BREANNA Garcia.
--- NOTE | 2018-03-06 19:30 | NUR ---
NURSE NOTES: Report received from Joey Eldridge RN. Pt is sitting up at bedside in stable condition. Pt is awake, alert, and oriented x4. Pt is on room air and breathing is even and unlabored. No acute distress noted. IV site is asymptomatic, patent, and intact. Bed is in lowest position with brake engaged, side rails up x2. Call light and side table placed within reach. Will continue to monitor.
[2018-03-06 20:00] VITALS: BP 124/72
--- NOTE | 2018-03-06 21:30 | Progress Note ---
DATE: 03/06/2018 SUBJECTIVE: The patient is a 62-year-old male patient with chest pain. This is a patient, who is a 62-year-old male, still very depressed and confused. His mood labile. He has no logical plan for his own self-care. He has got feelings of helplessness, hopelessness, low energy, poor appetite, and loss of interest in activity. That is why he does require inpatient treatment at this time. Subsequently he developed of interest in activity and that is why he does require inpatient treatment at this time. However, he does require daily psychiatric consultation. MENTAL STATUS EXAMINATION: A 62-year-old male. Appearance is disheveled. Attitude, irritable and agitated. Affect, guarded and restricted. Intellect poor. Mood depressed and anxious. Motor activity, psychomotor agitation. Attention span is poor. Orientation x2. Speech is pressured. Thought process, disorganized and illogical. Thought content, auditory hallucinations and paranoid delusions. Insight and judgment is poor. DIAGNOSIS: Paranoid schizophrenia, acute exacerbation. PLAN: Treat him with Risperdal 2 mg twice a day. Provide him with 20 minutes of cognitive behavioral therapy and help the patient to identify his automatic negative thoughts and help to convert those negative thoughts to more positive thoughts to reduce depression, anxiety, and suicidality. Chart reviewed and discussed with staff. Seen and assessed in room. A 20 minutes of supportive psychotherapy provided. I encouraged him to interact appropriately with staff and other patients. Continue on Risperdal 2 mg twice a day. Tran Batista M.D. DR: Kathleen JOB#: [id number] CC:
[2018-03-07] VITALS: BP 136/73
[2018-03-07 04:00] VITALS: BP 129/75
--- NOTE | 2018-03-07 06:33 | General Progress Note ---
Assessment/Plan Problem List: (1) Schizophrenia ICD Codes: F20.9 - Schizophrenia, unspecified SNOMED: 76810106 Qualifiers: Qualified Codes: F20.9 - Schizophrenia, unspecified (2) Bilateral leg edema ICD Codes: R60.0 - Localized edema SNOMED: 250382659, 10968486, 43279606 (3) Hypothyroid ICD Codes: E03.9 - Hypothyroidism, unspecified SNOMED: 99679883 Assessment/Plan continue Levothyroxine 50 mcg daily repeat thyroid function in 4 weeks Subjective Allergies: Coded Allergies: No Known Allergies (Unverified , 08/06/17) All Systems: reviewed and negative except above Subjective events noted Objective Last 24 Hour Vital Signs Date Time Temp Pulse Resp B/P (MAP) Pulse Ox O2 Delivery O2 Flow Rate FiO2 03/07/18 04:00 73 03/07/18 04:00 97.8 77 18 129/75 (93) 94 03/07/18 00:00 70 03/07/18 00:00 98.0 78 19 136/73 (94) 94 03/06/18 21:00 Room Air Room Air 03/06/18 20:00 85 03/06/18 20:00 98.4 80 19 124/72 (89) 95 03/06/18 19:42 76 18 Room Air 21 03/06/18 16:00 98.2 84 18 120/52 (74) 96 03/06/18 15:20 85 03/06/18 11:43 98.1 64 20 138/67 (90) 93 03/06/18 11:32 60 03/06/18 08:40 Room Air Room Air 03/06/18 08:00 97.0 71 20 118/68 (85) 94 03/06/18 07:47 60 Intake and Output 03/06/18 03/07/18 19:00 07:00 Intake Total 1150 ml 480 ml Output Total 700 ml 450 ml Balance 450 ml 30 ml Intake Oral 1150 ml 480 ml Output Urine Total 700 ml 450 ml # Voids 4 # Bowel Movements 1 Laboratory Tests 03/06/18 07:15: White Blood Count 10.1, Red Blood Count 5.44, Hemoglobin 16.8, Hematocrit 49.3, Mean Corpuscular Volume 91, Mean Corpuscular Hemoglobin 30.9, Mean Corpuscular Hemoglobin Concent 34.1, Red Cell Distribution Width 12.5, Platelet Count 136L, Mean Platelet Volume 9.8, Neutrophils (%) (Auto) 59.7, Lymphocytes (%) (Auto) 27.4, Monocytes (%) (Auto) 8.0, Eosinophils (%) (Auto) 3.8H, Basophils (%) (Auto ) 1.0, Sodium Level 139, Potassium Level 4.1, Chloride Level 104, Carbon Dioxide Level 27, Anion Gap 8, Blood Urea Nitrogen 20H, Creatinine 0.7, Estimat Glomerular Filtration Rate > 60, Glucose Level 111H, Calcium Level 9.2 Height (Feet): 5 Height (Inches): 11.00 Weight (Pounds): 290 General Appearance: no apparent distress Neck: normal alignment Cardiovascular: normal rate Respiratory/Chest: normal breath sounds Objective Current Medications Medications (Trade) Dose Ordered Sig/Aster Route PRN Reason Start Time Stop Time Status Last Admin Dose Admin Acetaminophen (Tylenol) 650 mg Q4H PRN ORAL FEVER 03/03/18 07:15 04/02/18 07:14 Albuterol/ Ipratropium (Albuterol/ Ipratropium) 3 ml Q4H PRN HHN Shortness of Breath 03/03/18 07:15 03/08/18 07:14 Aspirin (ASA) 162 mg DAILY ORAL 03/03/18 09:00 04/02/18 08:59 03/06/18 08:21 Diltiazem HCl (Cardizem) 10 mg Q1H PRN IV heart rate more than 120, 03/03/18 07:15 04/02/18 07:14 Enalaprilat (Vasotec) 2.5 mg Q6H PRN IV sbp more than 160 03/03/18 07:15 04/02/18 07:14 Gabapentin (Neurontin) 100 mg THREE TIMES A DAY ORAL 03/03/18 09:00 04/02/18 08:59 03/06/18 17:04 Heparin Sodium (Porcine) (Heparin 5000 units/ml) 5,000 units EVERY 12 HOURS SUBQ 03/03/18 09:00 04/02/18 08:59 03/06/18 20:59 Ketorolac Tromethamine (Toradol 30mg) 30 mg Q6H PRN IV moderate pain ( 4-6) 03/03/18 07:15 03/08/18 07:14 Levothyroxine Sodium (Synthroid) 50 mcg ACBREAKFAST ORAL 03/03/18 07:30 04/02/18 07:29 03/07/18 05:33 Lorazepam (Ativan) 1 mg Q6H PRN ORAL For Anxiety 03/05/18 07:00 03/12/18 06:59 03/05/18 08:15 Morphine Sulfate (Morphine Sulfate) 2 mg Q4H PRN IVP severe Pain (Pain Scale 7-10) 03/03/18 07:15 03/10/18 07:14 03/06/18 21:45 Nitroglycerin (Ntg) 0.4 mg Q5M PRN SL Prn Chest Pain 03/03/18 07:15 04/02/18 07:14 Ondansetron HCl (Zofran) 4 mg Q6H PRN IVP Nausea & Vomiting 03/03/18 07:15 04/02/18 07:14 Polyethylene Glycol (Miralax) 17 gm DAILYPRN PRN ORAL Constipation 03/03/18 07:15 04/02/18 07:14 Promethazine HCl/ Codeine (Phenergan with Codeine) 5 ml Q6H PRN ORAL For Cough 03/03/18 08:30 04/02/18 08:29 03/04/18 05:43 Risperidone (RisperDAL) 2 mg BID ORAL 03/05/18 09:00 04/04/18 08:59 03/06/18 17:04 Temazepam (Restoril) 15 mg HSPRN PRN ORAL Insomnia 03/03/18 07:15 03/10/18 07:14 03/06/18 21:00 Macario Varela MD Mar 07, 2018 06:33
--- NOTE | 2018-03-07 07:10 | NUR ---
HAND-OFF: Report given to Joey Eldridge RN. Pt is resting in bed in stable condition. No acute distress noted. Endorsed plan of care.
--- NOTE | 2018-03-07 07:15 | NUR ---
NURSE NOTES: I received the patient resting in bed. Patient awakes to name. Bed in the lowest position and call light within reach. Patient does not display any signs of distress or SOB. I will continue to monitor the patient and implement care.
[2018-03-07 07:39] LABS: BASOPHILS % (AUTO) 0.9 % (0.0-2.0); EOSINOPHILS % (AUTO) 3.3 % (0.0-3.0); HEMATOCRIT 51.6 % (42.0-52.0); HEMOGLOBIN 17.1 G/DL (14.2-18.0); LYMPHOCYTES % (AUTO) 27.6 % (20.0-45.0); MEAN CORPUSCULAR VOLUME 91 FL (80-99); MONOCYTES % (AUTO) 9.6 % (1.0-10.0); NEUTROPHILS % (AUTO) 58.7 % (45.0-75.0); PLATELET COUNT 163 K/UL (150-450); RED BLOOD COUNT 5.68 M/UL (4.70-6.10); RED CELL DISTRIBUTION WIDTH 12.5 % (11.6-14.8); WHITE BLOOD COUNT 9.6 K/UL (4.8-10.8)
--- NOTE | 2018-03-07 07:45 | Progress Note ---
DATE: 03/07/2018 SUBJECTIVE: This is a 62-year-old male patient with chest pain, but he has agitation, irritability, and mood lability, worsened by stress of his medical illness. That is why, attending has requested daily psychiatric consultation. MENTAL STATUS EXAMINATION: This is a 62-year-old male. Appearance is disheveled. Attitude, irritable and agitated. Affect, guarded and restricted. Intellect poor. Mood, depressed and anxious. Motor activity, psychomotor agitation. Attention span is poor. Orientation x2. Speech is pressured. Thought process is disorganized and illogical. Thought content, no auditory hallucinations or paranoid delusions. Insight judgment is poor. DIAGNOSIS: Paranoid schizophrenia, major depressive disorder, mild, recurrent with psychotic features. PLAN: Continue him on Risperdal to help reduce agitation and stabilize his mood. Provide him with 20 minutes of cognitive behavioral therapy and help the patient to identify his automatic negative thoughts and help to convert those negative thoughts to more positive thoughts. Chart reviewed and discussed with staff. Seen and assessed at bedside. Tran Batista M.D. DR: RAMSES JOB#: [id number] CC:
[2018-03-07 08:00] VITALS: BP 128/73
[2018-03-07 08:04] LABS: ANION GAP 9 mmol/L (5-15); BLOOD UREA NITROGEN 16 mg/dL (7-18); CALCIUM 9.3 MG/DL (8.5-10.1); CARBON DIOXIDE 25 MMOL/L (21-32); CHLORIDE 101 MMOL/L (98-107); CREATININE 0.6 MG/DL (0.55-1.30); POTASSIUM 4.1 MMOL/L (3.5-5.1); SODIUM 135 MMOL/L (136-145)
[2018-03-07] MEDS: Aspirin Baby 81mg ORAL SCH (08:10)
[2018-03-07] MEDS: Heparin 5000 units/ml inj SUBQ SCH (08:11)
--- NOTE | 2018-03-07 09:09 | Infectious Diseases Prog Note ---
Assessment/Plan Assessment/Plan Abx: None Assessment: Leukocytosis, SP- suspect reactive- no evidence of infectious process at present -u/a neg -CXR: No acute process Afebrile Chest pain -?etiology -trops neg x3 HTN bronchitis/asthma s/p pacemaker liver disease CAD HTN L hip replacement Gout hypothyroidism schizophrenia anxiety depression [facility] Plan: -Monitor off abx as clinically stable -Monitor CBC/CMP, temperatures Thank you for this consultation. Will continue to follow along with you. Subjective Allergies: Coded Allergies: No Known Allergies (Unverified , 08/06/17) Subjective SILVINA Afebrile No leukocytosis Objective Vital Signs Last 24 Hour Vital Signs Date Time Temp Pulse Resp B/P (MAP) Pulse Ox O2 Delivery O2 Flow Rate FiO2 03/07/18 08:00 97.3 72 20 128/73 (91) 93 03/07/18 04:00 73 03/07/18 04:00 97.8 77 18 129/75 (93) 94 03/07/18 00:00 70 03/07/18 00:00 98.0 78 19 136/73 (94) 94 03/06/18 21:00 Room Air Room Air 03/06/18 20:00 85 03/06/18 20:00 98.4 80 19 124/72 (89) 95 03/06/18 19:42 76 18 Room Air 21 03/06/18 16:00 98.2 84 18 120/52 (74) 96 03/06/18 15:20 85 03/06/18 11:43 98.1 64 20 138/67 (90) 93 03/06/18 11:32 60 Height (Feet): 5 Height (Inches): 11.00 Weight (Pounds): 290 Objective GENERAL: NAD, Satting well on RA CARDIOVASCULAR: RRR, No murmur. LUNGS: Distant and clear. ABDOMEN: Bowel sounds positive. Nontender. Nondistended. NEUROLOGIC: The patient moves all extremities, slightly weak. Laboratory Tests Test 03/07/18 05:51 White Blood Count 9.6 K/UL (4.8-10.8) Red Blood Count 5.68 M/UL (4.70-6.10) Hemoglobin 17.1 G/DL (14.2-18.0) Hematocrit 51.6 % (42.0-52.0) Mean Corpuscular Volume 91 FL (80-99) Mean Corpuscular Hemoglobin 30.1 PG (27.0-31.0) Mean Corpuscular Hemoglobin Concent 33.1 G/DL (32.0-36.0) Red Cell Distribution Width 12.5 % (11.6-14.8) Platelet Count 163 K/UL (150-450) Mean Platelet Volume 9.6 FL (6.5-10.1) Neutrophils (%) (Auto) 58.7 % (45.0-75.0) Lymphocytes (%) (Auto) 27.6 % (20.0-45.0) Monocytes (%) (Auto) 9.6 % (1.0-10.0) Eosinophils (%) (Auto) 3.3 % (0.0-3.0) H Basophils (%) (Auto) 0.9 % (0.0-2.0) Sodium Level 135 MMOL/L (136-145) L Potassium Level 4.1 MMOL/L (3.5-5.1) Chloride Level 101 MMOL/L (98-107) Carbon Dioxide Level 25 MMOL/L (21-32) Anion Gap 9 mmol/L (5-15) Blood Urea Nitrogen 16 mg/dL (7-18) Creatinine 0.6 MG/DL (0.55-1.30) Estimat Glomerular Filtration Rate > 60 mL/min (>60) Glucose Level 98 MG/DL (74-106) Calcium Level 9.3 MG/DL (8.5-10.1) Current Medications Medications (Trade) Dose Ordered Sig/Aster Route PRN Reason Start Time Stop Time Status Last Admin Dose Admin Acetaminophen (Tylenol) 650 mg Q4H PRN ORAL FEVER 03/03/18 07:15 04/02/18 07:14 Albuterol/ Ipratropium (Albuterol/ Ipratropium) 3 ml Q4H PRN HHN Shortness of Breath 03/03/18 07:15 03/08/18 07:14 Aspirin (ASA) 162 mg DAILY ORAL 03/03/18 09:00 04/02/18 08:59 03/07/18 08:10 Diltiazem HCl (Cardizem) 10 mg Q1H PRN IV heart rate more than 120, 03/03/18 07:15 04/02/18 07:14 Enalaprilat (Vasotec) 2.5 mg Q6H PRN IV sbp more than 160 03/03/18 07:15 04/02/18 07:14 Gabapentin (Neurontin) 100 mg THREE TIMES A DAY ORAL 03/03/18 09:00 04/02/18 08:59 03/07/18 08:10 Heparin Sodium (Porcine) (Heparin 5000 units/ml) 5,000 units EVERY 12 HOURS SUBQ 03/03/18 09:00 04/02/18 08:59 03/07/18 08:11 Ketorolac Tromethamine (Toradol 30mg) 30 mg Q6H PRN IV moderate pain ( 4-6) 03/03/18 07:15 03/08/18 07:14 Levothyroxine Sodium (Synthroid) 50 mcg ACBREAKFAST ORAL 03/03/18 07:30 04/02/18 07:29 03/07/18 05:33 Lorazepam (Ativan) 1 mg Q6H PRN ORAL For Anxiety 03/05/18 07:00 03/12/18 06:59 03/05/18 08:15 Morphine Sulfate (Morphine Sulfate) 2 mg Q4H PRN IVP severe Pain (Pain Scale 7-10) 03/03/18 07:15 03/10/18 07:14 03/06/18 21:45 Nitroglycerin (Ntg) 0.4 mg Q5M PRN SL Prn Chest Pain 03/03/18 07:15 04/02/18 07:14 Ondansetron HCl (Zofran) 4 mg Q6H PRN IVP Nausea & Vomiting 03/03/18 07:15 04/02/18 07:14 Polyethylene Glycol (Miralax) 17 gm DAILYPRN PRN ORAL Constipation 03/03/18 07:15 04/02/18 07:14 Promethazine HCl/ Codeine (Phenergan with Codeine) 5 ml Q6H PRN ORAL For Cough 03/03/18 08:30 04/02/18 08:29 03/04/18 05:43 Risperidone (RisperDAL) 2 mg BID ORAL 03/05/18 09:00 04/04/18 08:59 03/07/18 08:10 Temazepam (Restoril) 15 mg HSPRN PRN ORAL Insomnia 03/03/18 07:15 03/10/18 07:14 03/06/18 21:00 Magan Soliman MD Mar 07, 2018 09:08
--- NOTE | 2018-03-07 11:44 | NUR ---
Social Work This Sw met with to discuss transfer back to [facility] (informed there are no other accepting nursing homes). Patient stating he is in agreement with transferring back there today.
[2018-03-07 11:50] VITALS: BP 129/89
--- NOTE | 2018-03-07 12:39 | Pulmonology Progress Note ---
Assessment/Plan Problems: (1) Acute coronary syndrome (2) Hypothyroid (3) Schizophrenia (4) Bipolar depression Assessment/Plan improving all reviewed symptomatic treatment f/u by psych f/u cardio recommendations continue current meds. Subjective ROS Limited/Unobtainable: No Constitutional: Reports: no symptoms HEENT: Repors: no symptoms Respiratory: Reports: no symptoms Allergies: Coded Allergies: No Known Allergies (Unverified , 08/06/17) Objective Last 24 Hour Vital Signs Date Time Temp Pulse Resp B/P (MAP) Pulse Ox O2 Delivery O2 Flow Rate FiO2 03/07/18 11:50 96.7 76 20 129/89 (102) 95 03/07/18 09:06 73 19 Room Air 21 03/07/18 09:00 Room Air Room Air 03/07/18 08:00 97.3 72 20 128/73 (91) 93 03/07/18 07:21 70 03/07/18 04:00 73 03/07/18 04:00 97.8 77 18 129/75 (93) 94 03/07/18 00:00 70 03/07/18 00:00 98.0 78 19 136/73 (94) 94 03/06/18 21:00 Room Air Room Air 03/06/18 20:00 85 03/06/18 20:00 98.4 80 19 124/72 (89) 95 03/06/18 19:42 76 18 Room Air 21 03/06/18 16:00 98.2 84 18 120/52 (74) 96 03/06/18 15:20 85 Intake and Output 03/06/18 03/07/18 19:00 07:00 Intake Total 1150 ml 480 ml Output Total 700 ml 450 ml Balance 450 ml 30 ml Intake Oral 1150 ml 480 ml Output Urine Total 700 ml 450 ml # Voids 4 # Bowel Movements 1 General Appearance: WD/WN HEENT: normocephalic, atraumatic Respiratory/Chest: chest wall non-tender, normal breath sounds Cardiovascular: normal peripheral pulses, normal rate Abdomen: normal bowel sounds Genitourinary: normal external genitalia 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 Laboratory Tests 03/07/18 05:51: White Blood Count 9.6, Red Blood Count 5.68, Hemoglobin 17.1, Hematocrit 51.6, Mean Corpuscular Volume 91, Mean Corpuscular Hemoglobin 30.1, Mean Corpuscular Hemoglobin Concent 33.1, Red Cell Distribution Width 12.5, Platelet Count 163, Mean Platelet Volume 9.6, Neutrophils (%) (Auto) 58.7, Lymphocytes (%) (Auto) 27.6, Monocytes (%) (Auto) 9.6, Eosinophils (%) (Auto) 3.3H, Basophils (%) (Auto ) 0.9, Sodium Level 135L, Potassium Level 4.1, Chloride Level 101, Carbon Dioxide Level 25, Anion Gap 9, Blood Urea Nitrogen 16, Creatinine 0.6, Estimat Glomerular Filtration Rate > 60, Glucose Level 98, Calcium Level 9.3 Current Medications Medications (Trade) Dose Ordered Sig/Aster Route PRN Reason Start Time Stop Time Status Last Admin Dose Admin Acetaminophen (Tylenol) 650 mg Q4H PRN ORAL FEVER 03/03/18 07:15 04/02/18 07:14 Albuterol/ Ipratropium (Albuterol/ Ipratropium) 3 ml Q4H PRN HHN Shortness of Breath 03/03/18 07:15 03/08/18 07:14 Aspirin (ASA) 162 mg DAILY ORAL 03/03/18 09:00 04/02/18 08:59 03/07/18 08:10 Diltiazem HCl (Cardizem) 10 mg Q1H PRN IV heart rate more than 120, 03/03/18 07:15 04/02/18 07:14 Enalaprilat (Vasotec) 2.5 mg Q6H PRN IV sbp more than 160 03/03/18 07:15 04/02/18 07:14 Gabapentin (Neurontin) 100 mg THREE TIMES A DAY ORAL 03/03/18 09:00 04/02/18 08:59 03/07/18 12:02 Heparin Sodium (Porcine) (Heparin 5000 units/ml) 5,000 units EVERY 12 HOURS SUBQ 03/03/18 09:00 04/02/18 08:59 03/07/18 08:11 Ketorolac Tromethamine (Toradol 30mg) 30 mg Q6H PRN IV moderate pain ( 4-6) 03/03/18 07:15 03/08/18 07:14 Levothyroxine Sodium (Synthroid) 50 mcg ACBREAKFAST ORAL 03/03/18 07:30 04/02/18 07:29 03/07/18 05:33 Lorazepam (Ativan) 1 mg Q6H PRN ORAL For Anxiety 03/05/18 07:00 03/12/18 06:59 03/05/18 08:15 Morphine Sulfate (Morphine Sulfate) 2 mg Q4H PRN IVP severe Pain (Pain Scale 7-10) 03/03/18 07:15 03/10/18 07:14 03/06/18 21:45 Nitroglycerin (Ntg) 0.4 mg Q5M PRN SL Prn Chest Pain 03/03/18 07:15 04/02/18 07:14 Ondansetron HCl (Zofran) 4 mg Q6H PRN IVP Nausea & Vomiting 03/03/18 07:15 04/02/18 07:14 Polyethylene Glycol (Miralax) 17 gm DAILYPRN PRN ORAL Constipation 03/03/18 07:15 04/02/18 07:14 Promethazine HCl/ Codeine (Phenergan with Codeine) 5 ml Q6H PRN ORAL For Cough 03/03/18 08:30 04/02/18 08:29 03/04/18 05:43 Risperidone (RisperDAL) 2 mg BID ORAL 03/05/18 09:00 04/04/18 08:59 03/07/18 08:10 Temazepam (Restoril) 15 mg HSPRN PRN ORAL Insomnia 03/03/18 07:15 03/10/18 07:14 03/06/18 21:00 Nicolas Brady MD Mar 07, 2018 12:39
--- NOTE | 2018-03-07 13:05 | NUR ---
Social Service Note SW akin Henry at [facility] [phone] ([phone] (f) of impending dc plan for today. Referral faxed. Awaiting official order from Dr. Valdez.
--- NOTE | 2018-03-07 14:01 | General Progress Note ---
Assessment/Plan Problem List: (1) Hypothyroid ICD Codes: E03.9 - Hypothyroidism, unspecified SNOMED: 05477284 (2) Asthma ICD Codes: J45.909 - Unspecified asthma, uncomplicated SNOMED: 815255179 (3) Chest pain ICD Codes: R07.9 - Chest pain, unspecified SNOMED: 69058878 (4) Schizophrenia ICD Codes: F20.9 - Schizophrenia, unspecified SNOMED: 44943977 Qualifiers: Qualified Codes: F20.9 - Schizophrenia, unspecified (5) Acute coronary syndrome ICD Codes: I24.9 - Acute ischemic heart disease, unspecified SNOMED: 750025396 Status: stable, progressing Assessment/Plan pt diet pain control cardio f/u dc if clear Subjective Constitutional: Reports: weakness Allergies: Coded Allergies: No Known Allergies (Unverified , 08/06/17) All Systems: reviewed and negative except above Subjective calm in bed Objective Last 24 Hour Vital Signs Date Time Temp Pulse Resp B/P (MAP) Pulse Ox O2 Delivery O2 Flow Rate FiO2 03/07/18 11:50 96.7 76 20 129/89 (102) 95 03/07/18 11:33 81 03/07/18 09:06 73 19 Room Air 21 03/07/18 09:00 Room Air Room Air 03/07/18 08:00 97.3 72 20 128/73 (91) 93 03/07/18 07:21 70 03/07/18 04:00 73 03/07/18 04:00 97.8 77 18 129/75 (93) 94 03/07/18 00:00 70 03/07/18 00:00 98.0 78 19 136/73 (94) 94 03/06/18 21:00 Room Air Room Air 03/06/18 20:00 85 03/06/18 20:00 98.4 80 19 124/72 (89) 95 03/06/18 19:42 76 18 Room Air 21 03/06/18 16:00 98.2 84 18 120/52 (74) 96 03/06/18 15:20 85 Intake and Output 03/06/18 03/07/18 19:00 07:00 Intake Total 1150 ml 480 ml Output Total 700 ml 450 ml Balance 450 ml 30 ml Intake Oral 1150 ml 480 ml Output Urine Total 700 ml 450 ml # Voids 4 # Bowel Movements 1 Laboratory Tests 03/07/18 05:51: White Blood Count 9.6, Red Blood Count 5.68, Hemoglobin 17.1, Hematocrit 51.6, Mean Corpuscular Volume 91, Mean Corpuscular Hemoglobin 30.1, Mean Corpuscular Hemoglobin Concent 33.1, Red Cell Distribution Width 12.5, Platelet Count 163, Mean Platelet Volume 9.6, Neutrophils (%) (Auto) 58.7, Lymphocytes (%) (Auto) 27.6, Monocytes (%) (Auto) 9.6, Eosinophils (%) (Auto) 3.3H, Basophils (%) (Auto ) 0.9, Sodium Level 135L, Potassium Level 4.1, Chloride Level 101, Carbon Dioxide Level 25, Anion Gap 9, Blood Urea Nitrogen 16, Creatinine 0.6, Estimat Glomerular Filtration Rate > 60, Glucose Level 98, Calcium Level 9.3 Height (Feet): 5 Height (Inches): 11.00 Weight (Pounds): 290 General Appearance: lethargic EENT: normal ENT inspection Neck: normal alignment Cardiovascular: normal peripheral pulses, normal rate, regular rhythm Respiratory/Chest: chest wall non-tender, lungs clear, normal breath sounds Abdomen: normal bowel sounds, non tender, soft Extremities: normal inspection Edema: no edema noted Arm (L), no edema noted Arm (R), no edema noted Leg (L), no edema noted Leg (R), no edema noted Pedal (L), no edema noted Pedal (R), no edema noted Generalized Neurologic: responsive, motor weakness Skin: normal pigmentation, warm/dry Rocael Valdez DO Mar 07, 2018 14:01
--- NOTE | 2018-03-07 14:35 | NUR ---
*-* DISCHARGE PLANNED *-* PATIENT DISCAHRGED TO: [facility] ROOM# 111-B SKILLED T:[phone] FOR NURSE TO NURSE REPORT [facility] HAS BEEN ARRANGED FOR PICK AT 1530 S/[address] JENNY [id number]
[2018-03-07 16:00] VITALS: BP 132/71
--- NOTE | 2018-03-07 16:10 | NUR ---
NURSE NOTES: Patient discharged in stable condition. Patient confirmed he was in possession of all his belongings. Patient's IV removed and the IV site did not display any signs of bleeding, swelling or redness. Report given to Keiry at [facility]. Patient was transported via ambulance to [facility]. Report given to milk pickup truck driver. Patient did not display any signs of distress or SOB upon discharge. Patient alert and oriented x4.
--- NOTE | 2018-03-08 09:30 | Discharge Summary ---
Discharge Summary Discharge Summary _ DATE OF ADMISSION: 03/02/2018 DATE OF DISCHARGE: 03/07/2018 DISCHARGED BY:Dr. Valdez REASON FOR ADMISSION: 62 years old male with past medical history of hypertension, pacemaker, asthma/ COPD, schizophrenia, bipolar depression, presented to emergency room with complaints of chest pain . Patient reported left-sided chest pain that started at rest with radiation to shoulder. In the facility he was given 3 nitroglycerin , and en route to the hospital he received Aspirin provided by paramedics. Patient subsequently reported relief from pain. Upon evaluation vital signs were stable. Laboratory workup revealed mild leukocytosis WBC 12.2. Stable hemoglobin hematocrit. Stable electrolytes and renal parameters. Troponin negative. Pro BNP 70. EKG revealed paced rhythm , no acute ischemic changes. Urine toxicology screen was negative. Urinalysis revealed no evidence of UTI. Chest x-ray revealed no acute cardiopulmonary pathology. Patient admitted with diagnoses of chest pain , possible acute coronary syndrome. CONSULTANTS: acquisition advisor Dr. Avila pulmonary Dr. Brady ID specialist Dr. Jensen psychiatrist Dr. Batista Mixer Wet Pour Dr. Varela [facility]: Patient was admitted to monitored floor. Patient started on antiplatelet therapy with aspirin. Director Health closely followed. Serial troponin were negative. EKG revealed atrial paced rhythm, no acute ischemic changes. Acute myocardial infarction was ruled out. Per acquisition advisor no indication for proceeding with a cardiac stress test. Echocardiogram revealed preserved ejection fraction 60-65%. No evidence of wall motion abnormality. Right ventricular systolic pressure of 15. Blood pressure was managed with CATRACHO inhibitor. Blood pressure remained stable. Lipid panel revealed low HDL. Patient was educated on low-fat low- cholesterol diet . Pain management was addressed as needed. Superintendent [employer] followed. Pulse oximetry was stable on room air. Hand-held nebulizing treatment with bronchodilator was on board as needed. Antitussive provided as needed. No evidence of asthma exacerbation. DVT prophylaxis provided. Mixer Wet Pour consulted for elevated TSH. Patient started on Synthroid. Repeat thyroid function test in 4 weeks. Infectious disease specialist followed . Patient initially presented with leukocytosis, suspected to be reactive. No evidence of infectious process. Urinalysis negative. Chest x-ray revealed no acute cardiopulmonary process. Patient remained afebrile. ID specialist recommended to monitor patient off antibiotics. Patient remained clinically stable. Psychiatrist followed. Per psychiatrist patient has paranoid schizophrenia and major depressive disorder, recurrent with psychotic features. Psychiatric medication regimen was optimized to stabilize patient's mood. Patient provided with cognitive behavioral therapy. Patient clinically stabilized and [facility] FINAL DIAGNOSES: Noncardiac chest pain ( possibly due to paranoid schizophrenia) Dyslipidemia with low HDL Hypertension Dual-chamber pacemaker Hypothyroidism COPD/asthma Paranoid schizophrenia Major depressive disorder, recurrent, with psychotic features Bilateral leg edema DISCHARGE MEDICATIONS: See Medication Reconciliation list. DISCHARGE INSTRUCTIONS: Patient was discharged to the nursing home facility/[facility]. Follow up with medical doctor at the facility. I have been assigned to dictate discharge summary for this account. I was not involved in the patient's management. Lindy Bañuelos NP Mar 08, 2018 09:30
== END 2018-03-07 16:00 | DRG 313 ==
LOC: EDBD 20:47 → EMR 21:24 → 2E 21:30 → EDBEDREQ 23:13 → 2E 03-04 02:14
DX: R07.89 Other chest pain (principal); F20.0 Paranoid schizophrenia; F33.3 Major depressive disorder, recurrent, severe with psychotic symptoms; F31.9 Bipolar disorder, unspecified; E78.5 Hyperlipidemia, unspecified; I10 Essential (primary) hypertension; Z95.0 Presence of cardiac pacemaker; J44.9 Chronic obstructive pulmonary disease, unspecified; R60.9 Edema, unspecified; Z79.82 Long term (current) use of aspirin; Z96.642 Presence of left artificial hip joint; F41.9 Anxiety disorder, unspecified; E66.01 Morbid (severe) obesity due to excess calories; K76.9 Liver disease, unspecified; M10.9 Gout, unspecified
CPT/HCPCS: 36415; 71045; 80048; 80053; 80061; 80307; 81003; 82550; 83880; 84443; 84484; 85025; 85610; 85730; 86140; 93005; 93306; 94664; 99285